=== PATIENT | female | born 1945 | race Caucasian/White ===

== ENCOUNTER → 2018-08-29 | Outpatient (CLI) | payer MEDICARE | END | disposition home or self-care (01) | LOC: RADUSWWP 13:22 | PROVIDERS: ATTEND Podiatrist | DX: M79.604 Pain in right leg (principal); M79.605 Pain in left leg | CPT/HCPCS: 93923 ==

== ENCOUNTER 2018-10-05 10:22 | Emergency (ER) | payer MEDICARE ==
[2018-10-05 10:47] VITALS: TEMP 97.9
--- NOTE | 2018-10-05 11:21 | ED ---
General Adult HPI - General Chief complaint: Recheck/Abnormal Lab/Rx Stated complaint: high blood pressure Time Seen by Provider: 10/05/18 10:25 Source: patient, RN notes reviewed Mode of arrival: ambulatory Limitations: no limitations - History of Present Illness Initial comments: This is a 73-year-old female who presents emergency Department states her blood pressure was high this morning. Patient states she was seen at the wound clinic for her legs and they noted her blood pressure be high so they sent her to the emergency department. Patient states she dropped her blood pressure pill on the floor today and she threw it up because it was dirty and she did not take another one that she was in a [place]. Patient states her blood pressure was el evated in the wound center but she was having no symptoms. Patient denies any headache patient denies numbness weakness. Patient denies any blurred vision. Patient denies any chest pain or palpitations. Patient denies any difficulty breathing shortness of breath per patient denies any nausea vomiting diarrhea. Patient states yesterday in the previous days her blood pressure was normal for her but today it was mildly elevated but she believes is current she didn't take her blood pressure. - Related Data Home Medications Medication Instructions Recorded Confirmed ALPRAZolam [Xanax] 0.25 mg PO BID PRN 08/24/18 10/05/18 Albuterol Nebulized [Ventolin 2.5 mg INHALATION Q4H 08/24/18 10/05/18 Nebulized] Albuterol Sulfate [Proventil Hfa] 1 - 2 puff INHALATION Q6HR PRN 08/24/18 10/05/18 Alendronate Sodium [Fosamax] 70 mg PO WEEKLY 08/24/18 10/05/18 Butalb/APAP/Caff 50-325-40Mg 1 tab PO Q4H PRN 08/24/18 10/05/18 [Fioricet 50-325-40] Calcitriol [Rocaltrol] 0.25 mcg PO WEEKLY 08/24/18 10/05/18 Cetirizine HCl [Zyrtec] 10 mg PO DAILY 08/24/18 10/05/18 Enalapril [Vasotec] 10 mg PO DAILY 08/24/18 10/05/18 Ergocalciferol (Vitamin D2) 50,000 unit PO WEEKLY 08/24/18 10/05/18 [Drisdol] Fluticasone Propionate [Flovent 2 puff INHALATION BID 08/24/18 10/05/18 Hfa 110mcg] Furosemide [Lasix] 20 mg PO BID 08/24/18 10/05/18 Gabapentin [Neurontin] 300 mg PO TID 08/24/18 10/05/18 Glucosam/Rey-Msm1/C/Cristian/Bosw 2 each PO DAILY 08/24/18 10/05/18 [Glucosamine-Chondroitin Tablet] Lansoprazole [Prevacid] 30 mg PO DAILY 08/24/18 10/05/18 Levothyroxine Sodium [Synthroid] 2 tab PO DAILY 08/24/18 10/05/18 Methocarbamol [Robaxin-750] 750 mg PO Q8HR 08/24/18 10/05/18 Montelukast [Singulair] 10 mg PO HS 08/24/18 10/05/18 Multivitamins, Thera [Multivitamin 1 tab PO DAILY 08/24/18 10/05/18 (formulary)] Potassium Chloride [K-Tab ER] 20 meq PO DAILY 08/24/18 10/05/18 Rosuvastatin [Crestor] 10 mg PO DAILY 08/24/18 10/05/18 Sertraline HCl [Zoloft] 100 mg PO BID 08/24/18 10/05/18 Verapamil HCl [Verapamil ER] 180 mg PO BID 08/24/18 10/05/18 Warfarin [Coumadin] 5 mg PO DAILY 08/24/18 10/05/18 Allergies Allergy/AdvReac Type Severity Reaction Status Date / Time acetylcysteine Allergy Rash/Hives Verified 10/05/18 10:47 [From Mucomyst] aspirin [From Soma Compound] Allergy Rash/Hives Verified 10/05/18 10:47 astemizole [From Hismanal] Allergy Rash/Hives Verified 10/05/18 10:47 bee pollen Allergy Anaphylaxis Verified 10/05/18 10:47 calcium carbonate Allergy Anaphylaxis Verified 10/05/18 10:47 [From Os-Spencer] carisoprodol Allergy Rash/Hives Verified 10/05/18 10:47 [From Soma Compound] cephalexin [From Keflex] Allergy Rash/Hives Verified 10/05/18 10:47 cigarette smoke Allergy Rash/Hives Verified 10/05/18 10:47 [place] And Derivatives Allergy Rash/Hives Verified 10/05/18 10:47 [[place]] cromolyn Allergy Rash/Hives Verified 10/05/18 10:47 erythromycin base Allergy Rash/Hives Verified 10/05/18 10:47 estrogens, conjugated Allergy Anaphylaxis Verified 10/05/18 10:47 [From Prempro] hydrochlorothiazide Allergy Anaphylaxis Verified 10/05/18 10:47 [From Dyazide] isoetharine [From Bronkosol] Allergy Rash/Hives Verified 10/05/18 10:47 medroxyprogesterone Allergy Anaphylaxis Verified 10/05/18 10:47 [From Prempro] meperidine [From Demerol] Allergy Rash/Hives Verified 10/05/18 10:47 metoclopramide [From Reglan] Allergy Anaphylaxis Verified 10/05/18 10:47 metoprolol [From Toprol XL] Allergy Anaphylaxis Verified 10/05/18 10:47 mold Allergy Rash/Hives Verified 10/05/18 10:47 naproxen [From Anaprox] Allergy Anaphylaxis Verified 10/05/18 10:47 perindopril [From Aceon] Allergy Anaphylaxis Verified 10/05/18 10:47 promethazine [From Phenergan] Allergy Rash/Hives Verified 10/05/18 10:47 ragweed pollen Allergy Rash/Hives Verified 10/05/18 10:47 spironolactone Allergy Anaphylaxis Verified 10/05/18 10:47 [From Aldactone] triamterene [From Dyazide] Allergy Anaphylaxis Verified 10/05/18 10:47 radiology dye Allergy Anaphylaxis Uncoded 10/05/18 10:47 Review of Systems ROS Statement: Those systems with pertinent positive or pertinent negative responses have been documented in the HPI. ROS Other: All systems not noted in ROS Statement are negative. Past Medical History Past Medical History: Atrial Fibrillation, Asthma, Deep Vein Thrombosis (DVT), GERD/Reflux, Hypertension, Osteoarthritis (OA), Pulmonary Embolus (PE), Renal Disease, Thyroid Disorder Additional Past Medical History / Comment(s): MIGRAINE HEADACHE, RIGHT LEG-DVT History of Any Multi-Drug Resistant Organisms: MRSA Date of last positivie culture/infection: 2008 MDRO Source:: LEFT KNEE Past Surgical History: Appendectomy, Cholecystectomy, Tonsillectomy Additional Past Surgical History / Comment(s): D&C, Past Anesthesia/Blood Transfusion Reactions: No Reported Reaction Past Psychological History: No Psychological Hx Reported Smoking Status: Never smoker Past Alcohol Use History: None Reported Past Drug Use History: None Reported - Past Family History Mother Family Medical History: No Reported History Father Family Medical History: Hypertension General Exam - General Exam Comments Initial Comments: GENERAL: Patient is well-developed and well-nourished. Patient is nontoxic and well- hydrated and is in no acute distress. ENT: Neck is soft and supple. No significant lymphadenopathy is noted. Oropharynx is clear. Moist mucous membranes. Neck has full range of motion without eliciting any pain. EYES: The sclera were anicteric and conjunctiva were pink and moist. Extraocular movements were intact and pupils were equal round and reactive to light. Eyelids were unremarkable. PULMONARY: Unlabored respirations. Good breath sounds bilaterally. No audible rales rhonchi or wheezing was noted. CARDIOVASCULAR: There is a regular rate and rhythm without any murmurs gallops or rubs. ABDOMEN: Soft and nontender with normal bowel sounds. SKIN: Skin is clear with no lesions or rashes and otherwise unremarkable. NEUROLOGIC: Patient is alert and oriented x3. Cranial nerves II through XII are grossly intact. Motor and sensory are also intact. Normal speech, volume and content. Symmetrical smile. MUSCULOSKELETAL: Normal extremities with adequate strength and full range of motion. Bilateral edema LYMPHATICS: No significant lymphadenopathy is noted PSYCHIATRIC: Normal psychiatric evaluation. Limitations: no limitations Course Vital Signs 10/05/18 10:43 Temperature 97.9 F Pulse Rate 93 Respiratory 16 Rate Blood Pressure 169/73 O2 Sat by Pulse 98 Oximetry Disposition Clinical Impression: Essential hypertension Disposition: HOME SELF-CARE Instructions (If sedation given, give patient instructions): Hypertension (ED) Is patient prescribed a controlled substance at d/c from ED?: No Referrals: Tomás Hanks DO [Primary Care Provider] - 1-2 days Time of Disposition: 11:20
[2018-10-05] MEDS ORDERED: LISINOPRIL 10 MG TAB PO STA (11:31)
[2018-10-05] MEDS ORDERED: VERAPAMIL SR 180 MG TABLET.ER PO STA (11:34)
[2018-10-05 11:44] VITALS: BP 175/78; PULSE 77; RESP 18
== END 2018-10-05 11:56 | disposition home or self-care (01) ==
LOC: EC 10:22
DX: I10 Essential (primary) hypertension (principal); I48.91 Unspecified atrial fibrillation; J45.909 Unspecified asthma, uncomplicated; K21.9 Gastro-esophageal reflux disease without esophagitis; E07.9 Disorder of thyroid, unspecified; Z86.718 Personal history of other venous thrombosis and embolism; Z86.711 Personal history of pulmonary embolism; Z86.14 Personal history of Methicillin resistant Staphylococcus aureus infection; Z79.51 Long term (current) use of inhaled steroids; Z79.890 Hormone replacement therapy; Z79.01 Long term (current) use of anticoagulants; Z79.899 Other long term (current) drug therapy; Z88.8 Allergy status to other drugs, medicaments and biological substances; Z88.6 Allergy status to analgesic agent; Z91.048 Other nonmedicinal substance allergy status; Z88.1 Allergy status to other antibiotic agents; Z91.018 Allergy to other foods; Z88.5 Allergy status to narcotic agent; Z91.041 Radiographic dye allergy status
CPT/HCPCS: 99283

== ENCOUNTER 2018-10-09 17:33 | Inpatient (IN) | payer MEDICARE ==
[2018-10-09] MEDS ORDERED: SODIUM CHLORIDE 0.9% 1,000 ML IV ONE (18:18)
--- NOTE | 2018-10-09 18:21 | ED ---
General Adult HPI - General Chief complaint: Wound/Laceration Stated complaint: LEFT LEG WOUND PROBLEM Time Seen by Provider: 10/09/18 18:03 Source: patient Mode of arrival: wheelchair Limitations: no limitations - History of Present Illness Initial comments: 73-year-old female with PMH of chronic wounds, atrial fibrillation, PE/DVT on coumadin (last INR unknown) presenting today for chief complaint of increased swelling and redness legs bilaterally. Patient states that she has had chronic wounds of the bilateral lower extremities for the past 2 years. She states they have been treating them more aggressively for the past 3 months, she states her physician managing the wounds is Dr. Vu. She states that she was seen last at the wound clinic on Monday. She states that at this time legs are mildly erythematous and has been chronically swollen. She states that since appointment the swelling has been increasing as well as redness and today she felt as though her skin was tight and it was burning. Patient applied lotion attempt to help however this did not alleviate symptoms. Patient has a fever, chills, general malaise. Remaining review of systems negative, patient denies any recent shortness of breath, chest pain, back pain, abdominal pain, nausea or vomiting, numbness or tingling, dysuria or hematuria, constipation or diarrhea, headaches or visual changes, or any other complaints. Upon arrival patient does not appear toxic, appearing well-afebrile with VS within acceptable limits. - Related Data Home Medications Medication Instructions Recorded Confirmed ALPRAZolam [Xanax] 0.25 mg PO BID PRN 08/24/18 10/09/18 Albuterol Nebulized [Ventolin 2.5 mg INHALATION RT-QID PRN 08/24/18 10/09/18 Nebulized] Albuterol Sulfate [Proventil Hfa] 1 - 2 puff INHALATION RT-Q6H PRN 08/24/18 0 10/09/18 Alendronate Sodium [Fosamax] 70 mg PO Q7D 08/24/18 10/09/18 Butalb/APAP/Caff 50-325-40Mg 1 tab PO Q4H PRN 08/24/18 10/09/18 [Fioricet 50-325-40] Calcitriol [Rocaltrol] 0.25 mcg PO MOWEFR 08/24/18 10/09/18 Enalapril [Vasotec] 10 mg PO DAILY 08/24/18 10/09/18 Ergocalciferol (Vitamin D2) 50,000 unit PO Q7D 08/24/18 10/09/18 [Drisdol] Furosemide [Lasix] 20 mg PO BID 08/24/18 10/09/18 Gabapentin [Neurontin] 300 mg PO TID 08/24/18 10/09/18 Glucosam/Rey-Msm1/C/Cristian/Bosw 2 tab PO DAILY 08/24/18 10/09/18 [Glucosamine-Chondroitin Tablet] Levothyroxine Sodium [Synthroid] 250 mcg PO DAILY 08/24/18 10/09/18 Methocarbamol [Robaxin-750] 750 mg PO Q8HR 08/24/18 10/09/18 Montelukast [Singulair] 10 mg PO HS 08/24/18 10/09/18 Multivitamins, Thera [Multivitamin 1 tab PO DAILY 08/24/18 10/09/18 (formulary)] Potassium Chloride [K-Tab ER] 20 meq PO DAILY 08/24/18 10/09/18 Rosuvastatin [Crestor] 10 mg PO DAILY 08/24/18 10/09/18 Sertraline HCl [Zoloft] 200 mg PO DAILY 08/24/18 10/09/18 Warfarin [Coumadin] 10 mg PO HS 08/24/18 10/09/18 Clotrimazole/Betamethasone Dip 1 applic TOPICAL BID 10/05/18 10/09/18 [Lotrisone Cream] EPINEPHrine (Auto Inject) [Epipen] 0.3 mg IM ONCE PRN 10/05/18 10/09/18 Fexofenadine HCl [Jamia Allergy] 180 mg PO DAILY PRN 10/05/18 10/09/18 Fluticasone Propionate [Flovent 2 puff INHALATION RT-BID 10/05/18 10/09/18 Hfa 110 mcg] Lansoprazole [Prevacid] 30 mg PO DAILY 10/05/18 10/09/18 Verapamil Sr [Isoptin Sr] 180 mg PO BID 10/05/18 10/09/18 Allergies Allergy/AdvReac Type Severity Reaction Status Date / Time acetylcysteine Allergy Rash/Hives Verified 10/09/18 18:19 [From Mucomyst] aspirin [From Soma Compound] Allergy Rash/Hives Verified 10/09/18 18:19 astemizole [From Hismanal] Allergy Rash/Hives Verified 10/09/18 18:19 bee pollen Allergy Anaphylaxis Verified 10/09/18 18:19 calcium carbonate Allergy Anaphylaxis Verified 10/09/18 18:19 [From Os-Spencer] carisoprodol Allergy Rash/Hives Verified 10/09/18 18:19 [From Soma Compound] cephalexin [From Keflex] Allergy Rash/Hives Verified 10/09/18 18:19 cigarette smoke Allergy Rash/Hives Verified 10/09/18 18:19 [place] And Derivatives Allergy Rash/Hives Verified 10/09/18 18:19 [[place]] cromolyn Allergy Rash/Hives Verified 10/09/18 18:19 erythromycin base Allergy Rash/Hives Verified 10/09/18 18:19 estrogens, conjugated Allergy Anaphylaxis Verified 10/09/18 18:19 [From Prempro] hydrochlorothiazide Allergy Anaphylaxis Verified 10/09/18 18:19 [From Dyazide] isoetharine [From Bronkosol] Allergy Rash/Hives Verified 10/09/18 18:19 medroxyprogesterone Allergy Anaphylaxis Verified 10/09/18 18:19 [From Prempro] meperidine [From Demerol] Allergy Rash/Hives Verified 10/09/18 18:19 metoclopramide [From Reglan] Allergy Anaphylaxis Verified 10/09/18 18:19 metoprolol [From Toprol XL] Allergy Anaphylaxis Verified 10/09/18 18:19 mold Allergy Rash/Hives Verified 10/09/18 18:19 naproxen [From Anaprox] Allergy Anaphylaxis Verified 10/09/18 18:19 perindopril [From Aceon] Allergy Anaphylaxis Verified 10/09/18 18:19 promethazine [From Phenergan] Allergy Rash/Hives Verified 10/09/18 18:19 ragweed pollen Allergy Rash/Hives Verified 10/09/18 18:19 spironolactone Allergy Anaphylaxis Verified 10/09/18 18:19 [From Aldactone] triamterene [From Dyazide] Allergy Anaphylaxis Verified 10/09/18 18:19 radiology dye Allergy Anaphylaxis Uncoded 10/09/18 17:46 Review of Systems ROS Statement: Those systems with pertinent positive or pertinent negative responses have been documented in the HPI. ROS Other: All systems not noted in ROS Statement are negative. Past Medical History Past Medical History: Atrial Fibrillation, Asthma, Deep Vein Thrombosis (DVT), GERD/Reflux, Hypertension, Osteoarthritis (OA), Pulmonary Embolus (PE), Renal Disease, Thyroid Disorder Additional Past Medical History / Comment(s): MIGRAINE HEADACHE, RIGHT LEG-DVT History of Any Multi-Drug Resistant Organisms: MRSA Date of last positivie culture/infection: 2008 MDRO Source:: LEFT KNEE Past Surgical History: Appendectomy, Cholecystectomy, Tonsillectomy Additional Past Surgical History / Comment(s): D&C, Past Anesthesia/Blood Transfusion Reactions: No Reported Reaction Past Psychological History: No Psychological Hx Reported Smoking Status: Never smoker Past Alcohol Use History: None Reported Past Drug Use History: None Reported - Past Family History Mother Family Medical History: No Reported History Father Family Medical History: Hypertension General Exam - General Exam Comments Initial Comments: General: The patient is awake and alert, in no distress. Eye: Pupils are equal, round and reactive to light, extra-ocular movements are intact. No nystagmus. There is normal conjunctiva bilaterally. No signs of icterus. Ears, nose, mouth and throat: There are moist mucous membranes and no oral lesions. Neck: The neck is supple, there is no tenderness or JVD. Cardiovascular: There is a regular rate and rhythm. No murmur, rub or gallop is appreciated. Respiratory: Lungs are clear to auscultation, respirations are non-labored, breath sounds are equal. No wheezes, stridor, rales, or rhonchi. Gastrointestinal: Soft, non-distended, non-tender abdomen without masses or organomegaly noted. There is no rebound or guarding present. Musculoskeletal: Normal ROM, no tenderness. Strength 5/5. Sensation intact. DP pulses equal bilaterally 2+. Neurological: A&O x 3. CN II-XII intact, There are no obvious motor or sensory deficits. Coordination appears grossly intact. Speech is normal. Skin: Skin is warm and dry and no rashes or lesions are noted. Significant erythema and warmth with poorly demarcated borders >50% of the left LE and ~25- 50% of the right LE. Pitting edema of the LE b/l Psychiatric: Cooperative, appropriate mood & affect, normal judgment. Limitations: no limitations Course Vital Signs 10/09/18 10/09/18 17:42 20:58 Temperature 98.2 F 98.8 F Pulse Rate 90 87 Respiratory 18 14 Rate Blood Pressure 157/79 134/77 O2 Sat by Pulse 98 95 Oximetry Medical Decision Making - Medical Decision Making 73-year-old female presenting for increasing warmth, burning of the bilateral lower extremities with left greater than right. Patient states that she has been treated at the wound center, she states she did have mild erythema however today it seemed to increase significantly and is now painful, burning. There is extensive cellulitis of the lower chemistry bilaterally with left greater than right. Area warm to palpation. 8 patient afebrile does not appear toxic. Broad spectrum antibiotics initiated. Patient will be admitted for intravenous antibiotic therapy given the extent of cellulitis. Laboratory studies stable, there is elevation of CRP. Patient is agreeable to admission. I did discuss the case attending provider Dr. Moy who is agreeable with admission who will contact admitting provider. - Lab Data Result diagrams: 10/09/18 08:40 10/09/18 08:40 Lab Results 10/09/18 10/09/18 10/09/18 Range/Units 08:40 08:40 08:40 WBC 6.2 (3.8-10.6) k/uL RBC 4.72 (3.80-5.40) m/uL Hgb 13.1 (11.4-16.0) gm/dL Hct 41.1 (34.0-46.0) % MCV 87.1 (80.0-100.0) fL MCH 27.8 (25.0-35.0) pg MCHC 32.0 (31.0-37.0) g/dL RDW 13.7 (11.5-15.5) % Plt Count 221 (150-450) k/uL Neutrophils % 69 % Lymphocytes % 18 % Monocytes % 7 % Eosinophils % 3 % Basophils % 0 % Neutrophils # 4.3 (1.3-7.7) k/uL Lymphocytes # 1.1 (1.0-4.8) k/uL Monocytes # 0.5 (0-1.0) k/uL Eosinophils # 0.2 (0-0.7) k/uL Basophils # 0.0 (0-0.2) k/uL ESR Cancelled PT (9.0-12.0) sec INR (<1.2) APTT (22.0-30.0) sec Sodium 139 (137-145) mmol/L Potassium 4.6 (3.5-5.1) mmol/L Chloride 105 (98-107) mmol/L Carbon Dioxide 26 (22-30) mmol/L Anion Gap 8 mmol/L BUN 29 H (7-17) mg/dL Creatinine 0.91 (0.52-1.04) mg/dL Est GFR (CKD-EPI)AfAm 73 (>60 ml/min/1.73 sqM) Est GFR (CKD-EPI)NonAf 63 (>60 ml/min/1.73 sqM) Glucose 92 (74-99) mg/dL Plasma Lactic Acid Armond 0.9 (0.7-2.0) mmol/L Calcium 9.9 (8.4-10.2) mg/dL Total Bilirubin 0.5 (0.2-1.3) mg/dL AST 22 (14-36) U/L ALT 29 (9-52) U/L Alkaline Phosphatase 57 (38-126) U/L C-Reactive Protein 16.9 H (<10.0) mg/L Total Protein 7.2 (6.3-8.2) g/dL Albumin 4.2 (3.5-5.0) g/dL 10/09/18 Range/Units 08:40 WBC (3.8-10.6) k/uL RBC (3.80-5.40) m/uL Hgb (11.4-16.0) gm/dL Hct (34.0-46.0) % MCV (80.0-100.0) fL MCH (25.0-35.0) pg MCHC (31.0-37.0) g/dL RDW (11.5-15.5) % Plt Count (150-450) k/uL Neutrophils % % Lymphocytes % % Monocytes % % Eosinophils % % Basophils % % Neutrophils # (1.3-7.7) k/uL Lymphocytes # (1.0-4.8) k/uL Monocytes # (0-1.0) k/uL Eosinophils # (0-0.7) k/uL Basophils # (0-0.2) k/uL ESR PT 10.2 (9.0-12.0) sec INR 0.9 (<1.2) APTT 25.2 (22.0-30.0) sec Sodium (137-145) mmol/L Potassium (3.5-5.1) mmol/L Chloride (98-107) mmol/L Carbon Dioxide (22-30) mmol/L Anion Gap mmol/L BUN (7-17) mg/dL Creatinine (0.52-1.04) mg/dL Est GFR (CKD-EPI)AfAm (>60 ml/min/1.73 sqM) Est GFR (CKD-EPI)NonAf (>60 ml/min/1.73 sqM) Glucose (74-99) mg/dL Plasma Lactic Acid Armond (0.7-2.0) mmol/L Calcium (8.4-10.2) mg/dL Total Bilirubin (0.2-1.3) mg/dL AST (14-36) U/L ALT (9-52) U/L Alkaline Phosphatase (38-126) U/L C-Reactive Protein (<10.0) mg/L Total Protein (6.3-8.2) g/dL Albumin (3.5-5.0) g/dL Disposition Clinical Impression: Cellulitis of both lower extremities Disposition: ADMITTED IP TO THIS [facility] Condition: Stable Is patient prescribed a controlled substance at d/c from ED?: No Time of Disposition: 20:25 Decision to Admit Reason: Admit from EC Decision Date: 10/09/18 Decision Time: 19:20
[2018-10-09] MEDS ORDERED: LEVOFLOXACIN 750MG-D5W PMX 750 MG in DEXTROSE/WATER 1 150ML.BAG IVPB STA (18:50)
[2018-10-09 18:57] LABS: Basophils % (A) 0 %; Eosinophils # (A) 0.2 k/uL (0-0.7); Eosinophils % (A) 3 %; HCT 41.1 % (34.0-46.0); HGB 13.1 gm/dL (11.4-16.0); Lymphocytes # (A) 1.1 k/uL (1.0-4.8); Lymphocytes % (A) 18 %; MCH 27.8 pg (25.0-35.0); MCV 87.1 fL (80.0-100.0); Mean Platelet Volume 8.6; Monocytes # (A) 0.5 k/uL (0-1.0); Monocytes % (A) 7 %; Neutrophils # (A) 4.3 k/uL (1.3-7.7); Neutrophils % (A) 69 %; Platelet Count 221 k/uL (150-450); RBC 4.72 m/uL (3.80-5.40); RDW 13.7 % (11.5-15.5); WBC 6.2 k/uL (3.8-10.6)
[2018-10-09 19:08] LABS: INR 0.9 (<1.2); Partial Thromboplastin Time 25.2 sec (22.0-30.0); Prothrombin Time 10.2 sec (9.0-12.0)
[2018-10-09] MEDS ORDERED: NALOXONE 0.4 MG/ML 1 ML VIAL IV PRN (19:13)
[2018-10-09 19:20] LABS: Albumin 4.2 g/dL (3.5-5.0); C Reactive Protein 16.9 mg/L (<10.0); Calcium 9.9 mg/dL (8.4-10.2); Potassium 4.6 mmol/L (3.5-5.1); Total Bilirubin 0.5 mg/dL (0.2-1.3); Total Protein 7.2 g/dL (6.3-8.2)
[2018-10-09] MEDS: SODIUM CHLORIDE 0.9% 1,000 ML IV SCH (19:32)
[2018-10-10] MEDS ORDERED: ALPRAZolam 0.25 MG TAB PO PRN (06:14)
[2018-10-10] MEDS ORDERED: EPINEPHrine 1 MG/ML 1 ML AMP IM PRN (06:14)
[2018-10-10] MEDS ORDERED: ALBUTEROL NEBULIZED 2.5 MG/3 ML INHALATION PRN (06:14)
[2018-10-10] MEDS ORDERED: NON-FORMULARY DRUG (Fexofenadine Hcl [Allegra Allergy] 180 MG) PO PRN (06:14)
[2018-10-10] MEDS ORDERED: ERGOCALCIFEROL 50,000 UNIT CAP PO SCH (06:15)
[2018-10-10 08:48] LABS: Prothrombin Time 11.1 sec (9.0-12.0)
[2018-10-10] MEDS ORDERED: [UNRECOGNIZED DRUG - OTHER] PO SCH (09:00)
[2018-10-10] MEDS: PANTOPRAZOLE 40 MG TABLET PO SCH (09:14)
[2018-10-10] MEDS: ATORVASTATIN 20 MG TAB PO SCH (09:14)
[2018-10-10] MEDS: LISINOPRIL 20 MG TAB PO SCH (09:14)
[2018-10-10] MEDS: FUROSEMIDE 20 MG TAB PO SCH ×2 (09:14→16:26)
[2018-10-10] MEDS: GABAPENTIN 300 MG CAP PO SCH ×3 (09:14→21:49)
[2018-10-10] MEDS: SODIUM CHLORIDE 0.9% 1,000 ML IV SCH ×2 (09:14→20:38)
[2018-10-10] MEDS: SERTRALINE 100 MG TAB PO SCH (09:15)
[2018-10-10] MEDS: POTASSIUM CHLORIDE ER 20 MEQ TAB.ER PO SCH (09:15)
[2018-10-10] MEDS: LEVOTHYROXINE 125 MCG TAB PO SCH (09:24)
[2018-10-10] MEDS: CLOTRIMAZOLE/BETAMETH 1-0.05% CREAM 45 GM TUBE TOPICAL SCH ×2 (09:25→21:00)
[2018-10-10] MEDS: VERAPAMIL SR 180 MG TABLET.ER PO SCH ×2 (09:25→20:38)
--- NOTE | 2018-10-10 09:47 | HP ---
HISTORY AND PHYSICAL CHIEF COMPLAINT: A 73-year-old white female with past medical history of chronic wound, atrial fibrillation, pulmonary embolism, DVT on Coumadin. The last INR presenting with increased swelling, redness to the lower legs, chronic wounds bilateral lower extremities for 2 years. She has been seeing Dr. Vu. They have been treating more aggressively last 3 weeks. Her legs are severely swollen and red and throughout the entire legs has severe lymphedema type changes. HOME MEDICATIONS: Home medications include Xanax, albuterol, Fosamax, Fioricet, Rocaltrol, Vasotec, vitamin D, Lasix, Neurontin, glucosamine, Synthroid, Robaxin, Singulair, multivitamin, Crestor, Zoloft, Coumadin. ALLERGIES: She is allergic to multiple things. Please see list. PAST MEDICAL HISTORY: Pulmonary embolism, hypertension, osteoarthritis, renal disease, hypothyroidism, A. fib, asthma, DVT, GERD. Negative except for mentioned in HPI. FAMILY HISTORY: Mother negative. Father hypertension. PHYSICAL EXAMINATION: Obese, white female, in no acute distress. Pupils equal, round, react to light and accommodation. NECK: Supple. No mass. PSYCH: Fair mood and affect. NEUROLOGIC: Cranial nerves intact. HEART: S1, S2. GI: Soft, nontender. MUSCULOSKELETAL: Normal range of motion. NEUROLOGIC: Alert and oriented x3. SKIN: No rashes or lesions except for lower legs with extremely red and deep marked redness, warmth and swelling to bilateral legs from the toes up to the knees bilaterally. Temp 98.2, pulse 80 to 90, respiratory rate 14 to 18, blood pressure 130s to 150s over 70s, O2 of 95% to 98% on room air. ASSESSMENT: 1. Extensive cellulitis of the lower extremities bilaterally. 2. Bilateral lymphedema type changes. IV antibiotics will be needed. She has multiple allergies. Infectious Disease will be consulted. Extreme fast swelling and redness that has progressed over the past day or 2 significantly fast. We have to admit her right away. Lactic acid is negative. White count is normal so far. C-reactive protein is high at 16.9. We will get a consult with Infectious Disease and possible vascular surgeon. MMODL / IJN: [id number] /
--- NOTE | 2018-10-10 10:12 | US ---
EXAMINATION TYPE: US venous doppler duplex LE DATE OF EXAM: 10/10/2018 9:46 AM COMPARISON: NONE CLINICAL HISTORY: swelling. SIDE PERFORMED: Bilateral TECHNIQUE: The lower extremity deep venous system is examined utilizing real time linear array sonog ana with graded compression, doppler sonography and color-flow sonography. VESSELS IMAGED: External Iliac Vein (EIV) Common Femoral Vein Deep Femoral Vein Greater Saphenous Vein * Femoral Vein Popliteal Vein Small Saphenous Vein * Proximal Calf Veins, not seen due to swelling and obesity (* superficial vessels) Morbidly obese patient, technically difficult study. Right Leg: Appears negative for DVT Left Leg: Appears negative for DVT IMPRESSION: 1. No diagnostic evidence of DVT.
[2018-10-10] MEDS: MULTIVITAMINS, THERA 1 EACH TAB PO SCH (11:04)
[2018-10-10] MEDS: CALCITRIOL 0.25 MCG CAP PO SCH (11:04)
[2018-10-10] MEDS: FLUTICASONE 110 MCG INHALER INHALATION SCH ×2 (11:31→21:01)
--- NOTE | 2018-10-10 12:13 | P.CON ---
Consult Note - . Consult date: 10/10/18 Assessment/Plan:: Wound care and vascular consultation: Reason for consult: This 73-year-old woman is being seen by Dr. sumner in the wound center. They have healed up her open ulcerations. She was readmitted with leg swelling. She has had no further drainage. Physical examination: Obese alert oriented 73-year-old woman in no distress. Looking a bit old for her chronologic years. She has 2-3+ edema of both lower legs. She has circumferential erythema just below mid calf on both legs. There is no open ulceration or weeping. This patient's ulcerations have in fact healed. She currently needs compression. She is working on fitting for CircAid stockings with Dr. Vu in the wound center. I have instructed nursing as to the placement of Lobo wraps. We will see her further as needed.
[2018-10-10] MEDS: CLINDAMYCIN 600 MG in DEXTROSE 5% IN WATER 50 ML IVPB SCH ×4 (16:25→23:55)
[2018-10-10] MEDS: WARFARIN 10 MG TAB PO SCH (16:26)
[2018-10-10] MEDS: MONTELUKAST 10 MG TAB PO SCH (20:37)
[2018-10-10] MEDS: BUTALB/APAP/CAFF 50-325-40MG TAB PO PRN (20:37)
--- NOTE | 2018-10-11 00:11 | CONS ---
CONSULTATION DATE OF SERVICE: 10/10/2018. REASON FOR CONSULTATION: Bilateral lower extremity cellulitis. HISTORY OF PRESENT ILLNESS: The patient is a 73-year-old female with past medical history significant for PE, DVT, atrial fibrillation with the patient is on Coumadin. Patient presenting to the ER at [facility] yesterday with chief complaints of increasing swelling and redness to both legs. The patient's symptoms have been going for about a week before she was admitted to the hospital. The patient has been complaining of dull aching pain to the both legs at times burning with intensity of 5 to 6/10, worse with weightbearing. Currently with blisters on the open wound or any drainage. Denies high- grade fever. However did have some chills. With these symptoms, the patient presented to the hospital. Patient was evaluated by the ER physician. The patient did have lower extremity Doppler which was negative for DVT. No fevers were recorded and the patient white count was normal. The patient did have multiple antibiotic allergies. The patient was admitted to the hospital. Infectious Disease was consulted for further recommendations regarding antibiotic therapy. REVIEW OF SYSTEMS: Positive points have been mentioned in HPI. Rest of the 14 review of systems has been negative. PAST MEDICAL HISTORY: DVT/PE, chronic venous stasis ulcer to the leg, atrial fibrillation, asthma, gastroesophageal reflux disease, hypothyroidism, osteoarthritis, hypertension, previous history of MRSA infection. PAST SURGICAL HISTORY: Appendectomy, cholecystectomy, tonsillectomy. SOCIAL HISTORY: No history of smoking, drinking or drug use. FAMILY HISTORY: Father history of hypertension. ALLERGIES: TO MULTIPLE MEDICATION MORE THAN 20 OF THEM HAS BEEN LISTED ON THE CHART INCLUDING ALLERGIES TO CEPHALEXIN AND PENICILLIN. MEDICATIONS: Medications include the patient is currently on , Ventolin. Xanax Lipitor, Lotrisone, Epinephrine, Lasix, Neurontin, Synthroid, Zestril, Singulair, Theragran, Narcan, Protonix, K-Dur, Zoloft, . PHYSICAL EXAMINATION: On examination, blood pressure 147/69 with a pulse of 74, temperature is 97.5. She is 96% on room air. General description is an elderly female lying in bed in no distress. No tachypnea or accessory muscles of respiration use. HEENT: Shows no pallor or scleral icterus. Oral mucosal membranes are dry. No pharyngeal erythema or thrush. NECK: Trachea is central. No thyromegaly. LUNGS: Unlabored breathing. Clear to auscultation anteriorly. Heart S1, S2. Regular rate and rhythm. ABDOMEN: Soft, no tenderness. No guarding or rigidity. Extremities diffuse swelling and redness with some superficial pressure on the right leg. No purulent drainage. Neurological: Patient is awake, alert, oriented x3. Mood and affect normal. LABS: Hemoglobin is 13.1 with a white count of 6.2, BUN of 29, creatinine 0.91. Liver enzymes are normal. White count has been normal. Blood culture obtained currently pending. DIAGNOSTIC IMPRESSION AND PLAN: 1. Patient with bilateral lower extremity cellulitis. The patient did have diffuse swelling and redness likely streptococcal disease. 2. The patient to have multiple antibiotic allergies that will limit the number of antibiotics that could be used. PLAN: 1. Clindamycin and IV piggyback q.8 hours. 2. dressing to the open area on the right leg followed by Lobo wrap from just above to below the knee. 3. We will follow up on clinical condition and culture to further adjust medication if needed. Thank you for this consultation. Will follow this patient along with you. MMODL / IJN: [id number] /
[2018-10-11] MEDS: LEVOTHYROXINE 125 MCG TAB PO SCH (05:47)
[2018-10-11] MEDS: FLUTICASONE 110 MCG INHALER INHALATION SCH ×2 (08:01→21:02)
[2018-10-11 08:50] LABS: INR 1.1 (<1.2); Prothrombin Time 11.4 sec (9.0-12.0)
[2018-10-11] MEDS: POTASSIUM CHLORIDE ER 20 MEQ TAB.ER PO SCH (09:41)
[2018-10-11] MEDS: LISINOPRIL 20 MG TAB PO SCH (09:41)
[2018-10-11] MEDS: ATORVASTATIN 20 MG TAB PO SCH (09:41)
[2018-10-11] MEDS: GABAPENTIN 300 MG CAP PO SCH ×3 (09:42→21:31)
[2018-10-11] MEDS: SERTRALINE 100 MG TAB PO SCH (09:43)
[2018-10-11] MEDS: PANTOPRAZOLE 40 MG TABLET PO SCH (09:43)
[2018-10-11] MEDS: FUROSEMIDE 20 MG TAB PO SCH ×2 (09:43→15:57)
[2018-10-11] MEDS: VERAPAMIL SR 180 MG TABLET.ER PO SCH ×2 (09:44→21:31)
[2018-10-11] MEDS: CLOTRIMAZOLE/BETAMETH 1-0.05% CREAM 45 GM TUBE TOPICAL SCH ×2 (09:46→21:19)
[2018-10-11] MEDS: CLINDAMYCIN 600 MG in DEXTROSE 5% IN WATER 50 ML IVPB SCH ×6 (11:09→23:31)
--- NOTE | 2018-10-11 15:27 | PN ---
PROGRESS NOTE DATE OF SERVICE: 10/11/2018 REASON FOR FOLLOWUP: Bilateral lower extremity cellulitis. INTERVAL HISTORY: The patient is currently afebrile. The patient is breathing comfortably. The pain she was complaining of yesterday seems to have slightly improved. Denies having any abdominal pain and no diarrhea with current antibiotic therapy. PHYSICAL EXAMINATION: Blood pressure 156/82 with a pulse of 66, temperature 97.7, she is 97% on room air. General description is an elderly female, up in the chair in no distress. RESPIRATORY SYSTEM: Unlabored breathing, clear to auscultation anteriorly. HEART: S1, S2. Regular rate and rhythm. ABDOMEN: Soft, no tenderness. Bilateral leg swelling persisted, only slight decrease. LABS: INR is 1.1. Blood culture has been negative. DIAGNOSTIC IMPRESSION AND PLAN: Patient with bilateral lower extremity cellulitis. The patient did have diffuse swelling, consistent with multiple antibiotic allergy. Currently on the clindamycin to continue along with Lobo wrap to keep some of the swelling down and evaluate the legs tomorrow. Continue supportive care. MMODL / IJN: [id number] /
[2018-10-11] MEDS: SODIUM CHLORIDE 0.9% 1,000 ML IV SCH ×2 (17:09→23:31)
[2018-10-11] MEDS: MULTIVITAMINS, THERA 1 EACH TAB PO SCH (17:15)
[2018-10-11] MEDS: WARFARIN 10 MG TAB PO SCH (18:01)
[2018-10-11] MEDS: MONTELUKAST 10 MG TAB PO SCH (21:31)
[2018-10-12] MEDS: LEVOTHYROXINE 125 MCG TAB PO SCH (05:49)
[2018-10-12] MEDS: PANTOPRAZOLE 40 MG TABLET PO SCH (07:57)
[2018-10-12] MEDS: ATORVASTATIN 20 MG TAB PO SCH (07:57)
[2018-10-12] MEDS: LISINOPRIL 20 MG TAB PO SCH (07:57)
[2018-10-12] MEDS: CLINDAMYCIN 600 MG in DEXTROSE 5% IN WATER 50 ML IVPB SCH ×4 (07:57→17:34)
[2018-10-12] MEDS: FUROSEMIDE 20 MG TAB PO SCH ×2 (07:58→17:35)
[2018-10-12] MEDS: GABAPENTIN 300 MG CAP PO SCH ×3 (07:58→22:41)
[2018-10-12] MEDS: SERTRALINE 100 MG TAB PO SCH (07:58)
[2018-10-12] MEDS: POTASSIUM CHLORIDE ER 20 MEQ TAB.ER PO SCH (07:59)
[2018-10-12] MEDS: VERAPAMIL SR 180 MG TABLET.ER PO SCH ×2 (07:59→22:41)
[2018-10-12 08:38] LABS: INR 1.2 (<1.2); Prothrombin Time 12.2 sec (9.0-12.0)
[2018-10-12] MEDS: FLUTICASONE 110 MCG INHALER INHALATION SCH ×2 (09:17→20:00)
[2018-10-12] MEDS: BUTALB/APAP/CAFF 50-325-40MG TAB PO PRN ×2 (11:54→17:34)
[2018-10-12] MEDS: CALCITRIOL 0.25 MCG CAP PO SCH (11:54)
[2018-10-12] MEDS: MULTIVITAMINS, THERA 1 EACH TAB PO SCH (11:54)
[2018-10-12] MEDS: CLOTRIMAZOLE/BETAMETH 1-0.05% CREAM 45 GM TUBE TOPICAL SCH ×2 (11:58→22:41)
[2018-10-12] MEDS: SODIUM CHLORIDE 0.9% 1,000 ML IV SCH (17:33)
[2018-10-12] MEDS ORDERED: WARFARIN 3 MG TAB PO ONE (18:00)
[2018-10-12] MEDS: MONTELUKAST 10 MG TAB PO SCH (22:42)
--- NOTE | 2018-10-12 23:22 | PN ---
PROGRESS NOTE DATE OF SERVICE: 10/12/2018. REASON FOR FOLLOWUP: Bilateral lower extremity cellulitis. INTERVAL HISTORY: The patient is currently afebrile. The patient is breathing comfortably. Denies any chest pain or cough. Leg swelling and redness has improved. No nausea or vomiting and no diarrhea. PHYSICAL EXAMINATION: Blood pressure 150/73 with a pulse of 68, temperature 98, she is 97% on room air. GENERAL DESCRIPTION: An elderly female, lying in bed in no distress. RESPIRATORY SYSTEM: Unlabored breathing. Clear to auscultation anteriorly. HEART: S1, S2. Regular rate and rhythm. ABDOMEN: Soft. EXTREMITIES: Bilateral leg swelling and redness is decreased. LABS: Blood culture negative. IMPRESSION/PLAN: Patient with bilateral lower extremity cellulitis. The patient did have diffuse swelling with likely streptococcal disease, currently covered with clindamycin because of multiple antibiotic allergies include both penicillin and Keflex. The patient continues to improve. Finish short course of oral clindamycin. Continue with Lobo wrap to keep the swelling down. Continue supportive care. MMODL / IJN: [id number] /
[2018-10-13] MEDS: CLINDAMYCIN 600 MG in DEXTROSE 5% IN WATER 50 ML IVPB SCH ×6 (00:06→17:41)
[2018-10-13] MEDS: SODIUM CHLORIDE 0.9% 1,000 ML IV SCH ×2 (01:52→17:43)
[2018-10-13] MEDS: LEVOTHYROXINE 125 MCG TAB PO SCH (05:56)
[2018-10-13] MEDS: FLUTICASONE 110 MCG INHALER INHALATION SCH ×2 (07:16→22:01)
[2018-10-13] MEDS: PANTOPRAZOLE 40 MG TABLET PO SCH (07:51)
[2018-10-13] MEDS: ATORVASTATIN 20 MG TAB PO SCH (07:52)
[2018-10-13] MEDS: VERAPAMIL SR 180 MG TABLET.ER PO SCH ×2 (07:53→21:41)
[2018-10-13] MEDS: GABAPENTIN 300 MG CAP PO SCH ×3 (07:53→21:41)
[2018-10-13] MEDS: FUROSEMIDE 20 MG TAB PO SCH ×2 (07:53→17:42)
[2018-10-13] MEDS: LISINOPRIL 20 MG TAB PO SCH (07:53)
[2018-10-13] MEDS: SERTRALINE 100 MG TAB PO SCH (07:54)
[2018-10-13] MEDS: POTASSIUM CHLORIDE ER 20 MEQ TAB.ER PO SCH (07:54)
[2018-10-13] MEDS: CLOTRIMAZOLE/BETAMETH 1-0.05% CREAM 45 GM TUBE TOPICAL SCH ×2 (07:55→21:41)
[2018-10-13 09:05] LABS: INR 1.6 (<1.2)
[2018-10-13] MEDS: MULTIVITAMINS, THERA 1 EACH TAB PO SCH (13:50)
--- NOTE | 2018-10-13 17:14 | PN ---
PROGRESS NOTE DATE OF SERVICE: 10/13/2018. REASON FOR FOLLOWUP: Bilateral lower extremity cellulitis. INTERVAL HISTORY: The patient is currently afebrile. The patient is breathing comfortably. Denies having any chest pain, or any cough, no abdominal pain or any worsening pain in the leg area. Swelling and redness has decreased. PHYSICAL EXAMINATION: Blood pressure 148/66 with a pulse of 68, temperature 97.7. She is 92% on room air. General description is an elderly female lying in bed in no distress. Respiratory system: Unlabored breathing. Clear to auscultation anteriorly. Heart S1, S2 regular rate and rhythm. Abdomen soft, no tenderness. Leg swelling and redness has much improved. LAB: INR is 1.3. DIAGNOSTIC IMPRESSION AND PLAN: Patient with bilateral lower extremity cellulitis. The patient did have a multiple antibiotic allergies with diffuse swelling and redness, likely streptococcal disease currently doing well on clindamycin with plan to finish therapy with oral Clinda 300 p.o. q8 hours for another 5 days along with Lobo wraps to keep the swelling down. Advised to increase her yogurt intake. Family present at bedside. Questions were answered. MMODL / IJN: [id number] /
[2018-10-13] MEDS ORDERED: WARFARIN 3 MG TAB PO ONE (18:00)
--- NOTE | 2018-10-13 20:17 | PN ---
PROGRESS NOTE SUBJECTIVE: 73-year-old white female admitted with cellulitis, bilateral lower extremities responded to IV clindamycin. 24 hours clindamycin will be needed IV followed by oral clindamycin to go home. Otherwise, vital signs stable. Afebrile. Cardiovascular: S1, S2. Lungs clear. GI soft. Extremities show lymphedema type with anterior tibia redness bilaterally with lymphedema type changes improving. Possible discharge home on oral clindamycin tomorrow. MMODL / IJN: [id number] /
[2018-10-13] MEDS: MONTELUKAST 10 MG TAB PO SCH (21:41)
[2018-10-14] MEDS: CLINDAMYCIN 600 MG in DEXTROSE 5% IN WATER 50 ML IVPB SCH ×6 (00:28→15:53)
[2018-10-14] MEDS: SODIUM CHLORIDE 0.9% 1,000 ML IV SCH ×2 (05:24→08:33)
[2018-10-14] MEDS: LEVOTHYROXINE 125 MCG TAB PO SCH (06:15)
[2018-10-14] MEDS: FLUTICASONE 110 MCG INHALER INHALATION SCH ×2 (08:02→20:11)
[2018-10-14] MEDS: ATORVASTATIN 20 MG TAB PO SCH (08:36)
[2018-10-14] MEDS: POTASSIUM CHLORIDE ER 20 MEQ TAB.ER PO SCH (08:36)
[2018-10-14] MEDS: PANTOPRAZOLE 40 MG TABLET PO SCH (08:36)
[2018-10-14] MEDS: FUROSEMIDE 20 MG TAB PO SCH ×2 (08:36→15:53)
[2018-10-14] MEDS: SERTRALINE 100 MG TAB PO SCH (08:36)
[2018-10-14] MEDS: LISINOPRIL 20 MG TAB PO SCH (08:36)
[2018-10-14] MEDS: VERAPAMIL SR 180 MG TABLET.ER PO SCH ×2 (08:36→20:53)
[2018-10-14] MEDS: GABAPENTIN 300 MG CAP PO SCH ×3 (08:36→22:34)
[2018-10-14] MEDS: MULTIVITAMINS, THERA 1 EACH TAB PO SCH (11:53)
[2018-10-14 13:40] LABS: INR 2.8 (<1.2)
[2018-10-14] MEDS: CLOTRIMAZOLE/BETAMETH 1-0.05% CREAM 45 GM TUBE TOPICAL SCH ×2 (15:41→22:34)
[2018-10-14] MEDS ORDERED: WARFARIN 7.5 MG TAB PO ONE (18:00)
[2018-10-14] MEDS: MONTELUKAST 10 MG TAB PO SCH (20:53)
--- NOTE | 2018-10-14 22:25 | P.PN ---
Subjective Progress Note Date: 10/14/18 Principal diagnosis: Bilateral cellulitis of the lower extremity, severe morbid obesity, dyslipidemia, hypertension hypertensive cardiovascular disease, chronic persistent asthma intermittent Ammann mood disorder depression, 10/14/2018, patient seen eval examined during the rounds clinically patient has been doing well in terms of breathing both lower extremity have been wrapped with Lobo wrap swelling erythematous edema is stable, patient is being followed by vascular surgery as well as infectious disease services remains on IV clindamycin antibiotics are being adjusted due to history of ALLERGIES to multiple agents, PT/INR checked today is in well therapeutic range, dozing is being given as per PT/INR pending for tomorrow, patient is seen and evaluated examined while covering for Dr. Javad Carter Objective - Vital Signs Vital signs: Vital Signs Temp 97.3 F L 10/14/18 19:05 Pulse 72 10/14/18 19:05 Resp 16 10/14/18 19:05 BP 163/77 10/14/18 19:05 Pulse Ox 99 10/14/18 19:05 Intake & Output 10/14/18 10/14/18 10/15/18 06:59 18:59 06:59 Intake Total 800 1590 Balance 800 1590 Intake: Intake, IV Titration 800 Amount Clindamycin 600 mg In 50 Dextrose 5% in Water 50 ml @ 50 mls/hr IVPB Q8HR [facility] Rx#:[id number] Sodium Chloride 0.9% 1, 750 000 ml @ 75 mls/hr IV . [id number] [facility] Rx#:[id number] Oral 1590 Other: Voiding Method Toilet # Voids 1 2 1 - Constitutional General appearance: Present: morbidly obese, no acute distress - EENT Eyes: Present: anicteric sclerae, EOMI, poor dentition Ears: bilateral: normal - Neck Neck: Present: normal ROM Carotids: bilateral: upstroke normal Thyroid: bilateral: normal size - Respiratory Respiratory: bilateral: CTA - Cardiovascular Rhythm: regular Heart sounds: normal: S1, S2 - Gastrointestinal General gastrointestinal: Present: normal bowel sounds - Neurologic Neurologic Comment(s): Facial asymmetry has been noted as per patient's chronic Neurologic: Present: CNII-XII intact - Musculoskeletal Musculoskeletal: Present: gait normal, generalized weakness, strength equal bilaterally - Psychiatric Psychiatric: Present: A&O x's 3, appropriate affect, intact judgment & insight - Labs CBC & Chem 7: 10/09/18 08:40 10/09/18 08:40 Labs: Abnormal Lab Results - Last 24 Hours (Table) 10/14/18 Range/Units 13:20 PT 27.0 H (9.0-12.0) sec INR 2.8 H (<1.2) Microbiology - Last 24 Hours (Table) 10/09/18 08:40 Blood Culture - Preliminary Blood No Growth after 120 hours Assessment and Plan Assessment: Bilateral severe lower extremity cellulitis Severe morbid obesity Hypertension hypertensive cardiovascular disease Dyslipidemia Chronic atrial fibrillation on anticoagulation with Coumadin Chronic persistent intermittent asthma History of DVT/pulmonary embolism Degenerative joint disease osteoarthritis Hypothyroidism Plan: Continue anticoagulation aim INR between 2 and 3 Continue broad-spectrum antibiotics Wound care Continue home medications Increase activity as tolerated Other recommendations pending plan of care as per clinical response of the patient
--- NOTE | 2018-10-14 23:21 | PN ---
PROGRESS NOTE DATE OF SERVICE: 10/14/2018. REASON FOR FOLLOWUP: Bilateral lower extremity cellulitis. INTERVAL HISTORY: The patient is currently afebrile. The patient is breathing comfortably. Denies having any chest pain, any cough or abdominal pain, or any worsening pain to the leg area. PHYSICAL EXAMINATION: On admission, blood pressure 163/77 with a pulse of 72, temperature 97.3. She is 99% on room air. GENERAL DESCRIPTION: An elderly female up in the bed in no distress. RESPIRATORY SYSTEM: Unlabored breathing. Clear to auscultation anteriorly. HEART: S1, S2. Regular rate and rhythm. ABDOMEN: Soft. EXTREMITIES: Bilateral leg swelling decreased. DIAGNOSTIC IMPRESSION AND PLAN: Patient with bilateral extremity cellulitis, overall improvement with clindamycin because of her multiple antibiotic allergies. Continue for another 3 to 5 days duration to finish course of therapy. Continue with Lobo wrap to keep the swelling down. Continue supportive care. MMODL / IJN: [id number] /
[2018-10-15] MEDS: CLINDAMYCIN 600 MG in DEXTROSE 5% IN WATER 50 ML IVPB SCH ×8 (00:08→23:25)
[2018-10-15] MEDS: LEVOTHYROXINE 125 MCG TAB PO SCH (05:57)
[2018-10-15 08:07] LABS: INR 3.6 (<1.2); Prothrombin Time 34.2 sec (9.0-12.0)
[2018-10-15] MEDS: VERAPAMIL SR 180 MG TABLET.ER PO SCH ×2 (08:35→23:22)
[2018-10-15] MEDS: SERTRALINE 100 MG TAB PO SCH (08:35)
[2018-10-15] MEDS: PANTOPRAZOLE 40 MG TABLET PO SCH (08:35)
[2018-10-15] MEDS: LISINOPRIL 20 MG TAB PO SCH (08:35)
[2018-10-15] MEDS: ATORVASTATIN 20 MG TAB PO SCH (08:35)
[2018-10-15] MEDS: POTASSIUM CHLORIDE ER 20 MEQ TAB.ER PO SCH (08:35)
[2018-10-15] MEDS: GABAPENTIN 300 MG CAP PO SCH ×3 (08:35→23:22)
[2018-10-15] MEDS: FUROSEMIDE 20 MG TAB PO SCH ×2 (08:35→15:27)
[2018-10-15] MEDS: FLUTICASONE 110 MCG INHALER INHALATION SCH ×2 (08:58→21:36)
[2018-10-15] MEDS: CLOTRIMAZOLE/BETAMETH 1-0.05% CREAM 45 GM TUBE TOPICAL SCH ×2 (11:22→23:22)
[2018-10-15] MEDS: CALCITRIOL 0.25 MCG CAP PO SCH (14:01)
[2018-10-15] MEDS: MULTIVITAMINS, THERA 1 EACH TAB PO SCH (14:01)
[2018-10-15] MEDS: SODIUM CHLORIDE 0.9% 1,000 ML IV SCH (14:02)
--- NOTE | 2018-10-15 14:04 | PN ---
PROGRESS NOTE SUBJECTIVE: A 73-year-old white female, cellulitis of the lower extremities. Remains on IV clindamycin, possibly switch to oral clindamycin today and discharge in the morning. She has lymphadenopathy of significant nature, lymphedema at which time she will need Lobo wraps at home, which was explained to her. Her breathing is improved. No chest pain, shortness of breath. CARDIOVASCULAR: S1, S2. LUNGS: Clear. GI: Soft. INTEGUMENT: Shows Lobo wraps on the lower extremities with some mild erythema lower extremities. ASSESSMENT: Cellulitis bilateral lower extremities. Lymphedema. History of chronic obstructive pulmonary disease and asthma. Follow up in the next 24-48 hours for possible discharge. MMODL / IJN: [id number] /
--- NOTE | 2018-10-15 17:07 | PN ---
PROGRESS NOTE DATE OF SERVICE: 10/15/2018 REASON FOR FOLLOW UP: Bilateral lower extremity cellulitis. INTERVAL HISTORY: The patient is currently afebrile. The patient has been breathing comfortably. The patient denies having any chest pain or shortness of breath. No abdominal pain. Overall, the cellulitis of the legs has improved. PHYSICAL EXAMINATION: Blood pressure 115/67 with a pulse of 94, temperature 97.6. She is 98% on room air. General description is an elderly female up in the chair in no distress. Respiratory system: Unlabored breathing. Clear to auscultation anteriorly. Heart S1, S2. Regular rate and rhythm. Abdomen soft, no tenderness. Legs are currently wrapped. Overall, swelling and redness has improved at the time of dressing changes. DIAGNOSTIC IMPRESSION AND PLAN: Patient with bilateral lower extremity cellulitis with diffuse swelling, likely streptococcal disease. The patient is currently on clindamycin because of her multiple antibiotic allergies. Plan will be to finish therapy with oral clindamycin 300 mg 3 times a day for another 4 days to finish her 10 day course of therapy. Continue supportive care. MMODL / IJN: [id number] /
[2018-10-15] MEDS ORDERED: WARFARIN 0.5 MG TAB PO ONE (18:00)
[2018-10-15] MEDS: MONTELUKAST 10 MG TAB PO SCH (23:22)
[2018-10-16] MEDS: SODIUM CHLORIDE 0.9% 1,000 ML IV SCH ×2 (01:43→12:43)
[2018-10-16] MEDS: LEVOTHYROXINE 125 MCG TAB PO SCH (05:43)
[2018-10-16 08:12] LABS: INR 3.1 (<1.2); Prothrombin Time 29.9 sec (9.0-12.0)
[2018-10-16] MEDS: ATORVASTATIN 20 MG TAB PO SCH (09:31)
[2018-10-16] MEDS: SERTRALINE 100 MG TAB PO SCH (09:31)
[2018-10-16] MEDS: GABAPENTIN 300 MG CAP PO SCH ×3 (09:31→21:05)
[2018-10-16] MEDS: VERAPAMIL SR 180 MG TABLET.ER PO SCH ×2 (09:31→21:05)
[2018-10-16] MEDS: POTASSIUM CHLORIDE ER 20 MEQ TAB.ER PO SCH (09:31)
[2018-10-16] MEDS: CLINDAMYCIN 150 MG CAP PO SCH ×3 (09:31→21:05)
[2018-10-16] MEDS: FUROSEMIDE 20 MG TAB PO SCH ×2 (09:32→17:50)
[2018-10-16] MEDS: LISINOPRIL 20 MG TAB PO SCH (09:32)
[2018-10-16] MEDS: CLOTRIMAZOLE/BETAMETH 1-0.05% CREAM 45 GM TUBE TOPICAL SCH ×2 (09:32→21:05)
[2018-10-16] MEDS: PANTOPRAZOLE 40 MG TABLET PO SCH (09:32)
[2018-10-16] MEDS: FLUTICASONE 110 MCG INHALER INHALATION SCH ×2 (10:49→20:07)
[2018-10-16] MEDS: MULTIVITAMINS, THERA 1 EACH TAB PO SCH (12:43)
[2018-10-16 13:10] VITALS: BMI 38.6
[2018-10-16] MEDS ORDERED: WARFARIN 5 MG TAB PO ONE (18:00)
[2018-10-16] MEDS: MONTELUKAST 10 MG TAB PO SCH (21:05)
[2018-10-16] MEDS: ARTIFICIAL TEARS-HYPROMELLOSE DROPS 15 ML BTL BOTH EYES PRN (21:05)
[2018-10-17] MEDS: LEVOTHYROXINE 125 MCG TAB PO SCH (06:47)
--- NOTE | 2018-10-17 07:12 | PN ---
PROGRESS NOTE SUBJECTIVE: This is a white female with lymphadenitis on IV clindamycin. Possible discharge home tomorrow. She is unable to go to a rehab facility due to apparently insurance not approving her. Vital signs reviewed. CARDIOVASCULAR: S1, S2. LUNGS: Clear. PSYCH: Anxious, nervous. INTEGUMENT: Shows lymphedema-type changes in lower extremities with redness in anterior tibia. ASSESSMENT: Lymphadenitis, cellulitis, bilateral lower extremities. Continue on clindamycin 300 t.i.d. and follow up in next 24 to 48 hours. Possible discharge. She will go home as she cannot make it to the rehab center depending on insurance at this time. MMODL / IJN: [id number] /
[2018-10-17 07:51] VITALS: RESP 16; TEMP 97.9
[2018-10-17] MEDS: FLUTICASONE 110 MCG INHALER INHALATION SCH (08:08)
[2018-10-17 08:15] LABS: Prothrombin Time 19.6 sec (9.0-12.0)
[2018-10-17] MEDS: ARTIFICIAL TEARS-HYPROMELLOSE DROPS 15 ML BTL BOTH EYES PRN (09:43)
[2018-10-17] MEDS: LISINOPRIL 20 MG TAB PO SCH (09:44)
[2018-10-17] MEDS: GABAPENTIN 300 MG CAP PO SCH ×2 (09:44→15:42)
[2018-10-17] MEDS: POTASSIUM CHLORIDE ER 20 MEQ TAB.ER PO SCH (09:44)
[2018-10-17] MEDS: FUROSEMIDE 20 MG TAB PO SCH ×2 (09:44→15:42)
[2018-10-17] MEDS: SERTRALINE 100 MG TAB PO SCH (09:44)
[2018-10-17] MEDS: ATORVASTATIN 20 MG TAB PO SCH (09:44)
[2018-10-17] MEDS: VERAPAMIL SR 180 MG TABLET.ER PO SCH (09:44)
[2018-10-17] MEDS: CLOTRIMAZOLE/BETAMETH 1-0.05% CREAM 45 GM TUBE TOPICAL SCH (09:45)
[2018-10-17] MEDS: PANTOPRAZOLE 40 MG TABLET PO SCH (09:45)
[2018-10-17] MEDS: CLINDAMYCIN 150 MG CAP PO SCH ×2 (09:45→15:42)
[2018-10-17] MEDS: CALCITRIOL 0.25 MCG CAP PO SCH (13:00)
[2018-10-17] MEDS: MULTIVITAMINS, THERA 1 EACH TAB PO SCH (13:00)
--- NOTE | 2018-10-17 14:45 | PN ---
PROGRESS NOTE DATE OF SERVICE: 10/17/2018 REASON FOR FOLLOWUP: Bilateral lower extremity cellulitis. INTERVAL HISTORY: The patient is currently afebrile. The patient is breathing comfortably. Denies having any chest pain. No abdominal pain. Did have swelling of the legs but the redness has resolved. PHYSICAL EXAMINATION: Blood pressure 120/76 with pulse of 65, temperature 97.9. She is 98% on room air. General description is an elderly female, up in the chair in no distress. RESPIRATORY SYSTEM: Unlabored breathing, clear to auscultation anteriorly. HEART: S1, S2. Regular rate and rhythm. ABDOMEN: Soft, no tenderness. LABS: No new labs been obtained except the INR which is therapeutic. DIAGNOSTIC IMPRESSION AND PLAN: Patient with bilateral lower extremity cellulitis. Underlying cellulitis has been adequately treated. She received about 7 days of antibiotics that should be more than enough. Recommended noon discharge. Continue Lobo to the left to keep the swelling down. Continue supportive care. MMODL / IJN: [id number] /
[2018-10-17 15:35] VITALS: BP 101/48; PULSE 72
[2018-10-17] MEDS ORDERED: WARFARIN 10 MG TAB PO ONE (18:00)
--- NOTE | 2018-10-19 12:23 | DS ---
DISCHARGE SUMMARY DISCHARGE MEDICATIONS: 1. Zoloft 200 mg daily. 2. Synthroid 250 daily. 3. Lasix 20 mg daily. 4. Coumadin 10 mg daily. 5. Crestor 10 mg daily. 6. Xanax 0.25 b.i.d. 7. Fosamax 70 mg weekly. 8. Neurontin 300 t.i.d. 9. Potassium chloride 20 mEq daily. 10.Vasotec 10 mg daily. 11.Ventolin q.i.d. 12.Singulair 10 mg daily. 13.Prevacid 30 mg daily. 14. 180 b.i.d. 15.Fexofenadine 180 daily. 16.Lotrisone cream b.i.d. CONDITION: Stable. PROGNOSIS: Guarded. HOSPITAL COURSE OF EVENTS: This is a white female who was admitted with cellulitis of the lower extremities and lymphedema type changes. Given IV antibiotics for multiple days at which patient stabilized, she was switched to oral antibiotics and discharged home after being cleared by Infectious Disease. Vascular saw her for lymphedema and cleared her from their standpoint. The patient was stable on discharge. Follow up as an outpatient. MMODL / IJN: [id number] /
== END 2018-10-17 18:10 | disposition home or self-care (01) | DRG 603 ==
LOC: EC 17:33 → 4SSUR 19:33
PROVIDERS: ADMIT Family Medicine; ATTEND Family Medicine
DX: L03.115 Cellulitis of right lower limb (principal); L03.116 Cellulitis of left lower limb; E03.9 Hypothyroidism, unspecified; E66.01 Morbid (severe) obesity due to excess calories; E78.5 Hyperlipidemia, unspecified; Z68.37 Body mass index [BMI] 37.0-37.9, adult; F32.9 Major depressive disorder, single episode, unspecified; I11.9 Hypertensive heart disease without heart failure; I48.2 Chronic atrial fibrillation; I88.9 Nonspecific lymphadenitis, unspecified; I89.0 Lymphedema, not elsewhere classified; J44.9 Chronic obstructive pulmonary disease, unspecified; J45.20 Mild intermittent asthma, uncomplicated; K21.9 Gastro-esophageal reflux disease without esophagitis; M19.90 Unspecified osteoarthritis, unspecified site; Z79.01 Long term (current) use of anticoagulants; Z79.51 Long term (current) use of inhaled steroids; Z79.83 Long term (current) use of bisphosphonates; Z79.890 Hormone replacement therapy; Z82.49 Family history of ischemic heart disease and other diseases of the circulatory system; Z86.14 Personal history of Methicillin resistant Staphylococcus aureus infection; Z86.711 Personal history of pulmonary embolism; Z86.718 Personal history of other venous thrombosis and embolism; Z88.1 Allergy status to other antibiotic agents; Z79.899 Other long term (current) drug therapy; Z88.6 Allergy status to analgesic agent; Z91.030 Bee allergy status; Z91.041 Radiographic dye allergy status; Z88.8 Allergy status to other drugs, medicaments and biological substances; Z91.018 Allergy to other foods
CPT/HCPCS: 36415; 80053; 83605; 85025; 85610; 85652; 85730; 86140; 87040; 93970; 94640; 96361; 96365; 99284

== ENCOUNTER 2021-03-01 06:58 | Inpatient (IN) | payer MEDICARE ==
[2021-03-01] MEDS ORDERED: PIPERACILLIN-TAZOBACTAM 3.375 GM in SODIUM CHLORIDE 0.9% 100 ML IVPB STA (07:25)
[2021-03-01] MEDS ORDERED: ACETAMINOPHEN SUPPOSITORY 650 MG SUPP RECTAL STA (07:26)
[2021-03-01] MEDS ORDERED: IBUPROFEN IV 800 MG in SODIUM CHLORIDE 0.9% 250 ML IV ONE (07:26)
--- NOTE | 2021-03-01 07:31 | ED ---
General Adult HPI - General Chief complaint: Altered Mental Status Stated complaint: Altered Mental Status Time Seen by Provider: 03/01/21 07:00 Source: family, EMS, RN notes reviewed, old records reviewed Mode of arrival: EMS Limitations: altered mental status - History of Present Illness Initial comments: This is a 75-year-old female who presents emergency Department with altered mental status. states he last saw her last night when she went to bed before him at 10:00 and when he woke up this morning she wasn't talking and she was just staring behind. states she has not had cold and she did not get difficulty relaxing. states she is on blood thinners for blood clots in the past. is a very poor historian patient herself cannot give any history. According to EMS she's had previous stroke and she has some left- sided residual deficit. EMS stated she did have a fever. There's been no history of any recent cough or complaints by the patient per the . No further history is available this time - Related Data Home Medications Medication Instructions Recorded Confirmed ALPRAZolam [Xanax] 0.25 mg PO BID PRN 08/24/18 03/01/21 Albuterol Sulfate [Proventil Hfa] 2 puff INHALATION RT-Q4H PRN 08/24/18 03/01/21 Ergocalciferol (Vitamin D2) 50,000 unit PO FR@79908/24/18 03/01/21 [Drisdol] Furosemide [Lasix] 20 mg PO BID@799,199908/24/18 03/01/21 Gabapentin [Neurontin] 300 mg PO TID@0700,1500,2300 08/24/18 03/01/21 Levothyroxine Sodium [Synthroid] 250 mcg PO HS@199908/24/18 03/01/21 Methocarbamol [Robaxin-750] 750 mg PO TID@0700,1500,2300 08/24/18 03/01/21 Montelukast [Singulair] 10 mg PO HS@199908/24/18 03/01/21 Multivitamins, Thera [Multivitamin 1 tab PO DAILY@79908/24/18 03/01/21 (formulary)] Potassium Chloride [K-Tab ER] 20 meq PO MOTUWETHFR@79908/24/18 03/01/21 Sertraline HCl [Zoloft] 200 mg PO HS@199908/24/18 03/01/21 Fexofenadine HCl [Jamia Allergy] 180 mg PO DAILY@79910/05/18 03/01/21 Verapamil Sr [Isoptin Sr] 180 mg PO BID@08,199910/05/18 03/01/21 Aspirin EC [Ecotrin Low Dose] 81 mg PO DAILY@79903/01/21 03/01/21 Atorvastatin [Lipitor] 20 mg PO HS@199903/01/21 03/01/21 Enalapril [Vasotec] 20 mg PO DAILY@79903/01/21 03/01/21 Fluticasone Propionate [Flovent 1 puff INHALATION RT-BID@799,199903/01/21 03/01/21 Hfa 110 mcg] Omeprazole [PriLOSEC] 20 mg PO DAILY@79903/01/21 03/01/21 Allergies Allergy/AdvReac Type Severity Reaction Status Date / Time acetylcysteine Allergy Rash/Hives Verified 03/01/21 07:53 [From Mucomyst] aspirin [From Soma Compound] Allergy Rash/Hives Verified 03/01/21 07:53 astemizole [From Hismanal] Allergy Rash/Hives Verified 03/01/21 07:53 bee pollen Allergy Anaphylaxis Verified 03/01/21 07:53 calcium carbonate Allergy Anaphylaxis Verified 03/01/21 07:53 [From Os-Spencer] carisoprodol Allergy Rash/Hives Verified 03/01/21 07:53 [From Soma Compound] cephalexin [From Keflex] Allergy Rash/Hives Verified 03/01/21 07:53 cigarette smoke Allergy Rash/Hives Verified 03/01/21 07:53 cromolyn Allergy Rash/Hives Verified 03/01/21 07:53 erythromycin base Allergy Rash/Hives Verified 03/01/21 07:53 estrogens, conjugated Allergy Anaphylaxis Verified 03/01/21 07:53 [From Prempro] hydrochlorothiazide Allergy Anaphylaxis Verified 03/01/21 07:53 [From Dyazide] isoetharine [From Bronkosol] Allergy Rash/Hives Verified 03/01/21 07:53 medroxyprogesterone Allergy Anaphylaxis Verified 03/01/21 07:53 [From Prempro] meperidine [From Demerol] Allergy Rash/Hives Verified 03/01/21 07:53 metoclopramide [From Reglan] Allergy Anaphylaxis Verified 03/01/21 07:53 metoprolol [From Toprol XL] Allergy Anaphylaxis Verified 03/01/21 07:53 mold Allergy Rash/Hives Verified 03/01/21 07:53 naproxen [From Anaprox] Allergy Anaphylaxis Verified 03/01/21 07:53 perindopril [From Aceon] Allergy Anaphylaxis Verified 03/01/21 07:53 promethazine [From Phenergan] Allergy Rash/Hives Verified 03/01/21 07:53 ragweed pollen Allergy Rash/Hives Verified 03/01/21 07:53 spironolactone Allergy Anaphylaxis Verified 03/01/21 07:53 [From Aldactone] triamterene [From Dyazide] Allergy Anaphylaxis Verified 03/01/21 07:53 radiology dye Allergy Anaphylaxis Uncoded 03/01/21 07:53 tb serum Allergy Unknown Uncoded 03/01/21 07:53 Review of Systems ROS Statement: Those systems with pertinent positive or pertinent negative responses have been documented in the HPI. ROS Other: All systems not noted in ROS Statement are negative. Past Medical History Past Medical History: Atrial Fibrillation, Asthma, Heart Failure, Deep Vein Thrombosis (DVT), GERD/Reflux, Hyperlipidemia, Hypertension, Osteoarthritis (OA), Pulmonary Embolus (PE), Renal Disease, Thyroid Disorder Additional Past Medical History / Comment(s): MIGRAINE HEADACHE, RIGHT LEG-DVT History of Any Multi-Drug Resistant Organisms: MRSA Date of last positivie culture/infection: 2008 MDRO Source:: LEFT KNEE Past Surgical History: Appendectomy, Cholecystectomy, Tonsillectomy Additional Past Surgical History / Comment(s): D&C, Past Anesthesia/Blood Transfusion Reactions: No Reported Reaction Past Psychological History: No Psychological Hx Reported, Anxiety, Depression Smoking Status: Never smoker Past Alcohol Use History: None Reported Past Drug Use History: None Reported - Past Family History Mother Family Medical History: No Reported History Father Family Medical History: Hypertension General Exam - General Exam Comments Initial Comments: GENERAL: Patient is well-developed and well-nourished. Patient is nontoxic and well- hydrated and is in mild distress. Pulse ox was initially in the 80s. Patient does not wear oxygen at home. ENT: Neck is soft and supple. No significant lymphadenopathy is noted. Oropharynx is clear. Moist mucous membranes. Neck has full range of motion without eliciting any pain. EYES: The sclera were anicteric and conjunctiva were pink and moist. Extraocular movements were intact and pupils were equal round and reactive to light. Eyelids were unremarkable. PULMONARY: Unlabored respirations. Good breath sounds bilaterally. No audible rales rhonchi or wheezing was noted. CARDIOVASCULAR: There is a regular rate and rhythm without any murmurs gallops or rubs. ABDOMEN: Soft and nontender with normal bowel sounds. SKIN: Skin is clear with no lesions or rashes and otherwise unremarkable. NEUROLOGIC: Patient is alert and oriented 0. Patient is not following any commands. Difficult to do the rest of her neurological assessment however she is able to move all 4 extremities to some degree but cannot assess strength or sensation MUSCULOSKELETAL: Normal extremities with adequate strength and full range of motion. No lower extremity swelling or edema. No calf tenderness. LYMPHATICS: No significant lymphadenopathy is noted PSYCHIATRIC: Unable secondary to altered mental status Limitations: altered mental status Course Vital Signs 03/01/21 03/01/21 03/01/21 07:01 08:16 09:00 Temperature 100.4 F H 98.8 F Pulse Rate 100 98 92 Respiratory 28 H 18 18 Rate Blood Pressure 125/83 117/69 109/67 O2 Sat by Pulse 94 L 98 97 Oximetry Medical Decision Making - Medical Decision Making EKG shows normal sinus rhythm at 100 bpm ME interval 214 QRS is 86 QT interval 348 QTC is 448. Patient's EKG shows no ST segment elevation. CT of the brain shows no acute abnormality. Chest x-ray shows no acute abnormality. Patient has a fever and the white count I have no source of infection at this time I will start the patient on Zosyn and gave one dose in the emergency department. Patient is dehydrated I give the patient more fluid. I spoke with the depression agreed to admit the patient admitted the patient wrote admitting orders. - Lab Data Result diagrams: 03/01/21 07:25 03/01/21 07:25 Lab Results 03/01/21 03/01/21 03/01/21 Range/Units 07:25 07:25 07:25 WBC 16.8 H (3.8-10.6) k/uL RBC 5.48 H (3.80-5.40) m/uL Hgb 16.5 H (11.4-16.0) gm/dL Hct 49.4 H (34.0-46.0) % MCV 90.1 (80.0-100.0) fL MCH 30.0 (25.0-35.0) pg MCHC 33.3 (31.0-37.0) g/dL RDW 14.2 (11.5-15.5) % Plt Count 161 (150-450) k/uL MPV 10.8 Neutrophils % (Manual) 46 % Band Neuts % (Manual) 1 % Lymphocytes % (Manual) 44 % Monocytes % (Manual) 10 % Neutrophils # (Manual) 7.80 H (1.3-7.7) k/uL Lymphocytes # (Manual) 7.39 H (1.0-4.8) k/uL Monocytes # (Manual) 1.68 H (0-1.0) k/uL Nucleated RBCs 0 (0-0) /100 WBC Manual Slide Review Performed RBC Morphology Normal Sodium 153 H (137-145) mmol/L Potassium 4.1 (3.5-5.1) mmol/L Chloride 120 H (98-107) mmol/L Carbon Dioxide 20 L (22-30) mmol/L Anion Gap 13 mmol/L BUN 103 H* (7-17) mg/dL Creatinine 2.00 H (0.52-1.04) mg/dL Est GFR (CKD-EPI)AfAm 28 (>60 ml/min/1.73 sqM) Est GFR (CKD-EPI)NonAf 24 (>60 ml/min/1.73 sqM) Glucose 132 H (74-99) mg/dL Plasma Lactic Acid Armond (0.7-2.0) mmol/L Calcium 9.3 (8.4-10.2) mg/dL Total Bilirubin 0.8 (0.2-1.3) mg/dL AST 29 (14-36) U/L ALT 23 (4-34) U/L Alkaline Phosphatase 38 (38-126) U/L Troponin I (0.000-0.034) ng/mL Total Protein 7.3 (6.3-8.2) g/dL Albumin 3.8 (3.5-5.0) g/dL Urine Color Yellow Urine Appearance Clear (Clear) Urine pH 5.5 (5.0-8.0) Ur Specific [place] 1.018 (1.001-1.035) Urine Protein Trace H (Negative) Urine Glucose (UA) Negative (Negative) Urine Ketones Negative (Negative) Urine Blood Negative (Negative) Urine Nitrite Negative (Negative) Urine Bilirubin Negative (Negative) Urine Urobilinogen <2.0 (<2.0) mg/dL Ur Leukocyte Esterase Negative (Negative) Coronavirus (PCR) (Not Detectd) 03/01/21 03/01/21 03/01/21 Range/Units 07:25 07:25 07:31 WBC (3.8-10.6) k/uL RBC (3.80-5.40) m/uL Hgb (11.4-16.0) gm/dL Hct (34.0-46.0) % MCV (80.0-100.0) fL MCH (25.0-35.0) pg MCHC (31.0-37.0) g/dL RDW (11.5-15.5) % Plt Count (150-450) k/uL MPV Neutrophils % (Manual) % Band Neuts % (Manual) % Lymphocytes % (Manual) % Monocytes % (Manual) % Neutrophils # (Manual) (1.3-7.7) k/uL Lymphocytes # (Manual) (1.0-4.8) k/uL Monocytes # (Manual) (0-1.0) k/uL Nucleated RBCs (0-0) /100 WBC Manual Slide Review RBC Morphology Sodium (137-145) mmol/L Potassium (3.5-5.1) mmol/L Chloride (98-107) mmol/L Carbon Dioxide (22-30) mmol/L Anion Gap mmol/L BUN (7-17) mg/dL Creatinine (0.52-1.04) mg/dL Est GFR (CKD-EPI)AfAm (>60 ml/min/1.73 sqM) Est GFR (CKD-EPI)NonAf (>60 ml/min/1.73 sqM) Glucose (74-99) mg/dL Plasma Lactic Acid Armond 1.6 (0.7-2.0) mmol/L Calcium (8.4-10.2) mg/dL Total Bilirubin (0.2-1.3) mg/dL AST (14-36) U/L ALT (4-34) U/L Alkaline Phosphatase (38-126) U/L Troponin I 0.646 H* (0.000-0.034) ng/mL Total Protein (6.3-8.2) g/dL Albumin (3.5-5.0) g/dL Urine Color Urine Appearance (Clear) Urine pH (5.0-8.0) Ur Specific [place] (1.001-1.035) Urine Protein (Negative) Urine Glucose (UA) (Negative) Urine Ketones (Negative) Urine Blood (Negative) Urine Nitrite (Negative) Urine Bilirubin (Negative) Urine Urobilinogen (<2.0) mg/dL Ur Leukocyte Esterase (Negative) Coronavirus (PCR) Not Detected (Not Detectd) Disposition Clinical Impression: Altered mental status, Dehydration, Fever, unknown origin, Elevated troponin, Hypernatremia, Renal insufficiency Disposition: ADMITTED IP TO THIS HOSP Referrals: Tomás Hanks DO [Primary Care Provider] - 1-2 days Time of Disposition: 09:21
[2021-03-01 07:35] LABS: HCT 49.4 % (34.0-46.0); HGB 16.5 gm/dL (11.4-16.0); MCHC 33.3 g/dL (31.0-37.0); MCV 90.1 fL (80.0-100.0); Mean Platelet Volume 10.8; Platelet Count 161 k/uL (150-450); RBC 5.48 m/uL (3.80-5.40); RDW 14.2 % (11.5-15.5); WBC 16.8 k/uL (3.8-10.6)
[2021-03-01 07:44] LABS: Albumin 3.8 g/dL (3.5-5.0); Calcium 9.3 mg/dL (8.4-10.2); Potassium 4.1 mmol/L (3.5-5.1); Total Bilirubin 0.8 mg/dL (0.2-1.3); Total Protein 7.3 g/dL (6.3-8.2)
[2021-03-01 07:47] LABS: INR 1.4 (<1.2)
[2021-03-01 07:48] LABS: Partial Thromboplastin Time 26.4 sec (22.0-30.0); Prothrombin Time 14.5 sec (9.0-12.0)
[2021-03-01] MEDS: SODIUM CHLORIDE 0.9% 500 ML 500 ML IV SCH ×3 (08:08→08:58)
--- NOTE | 2021-03-01 08:12 | CT ---
EXAMINATION TYPE: CT brain wo con DATE OF EXAM: 03/01/2021 COMPARISON: None HISTORY: 75-year-old female confusion, Altered mental status TECHNIQUE: Examination was done in axial plane without intravenous contrast. Coronal and sagittal r econstructions performed. CT DLP: 1099.4 mGycm Automated exposure control for dose reduction was used. FINDINGS: There is no evidence of acute intracranial hemorrhage, acute ischemic changes, mass, mass-effect, or extra-axial fluid collection. There is no effacement of cerebral sulci or basal subarachnoid cister ns. Ventricular prominence with Regan's ratio calculated at 0.37. Moderate confluent white matter hypodens ities bilateral periventricular regions. Small hypodensity left basal ganglia. There is no midline shift. Hansen-white matter distinction is preserved. Paranasal sinuses and mastoid air cells well pneumatized. Orbits and globes are intact. IMPRESSION: 1. Mild ventriculomegaly with Regan's ratio of 0.37. There may be a component of central cerebral atro phy. Correlate to exclude NPH. 2. Moderate confluent burden of chronic small vessel ischemic disease. Old lacunar infarct left basal ganglia. No acute intracranial abnormality otherwise seen.
[2021-03-01 08:26] LABS: Band Neutrophils % 1 %; Lymphocytes # (M) 7.39 k/uL (1.0-4.8); Monocytes # (M) 1.68 k/uL (0-1.0); Neutrophils % (M) 46 %; Nucleated Red Blood Cells 0 /100 WBC (0-0); Total Cells Counted 200
[2021-03-01 08:49] LABS: Appearance,Urine Clear (Clear); Bilirubin,Urine Negative (Negative); Blood,Urine Negative (Negative); Color,Urine Yellow; Glucose,Urine (UA) Negative (Negative); Ketones,Urine Negative (Negative); Leukocyte Esterase,Urine Negative (Negative); Nitrite,Urine Negative (Negative); PH, Urine 5.5 (5.0-8.0); Protein,Urine Trace (Negative); Specific Gravity,Urine 1.018 (1.001-1.035); Urobilinogen,Urine <2.0 mg/dL (<2.0)
--- NOTE | 2021-03-01 08:50 | XR ---
EXAMINATION TYPE: XR chest 2V DATE OF EXAM: 03/01/2021 COMPARISON: None HISTORY: 75-year-old female fever, altered mental status TECHNIQUE: AP and lateral views FINDINGS: Heart upper limits of normal in size. Some strandy areas of atelectasis mid and lower lungs. No francisco j consolidation or pleural effusion. ACDF hardware. Old healed left-sided rib fracture deformities. IMPRESSION: Some strandy areas of atelectasis. Old healed left-sided rib fracture deformities. No definite acute process.
[2021-03-01] MEDS ORDERED: SODIUM CHLORIDE 0.9% 1,000 ML IV SCH (09:45)
[2021-03-01] MEDS ORDERED: ALBUTEROL NEBULIZED 2.5 MG/3 ML INHALATION PRN (12:38)
[2021-03-01] MEDS: DEXTROSE 5%-0.45% NACL 1,000 ML IV SCH ×2 (13:00→20:17)
[2021-03-01] MEDS: methocarbamoL 750 MG TAB PO SCH ×2 (14:15→23:11)
[2021-03-01] MEDS: PIPERACILLIN-TAZOBACTAM 3.375 GM in SODIUM CHLORIDE 0.9% 100 ML IVPB SCH ×2 (14:20→23:12)
[2021-03-01] MEDS: ACETAMINOPHEN TAB 500 MG TAB PO PRN (15:34)
[2021-03-01] MEDS: ATORVASTATIN 20 MG TAB PO SCH (20:05)
[2021-03-01] MEDS: LEVOTHYROXINE 125 MCG TAB PO SCH (20:05)
[2021-03-01] MEDS: SERTRALINE 100 MG TAB PO SCH (20:06)
[2021-03-01] MEDS: MONTELUKAST 10 MG TAB PO SCH (20:06)
[2021-03-01] MEDS: VERAPAMIL SR 180 MG TABLET.ER PO SCH (20:24)
--- NOTE | 2021-03-01 23:02 | P.HPIM ---
History of Present Illness H&P Date: 03/01/21 Chief Complaint: Not talking History of presenting complaint: This is a 75-year-old patient who follows with Dr. Tomás Rios. Patient is a resident of assisted living [facility]. Patient was found by the staff this morning to be unresponsive. Patient was last seen normal before she went to bed. Around 9 PM previous night. No complaints. Patient does have a hist ory of CVA with left-sided deficits and facial droop. As per the EMS patient was responding to painful stimuli but otherwise not alert. Patient had a fixed gaze forward and will not track with her eyes. She was making some non-painful speech. Her pulse was noted to be a bit rapid and strong palpation. Patient's put on nasal cannula. EKG showed sinus tachycardia. IV access was done. Patient herself is not able to give me any history. Could only speak her name. Review of systems cannot be obtained as patient not able to talk Past medical history to include: Atrial fibrillation, asthma, CHF, DVT, GERD, hyperlipidemia, hypertension, osteoarthritis, PE, hypothyroid, Social history: Lives at [facility]. Assisted living. No history of smoking or alcohol Family history: Patient cannot tell Physical examination: VITAL SIGNS: 97, 83, 22, 158/64, 98% on 3 L GENERAL: BMI 31.4, laying in bed, tired. EYES: Pupils equal. Conjunctiva normal. HEENT: External appearance of nose and ears normal, oral cavity grossly normal. NECK: JVD unable to assess; masses not palpable. HEART: First and second heart sounds are normal; no edema. LUNGS: Respiratory rate normal; clear to auscultation. ABDOMEN: Soft, nontender, liver spleen not palpable, no masses palpable. PSYCH: Patient can only tell her namel. NEUROLOGICAL: Facial asymmetry with mild slightly poor to the right. Increase left palpebral fissure. Left arm contracture.. LYMPHATICS: No lymph nodes palpable in the axilla and neck INVESTIGATIONS, reviewed in the clinical context: White count 16.8 hemoglobin 16.5 platelets 161 sodium 153 potassium 4.1 BUN 103 creatinine 2.0 bicarbonate 20 Troponin I 0.646, 0.593 UA showing trace protein Coronavirus [PCR]: Not detected EKG tracing personally reviewed by me-normal sinus rhythm. Rate of 100 Chest x-ray film personally reviewed by me-some chronic patches Computed tomography scan of the brain: Central cerebral atrophy. Chronic small vessel ischemic disease. Need to exclude NPH Assessment and plan -Patient presented acute mental status changes. In the setting of hypernatremia and acute kidney injury. This could be an acute stroke and/or acute metabolic encephalopathy. Neuro checks. PTOT consultation. Speech evaluation. Aspirin. Lipitor. -Paroxysmal atrial fibrillation. Currently sinus rhythm Telemetry -Hypernatremia from free water deficit. Give IV fluids D5.45 at 1 30 mL an hour. Repeat labs -Acute kidney injury, likely prerenal from poor oral intake. IV fluids. Repeat labs -Acute metabolic acidosis from any failure 8 bicarbonate the morning. -Hypothyroid Continue Synthroid -Essential hypertension Continue with Verapamil SR 180 mg twice a day -Hyperlipidemia Continue with Lipitor -DO NOT RESUSCITATE Neuro checks. PTOT. Speech consultation. Carotid Doppler. 2-D echo. Consult neurology. EEG. Given the complexity and severity of patient's condition expect the patient to be in the hospital at least for 2 overnights Past Medical History Past Medical History: Atrial Fibrillation, Asthma, Heart Failure, Deep Vein Thrombosis (DVT), GERD/Reflux, Hyperlipidemia, Hypertension, Osteoarthritis (OA), Pulmonary Embolus (PE), Renal Disease, Thyroid Disorder Additional Past Medical History / Comment(s): MIGRAINE HEADACHE, RIGHT LEG-DVT History of Any Multi-Drug Resistant Organisms: MRSA Date of last positivie culture/infection: 2008 MDRO Source:: LEFT KNEE Past Surgical History: Appendectomy, Cholecystectomy, Tonsillectomy Additional Past Surgical History / Comment(s): D&C, Past Anesthesia/Blood Transfusion Reactions: No Reported Reaction Past Psychological History: No Psychological Hx Reported, Anxiety, Depression Smoking Status: Never smoker Past Alcohol Use History: None Reported Past Drug Use History: None Reported - Past Family History Mother Family Medical History: No Reported History Father Family Medical History: Hypertension Medications and Allergies Home Medications Medication Instructions Recorded Confirmed Type ALPRAZolam [Xanax] 0.25 mg PO BID PRN 08/24/18 03/01/21 History Albuterol Sulfate [Proventil Hfa] 2 puff INHALATION RT-Q4H PRN 08/24/18 03/01/21 History Ergocalciferol (Vitamin D2) 50,000 unit PO FR@0800 08/24/18 03/01/21 History [Drisdol] Furosemide [Lasix] 20 mg PO BID@08,199908/24/18 03/01/21 History Gabapentin [Neurontin] 300 mg PO TID@0700,1500,2300 08/24/18 03/01/21 History Levothyroxine Sodium [Synthroid] 250 mcg PO HS@199908/24/18 03/01/21 History Methocarbamol [Robaxin-750] 750 mg PO TID@0700,1500,2300 08/24/18 03/01/21 History Montelukast [Singulair] 10 mg PO HS@199908/24/18 03/01/21 History Multivitamins, Thera [Multivitamin 1 tab PO DAILY@79908/24/18 03/01/21 History (formulary)] Potassium Chloride [K-Tab ER] 20 meq PO MOTUWETHFR@79908/24/18 03/01/21 History Sertraline HCl [Zoloft] 200 mg PO HS@199908/24/18 03/01/21 History Fexofenadine HCl [Jamia Allergy] 180 mg PO DAILY@79910/05/18 03/01/21 History Verapamil Sr [Isoptin Sr] 180 mg PO BID@799,199910/05/18 03/01/21 History Aspirin EC [Ecotrin Low Dose] 81 mg PO DAILY@79903/01/21 03/01/21 History Atorvastatin [Lipitor] 20 mg PO HS@199903/01/21 03/01/21 History Enalapril [Vasotec] 20 mg PO DAILY@79903/01/21 03/01/21 History Fluticasone Propionate [Flovent 1 puff INHALATION RT-BID@799,199903/01/21 03/01/21 History Hfa 110 mcg] Omeprazole [PriLOSEC] 20 mg PO DAILY@79903/01/21 03/01/21 History Allergies Allergy/AdvReac Type Severity Reaction Status Date / Time acetylcysteine Allergy Rash/Hives Verified 03/01/21 07:53 [From Mucomyst] aspirin [From Soma Compound] Allergy Rash/Hives Verified 03/01/21 07:53 astemizole [From Hismanal] Allergy Rash/Hives Verified 03/01/21 07:53 bee pollen Allergy Anaphylaxis Verified 03/01/21 07:53 calcium carbonate Allergy Anaphylaxis Verified 03/01/21 07:53 [From Os-Spencer] carisoprodol Allergy Rash/Hives Verified 03/01/21 07:53 [From Soma Compound] cephalexin [From Keflex] Allergy Rash/Hives Verified 03/01/21 07:53 cigarette smoke Allergy Rash/Hives Verified 03/01/21 07:53 cromolyn Allergy Rash/Hives Verified 03/01/21 07:53 erythromycin base Allergy Rash/Hives Verified 03/01/21 07:53 estrogens, conjugated Allergy Anaphylaxis Verified 03/01/21 07:53 [From Prempro] hydrochlorothiazide Allergy Anaphylaxis Verified 03/01/21 07:53 [From Dyazide] isoetharine [From Bronkosol] Allergy Rash/Hives Verified 03/01/21 07:53 medroxyprogesterone Allergy Anaphylaxis Verified 03/01/21 07:53 [From Prempro] meperidine [From Demerol] Allergy Rash/Hives Verified 03/01/21 07:53 metoclopramide [From Reglan] Allergy Anaphylaxis Verified 03/01/21 07:53 metoprolol [From Toprol XL] Allergy Anaphylaxis Verified 03/01/21 07:53 mold Allergy Rash/Hives Verified 03/01/21 07:53 naproxen [From Anaprox] Allergy Anaphylaxis Verified 03/01/21 07:53 perindopril [From Aceon] Allergy Anaphylaxis Verified 03/01/21 07:53 promethazine [From Phenergan] Allergy Rash/Hives Verified 03/01/21 07:53 ragweed pollen Allergy Rash/Hives Verified 03/01/21 07:53 spironolactone Allergy Anaphylaxis Verified 03/01/21 07:53 [From Aldactone] triamterene [From Dyazide] Allergy Anaphylaxis Verified 03/01/21 07:53 radiology dye Allergy Anaphylaxis Uncoded 03/01/21 07:53 tb serum Allergy Unknown Uncoded 03/01/21 07:53 Physical Exam Vitals: Vital Signs Temp Pulse Pulse Resp BP BP Pulse Ox 03/01/21 20:00 98.3 F 80 20 124/59 98 03/01/21 15:14 99 F 67 16 118/71 94 L 03/01/21 13:06 83 22 08/02/21 12:00 97 F L 83 22 158/64 98 03/01/21 09:00 98.8 F 92 18 109/67 97 03/01/21 08:16 98 18 117/69 98 03/01/21 07:01 100.4 F H 100 28 H 125/83 94 L Intake and Output 03/01/21 03/01/21 03/01/21 06:59 14:59 22:59 Intake Total 20 Output Total 2 500 Balance -2 -480 Intake: Oral 20 Output: Urine 500 Stool 2 Other: Voiding Method Indwelling Catheter Indwelling Catheter Weight 85.593 kg Results CBC & Chem 7: 03/01/21 07:25 03/01/21 07:25 Labs: Abnormal Lab Results - Last 24 Hours (Table) 03/01/21 03/01/21 03/01/21 Range/Units 07:25 07:25 07:25 WBC 16.8 H (3.8-10.6) k/uL RBC 5.48 H (3.80-5.40) m/uL Hgb 16.5 H (11.4-16.0) gm/dL Hct 49.4 H (34.0-46.0) % Neutrophils # (Manual) 7.80 H (1.3-7.7) k/uL Lymphocytes # (Manual) 7.39 H (1.0-4.8) k/uL Monocytes # (Manual) 1.68 H (0-1.0) k/uL PT 14.5 H (9.0-12.0) sec INR 1.4 H (<1.2) Sodium (137-145) mmol/L Chloride (98-107) mmol/L Carbon Dioxide (22-30) mmol/L BUN (7-17) mg/dL Creatinine (0.52-1.04) mg/dL Glucose (74-99) mg/dL Troponin I (0.000-0.034) ng/mL Urine Protein Trace H (Negative) 03/01/21 03/01/21 03/01/21 Range/Units 07:25 07:25 10:27 WBC (3.8-10.6) k/uL RBC (3.80-5.40) m/uL Hgb (11.4-16.0) gm/dL Hct (34.0-46.0) % Neutrophils # (Manual) (1.3-7.7) k/uL Lymphocytes # (Manual) (1.0-4.8) k/uL Monocytes # (Manual) (0-1.0) k/uL PT (9.0-12.0) sec INR (<1.2) Sodium 153 H (137-145) mmol/L Chloride 120 H (98-107) mmol/L Carbon Dioxide 20 L (22-30) mmol/L BUN 103 H* (7-17) mg/dL Creatinine 2.00 H (0.52-1.04) mg/dL Glucose 132 H (74-99) mg/dL Troponin I 0.646 H* 0.593 H* (0.000-0.034) ng/mL Urine Protein (Negative)
--- NOTE | 2021-03-02 01:06 | US ---
EXAMINATION TYPE: US carotid duplex BILAT DATE OF EXAM: 03/02/2021 COMPARISON: NONE CLINICAL HISTORY: Left facial weakness. Altered mental status. Patient poor historian. Left facial we akness per order. EXAM MEASUREMENTS: RIGHT: Peak Systolic Velocity (PSV) cm/sec ----- Right CCA: 37.2 ----- Right ICA: 41.3 ----- Right ECA: 55.0 ICA/CCA ratio: 1.1 RIGHT: End Diastole cm/sec ----- Right CCA: 7.5 ----- Right ICA: 10.0 ----- Right ECA: 7.3 LEFT: Peak Systolic Velocity (PSV) cm/sec ----- Left CCA: 52.0 ----- Left ICA: 53.6 ----- Left ECA: 63.8 ICA/CCA ratio: 1.0 LEFT: End Diastole cm/sec ----- Left CCA: 11.9 ----- Left ICA: 10.9 ----- Left ECA: 10.4 VERTEBRALS (direction of flow): Right Vertebral: Antegrade Left Vertebral: Antegrade Rhythm: Normal Intimal thickening seen bilaterally. Minimal plaque seen within bilateral carotid bulbs. No elevated velocities at this time. IMPRESSION: There is antegrade flow in the vertebral arteries. The images and measurements suggest less than 20% stenosis in both internal carotid arteries. NASCET criteria was used in interpretation of this exam? Criteria for Assigning % of Stenosis / Diameter reduction (Estimation based on the indirect measurements of the internal carotid artery velocities (ICA PSV). 1. Normal (no stenosis)=ICA PSV < 125 cm/s: ratio < 2.0: ICA EDV<40 cm/s. 2. Less than 50% stenosis=ICA PSV < 125 cm/s: ratio < 2.0: ICA EDV<40 cm/s. 3. 50 to 69% stenosis=ICA PSV of 125 to 230 cm/s: ration 2.0 ? 4.0: ICA EDV 40-100 cm/s. 4. Greater than 70% stenosis to near occlusion= ICA PSV > 230 cm/s: ratio > 4.0: ICA EDV > 100 cm/s. 5. Near occlusion= ICA PSV velocities may be low or undetectable: variable ratio and ICA EDV. 6. Total occlusion=unable to detect flow.
[2021-03-02] MEDS: DEXTROSE 5%-0.45% NACL 1,000 ML IV SCH ×3 (03:09→20:34)
[2021-03-02] MEDS: methocarbamoL 750 MG TAB PO SCH ×2 (06:03→16:55)
[2021-03-02] MEDS: PIPERACILLIN-TAZOBACTAM 3.375 GM in SODIUM CHLORIDE 0.9% 100 ML IVPB SCH ×2 (08:13→16:55)
[2021-03-02] MEDS: MULTIVITAMINS, THERA 1 EACH TAB PO SCH (08:14)
[2021-03-02] MEDS: ASPIRIN 81 MG PO SCH (08:14)
[2021-03-02] MEDS: VERAPAMIL SR 180 MG TABLET.ER PO SCH ×2 (08:14→20:30)
[2021-03-02] MEDS: PANTOPRAZOLE 40 MG TABLET PO SCH (08:14)
[2021-03-02 08:22] LABS: Calcium 8.2 mg/dL (8.4-10.2); Potassium 3.2 mmol/L (3.5-5.1)
--- NOTE | 2021-03-02 09:43 | P.CRDCN ---
History of Present Illness History of present illness: HISTORY OF PRESENTING ILLNESS This is a pleasant 75-year-old female past medical history significant for CVA, hypertension, PE/DVT, dyslipidemia, chronic kidney disease and hypothy roidism. She does not follow in our office. She is confused at baseline and unable to given any prior history. Information is obtained from nursing staff and medical record. We have been asked to see in consultation for elevated troponin. She was brought to the hospital by her due to altered mental status. She was apparently seen normal Monday night and woke up confused and gazing off Monday morning. EKG on arrival revealed sinus mechanism with poor R- wave progression and conduction delay. Chest xray revealed strandy atelectasis and old healed left sided rib fracture. CT brain mild ventriculomegaly, central cerebral atrophy, moderate burden of chronic small vessel ischemia, old lacunar infarct and no acute intracranial abnormality noted. Carotid duplex reveals antegrade flow in the vertebral arteris with less than 20% stenosis bilaterally. Laboratory data reviewed, WBC 16.8, hgb 16.5, platelets 161, INR 1.4, sodium 147, potassium 3.2, creatinine on admission 2.0 repeat today 1.58 and troponin 0.646, 0.593 and 0.214. Currently daily cardiac medications include, verapamil 180 mg BID, lasix 20 mg BID, enalapril 20 mg daiy, atorvastatin 20 mg daily and aspirin 81 mg daily. Telemetry tracings reveal SR. REVIEW OF SYSTEMS At the time of my exam: She denies all complaints, however is confused at baseline PHYSICAL EXAMINATION Blood pressure 121/76 heart rate 72 afebrile and maintaining oxygen saturation on nasal cannula. CONSTITUTIONAL: No apparent distress. HEENT: Head is normocephalic. Pupils are equal, round. Sclerae anicteric. Mucous membranes of the mouth are moist. No JVD. No carotid bruit. CHEST EXAMINATION: Lungs are clear to auscultation. No chest wall tenderness is noted on palpation or with deep breathing. HEART EXAMINATION: Regular rate and rhythm. S1, S2 heard. Soft systolic ejection murmur at the base, no gallops or rub. ABDOMEN: Soft, nontender. Positive bowel sounds. EXTREMITIES: 2+ peripheral pulses, bilateral lower extremity non-pitting edema with appearance venous stasis and no calf tenderness. NEUROLOGIC EXAMINATION: Patient is awake and alert, confused at baseline, only replies "yes or no" ASSESSMENT Altered mental status Leukocytosis Hypernatremia Kidney injury Troponin elevation of unclear significance History of CVA Hypertension Dyslipidemia PLAN Obtain baseline 2D echocardiogram and doppler study to assess cardiac structure and function. Ongoing medical management. Continue aspirin and atorvastatin as previously ordered. Troponin elevation of unclear significance. She is denying anginal symptoms and has no EKG changes. Likely due to renal function. Regardless, medical management is recommended. Questionable history of afib documented in nursing history, however not on anti- coagulation and no prior documented Afib. Thank you kindly for this consultation. Nurse Practitioner note has been reviewed, I agree with a documented findings and plan of care. Patient was seen and examined. Past Medical History Past Medical History: Atrial Fibrillation, Asthma, Heart Failure, Deep Vein Thrombosis (DVT), GERD/Reflux, Hyperlipidemia, Hypertension, Osteoarthritis (OA), Pulmonary Embolus (PE), Renal Disease, Thyroid Disorder Additional Past Medical History / Comment(s): MIGRAINE HEADACHE, RIGHT LEG-DVT History of Any Multi-Drug Resistant Organisms: MRSA Date of last positivie culture/infection: 2008 MDRO Source:: LEFT KNEE Past Surgical History: Appendectomy, Cholecystectomy, Tonsillectomy Additional Past Surgical History / Comment(s): D&C, Past Anesthesia/Blood Transfusion Reactions: No Reported Reaction Past Psychological History: No Psychological Hx Reported, Anxiety, Depression Smoking Status: Never smoker Past Alcohol Use History: None Reported Past Drug Use History: None Reported - Past Family History Mother Family Medical History: No Reported History Father Family Medical History: Hypertension Medications and Allergies Home Medications Medication Instructions Recorded Confirmed Type ALPRAZolam [Xanax] 0.25 mg PO BID PRN 08/24/18 03/01/21 History Albuterol Sulfate [Proventil Hfa] 2 puff INHALATION RT-Q4H PRN 08/24/18 03/01/21 History Ergocalciferol (Vitamin D2) 50,000 unit PO FR@79908/24/18 03/01/21 History [Drisdol] Furosemide [Lasix] 20 mg PO BID@799,199908/24/18 03/01/21 History Gabapentin [Neurontin] 300 mg PO TID@0700,1500,2300 08/24/18 03/01/21 History Levothyroxine Sodium [Synthroid] 250 mcg PO HS@199908/24/18 03/01/21 History Methocarbamol [Robaxin-750] 750 mg PO TID@0700,1500,2300 08/24/18 03/01/21 H istory Montelukast [Singulair] 10 mg PO HS@199908/24/18 03/01/21 History Multivitamins, Thera [Multivitamin 1 tab PO DAILY@79908/24/18 03/01/21 History (formulary)] Potassium Chloride [K-Tab ER] 20 meq PO MOTUWETHFR@79908/24/18 03/01/21 History Sertraline HCl [Zoloft] 200 mg PO HS@199908/24/18 03/01/21 History Fexofenadine HCl [Jamia Allergy] 180 mg PO DAILY@79910/05/18 03/01/21 History Verapamil Sr [Isoptin Sr] 180 mg PO BID@799,199910/05/18 03/01/21 History Aspirin EC [Ecotrin Low Dose] 81 mg PO DAILY@79903/01/21 03/01/21 History Atorvastatin [Lipitor] 20 mg PO HS@199903/01/21 03/01/21 History Enalapril [Vasotec] 20 mg PO DAILY@79903/01/21 03/01/21 History Fluticasone Propionate [Flovent 1 puff INHALATION RT-BID@799,199903/01/21 03/01/21 History Hfa 110 mcg] Omeprazole [PriLOSEC] 20 mg PO DAILY@79903/01/21 03/01/21 History Allergies Allergy/AdvReac Type Severity Reaction Status Date / Time acetylcysteine Allergy Rash/Hives Verified 03/01/21 07:53 [From Mucomyst] aspirin [From Soma Compound] Allergy Rash/Hives Verified 03/01/21 07:53 astemizole [From Hismanal] Allergy Rash/Hives Verified 03/01/21 07:53 bee pollen Allergy Anaphylaxis Verified 03/01/21 07:53 calcium carbonate Allergy Anaphylaxis Verified 03/01/21 07:53 [From Os-Spencer] carisoprodol Allergy Rash/Hives Verified 03/01/21 07:53 [From Soma Compound] cephalexin [From Keflex] Allergy Rash/Hives Verified 03/01/21 07:53 cigarette smoke Allergy Rash/Hives Verified 03/01/21 07:53 cromolyn Allergy Rash/Hives Verified 03/01/21 07:53 erythromycin base Allergy Rash/Hives Verified 03/01/21 07:53 estrogens, conjugated Allergy Anaphylaxis Verified 03/01/21 07:53 [From Prempro] hydrochlorothiazide Allergy Anaphylaxis Verified 03/01/21 07:53 [From Dyazide] isoetharine [From Bronkosol] Allergy Rash/Hives Verified 03/01/21 07:53 medroxyprogesterone Allergy Anaphylaxis Verified 03/01/21 07:53 [From Prempro] meperidine [From Demerol] Allergy Rash/Hives Verified 03/01/21 07:53 metoclopramide [From Reglan] Allergy Anaphylaxis Verified 03/01/21 07:53 metoprolol [From Toprol XL] Allergy Anaphylaxis Verified 03/01/21 07:53 mold Allergy Rash/Hives Verified 03/01/21 07:53 naproxen [From Anaprox] Allergy Anaphylaxis Verified 03/01/21 07:53 perindopril [From Aceon] Allergy Anaphylaxis Verified 03/01/21 07:53 promethazine [From Phenergan] Allergy Rash/Hives Verified 03/01/21 07:53 ragweed pollen Allergy Rash/Hives Verified 03/01/21 07:53 spironolactone Allergy Anaphylaxis Verified 03/01/21 07:53 [From Aldactone] triamterene [From Dyazide] Allergy Anaphylaxis Verified 03/01/21 07:53 radiology dye Allergy Anaphylaxis Uncoded 03/01/21 07:53 tb serum Allergy Unknown Uncoded 03/01/21 07:53 Physical Exam Vitals: Vital Signs Temp Pulse Resp BP Pulse Ox 03/02/21 08:00 97.9 F 72 18 121/76 99 03/02/21 03:47 97.4 F L 74 18 145/67 99 03/02/21 00:00 97.6 F 76 18 125/63 99 03/01/21 20:00 98.3 F 80 20 124/59 98 03/01/21 15:14 99 F 67 16 118/71 94 L 03/01/21 13:06 83 22 03/01/21 12:00 97 F L 83 22 158/64 98 Intake and Output 03/01/21 03/02/21 03/02/21 22:59 06:59 14:59 Intake Total 20 Output Total 500 1050 Balance -480 -1050 Intake: Oral 20 Output: Urine 500 1050 Other: Voiding Method Indwelling Catheter Indwelling Catheter # Bowel Movements 1 Weight 94.5 kg Results 03/01/21 07:25 03/02/21 07:16 Cardiac Enzymes 03/01/21 03/02/21 Range/Units 10:27 00:51 Troponin I 0.593 H* 0.214 H* (0.000-0.034) ng/mL Coagulation 03/01/21 Range/Units 07:25 PT 14.5 H (9.0-12.0) sec APTT 26.4 (22.0-30.0) sec Comprehensive Metabolic Panel 03/02/21 Range/Units 07:16 Sodium 147 H (137-145) mmol/L Potassium 3.2 L (3.5-5.1) mmol/L Chloride 117 H (98-107) mmol/L Carbon Dioxide 22 (22-30) mmol/L BUN 80 H (7-17) mg/dL Creatinine 1.58 H (0.52-1.04) mg/dL Glucose 155 H (74-99) mg/dL Calcium 8.2 L (8.4-10.2) mg/dL Current Medications Generic Name Dose Route Start Last Admin Trade Name Freq PRN Reason Stop Dose Admin Acetaminophen 500 mg 03/01/21 15:29 03/01/21 15:34 Acetaminophen Tab 500 Mg Tab PO 500 mg Q6HR PRN Administration Fever and/ or Pain Albuterol Sulfate 2.5 mg 03/01/21 12:38 Albuterol Nebulized 2.5 Mg/3 Ml INHALATION RT-Q4H PRN Wheezing Alprazolam 0.25 mg 03/01/21 12:38 Alprazolam 0.25 Mg Tab PO BID PRN Anxiety Aspirin 81 mg 03/02/21 08:00 03/02/21 08:14 Aspirin 81 Mg PO 81 mg DAILY@0800 [facility] Administration Atorvastatin Calcium 20 mg 03/01/21 20:00 03/01/21 20:05 Atorvastatin 20 Mg Tab PO 20 mg HS@2000 [facility] Administration Piperacillin Sod/Tazobactam 100 mls @ 25 mls/hr 03/01/21 16:00 03/02/21 08:13 Sod 3.375 gm/ Sodium Chloride IVPB 25 mls/hr Q8HR [facility] Administration Dextrose/Sodium Chloride 1,000 mls @ 130 mls/hr 03/01/21 12:45 03/02/21 03:09 Dextrose 5%-1/2ns Iv Soln IV 130 mls/hr .Q7H42M [facility] Administration Levothyroxine Sodium 250 mcg 03/01/21 20:00 03/01/21 20:05 Levothyroxine 125 Mcg Tab PO 250 mcg HS@1999 [facility] Administration Methocarbamol 750 mg 03/01/21 15:00 03/02/21 06:03 Methocarbamol 750 Mg Tab PO 750 mg TID@0700,1500,2300 [facility] Administration Montelukast Sodium 10 mg 03/01/21 20:00 03/01/21 20:06 Montelukast 10 Mg Tab PO 10 mg HS@1999 [facility] Administration Multivitamins 1 each 03/02/21 08:00 03/02/21 08:14 Multivitamins, Thera 1 Each Tab PO 1 each DAILY@08 [facility] Administration Pantoprazole Sodium 40 mg 03/02/21 08:00 03/02/21 08:14 Pantoprazole 40 Mg Tablet PO 40 mg DAILY@0800 [facility] Administration Sertraline HCl 200 mg 03/01/21 20:00 03/01/21 20:06 Sertraline 100 Mg Tab PO 200 mg HS@1999 [facility] Administration Verapamil HCl 180 mg 03/01/21 20:00 03/02/21 08:14 Verapamil Sr 180 Mg Tablet.Er PO 180 mg BID@799,1999 [facility] Administration Intake and Output 03/01/21 03/02/21 03/02/21 22:59 06:59 14:59 Intake Total 20 Output Total 500 1050 Balance -480 -1050 Intake: Oral 20 Output: Urine 500 1050 Other: Voiding Method Indwelling Catheter Indwelling Catheter # Bowel Movements 1 Weight 94.5 kg 03/01/21 07:25 03/02/21 07:16
--- NOTE | 2021-03-02 10:36 | P.CNNES ---
History of Present Illness Consult date: 03/02/21 Requesting physician: Shekhar Palomares Reason for Consult: altered mental status History of Present Illness: This a 75-year-old woman with medical history of stroke with residual left-sided deficit, atrial fibrillation, DVT (righ leg), heart failure, hypertension, hyperlipidemia, pulmonary embolism, hypothryoidism presented emergency department via EMS on 03/01/2021 for altered mental status. History is obtained from medical record since patient is unable to provide that. The patient resides in assisted living [facility] and that the patient was found unresponsive on 03/01. The patient's last normal was on 02/28/2021 at nighttime and that it is reported to the patient went to bed possibly at 9pm. Also per the ED note it is reported by the EMS the patient does have a fever bites does not have off. Per the patient nurse the patient has not had any seizure-like activity in the hospital that was reported to her or that the she has seen since she took over the shift. Since the patient has been in the hospital she's been afebrile other than the first temperature. Per the patient nurse one of the family notified her that she has baseline right eyes flutter that is chronic. She is not on any anticoagulation for her history of atrial fibrillation, PE and DVT and unsure why not. Patient home medication per EMR is Xanax, vitamin D2, verapamil, Zoloft, multivitamin, Robaxin, potassium, Synthroid, gabapentin 300 mg tablet twice a day, Lasix 20 mg twice a day, enalapril, Lipitor 20 mg daily at bedtime, aspirin 81 mg, Some other workup in the hospital consisted of: Initial vital signs: Blood pressure of 125/83, heart rate of 100, respiratory of 28, temperature of 100.4 Fahrenheit axillary and pulse ox of 94% and liters on nasal cannula. Since the patient has been the hospital she's been afebrile other than the initial temperature. CBC with differential initial one is 16.8 which is elevated and it's predominantly neutrophilic. Chemistry panel is the sodium is 153 which is elevated, creatinine is 2.0 which is also elevated. Initial BUN is 103 which is elevated chloride 120 is elevated the repair creatinine is 1.58 which is trending down and the repeat his sodium is 147 was also trending down that. AST of 29 and ALT 23 which is within normal limits. Calcium is 9.3 which is also within normal limits. Troponin is 0.64 6 repeat his 0.593 and the last troponin is 0.214 which is trending down. CT of the head is reported as mild ventriculomegaly with Starr ratio of 0.37. This may be a component of central cerebral atrophy correlate to exclude normal pressure hydrocephalus. Moderate confluent burden of chronic small vessel ischemic disease. Old lacunar infarct in the left basal ganglia. No acute intracranial abnormality otherwise seen. Carotid duplex is reported as there is antegrade flow in the vertebral arteries at. The images and measurements suggest less than that 20% stenosis in both internal carotid arteries. EKG is reported as normal sinus rhythm. Possible left atrial enlargement. Septal infarct, age undetermined. Abnormal EKG. Review of Systems Review of system is limited and apparent positive and negative as per HPI. Past Medical History Past Medical History: Atrial Fibrillation, Asthma, Heart Failure, Deep Vein Thrombosis (DVT), GERD/Reflux, Hyperlipidemia, Hypertension, Osteoarthritis (OA), Pulmonary Embolus (PE), Renal Disease, Thyroid Disorder Additional Past Medical History / Comment(s): MIGRAINE HEADACHE, RIGHT LEG-DVT History of Any Multi-Drug Resistant Organisms: MRSA Date of last positivie culture/infection: 2008 MDRO Source:: LEFT KNEE Past Surgical History: Appendectomy, Cholecystectomy, Tonsillectomy Additional Past Surgical History / Comment(s): D&C, Past Anesthesia/Blood Transfusion Reactions: No Reported Reaction Past Psychological History: No Psychological Hx Reported, Anxiety, Depression Smoking Status: Never smoker Past Alcohol Use History: None Reported Past Drug Use History: None Reported - Past Family History Mother Family Medical History: No Reported History Father Family Medical History: Hypertension Medications and Allergies Home Medications Medication Instructions Recorded Confirmed Type ALPRAZolam [Xanax] 0.25 mg PO BID PRN 08/24/18 03/01/21 History Albuterol Sulfate [Proventil Hfa] 2 puff INHALATION RT-Q4H PRN 08/24/18 03/01/21 History Ergocalciferol (Vitamin D2) 50,000 unit PO FR@0800 08/24/18 03/01/21 History [Drisdol] Furosemide [Lasix] 20 mg PO BID@0800,2000 08/24/18 03/01/21 History Gabapentin [Neurontin] 300 mg PO TID@0700,1500,2300 08/24/18 03/01/21 History Levothyroxine Sodium [Synthroid] 250 mcg PO HS@199908/24/18 03/01/21 History Methocarbamol [Robaxin-750] 750 mg PO TID@0700,1500,2300 08/24/18 03/01/21 History Montelukast [Singulair] 10 mg PO HS@199908/24/18 03/01/21 History Multivitamins, Thera [Multivitamin 1 tab PO DAILY@79908/24/18 03/01/21 History (formulary)] Potassium Chloride [K-Tab ER] 20 meq PO MOTUWETHFR@79908/24/18 03/01/21 History Sertraline HCl [Zoloft] 200 mg PO HS@199908/24/18 03/01/21 History Fexofenadine HCl [Jamia Allergy] 180 mg PO DAILY@79910/05/18 03/01/21 History Verapamil Sr [Isoptin Sr] 180 mg PO BID@799,199910/05/18 03/01/21 History Aspirin EC [Ecotrin Low Dose] 81 mg PO DAILY@79903/01/21 03/01/21 History Atorvastatin [Lipitor] 20 mg PO HS@199903/01/21 03/01/21 History Enalapril [Vasotec] 20 mg PO DAILY@79903/01/21 03/01/21 History Fluticasone Propionate [Flovent 1 puff INHALATION RT-BID@799,199903/01/21 03/01/21 History Hfa 110 mcg] Omeprazole [PriLOSEC] 20 mg PO DAILY@79903/01/21 03/01/21 History Allergies Allergy/AdvReac Type Severity Reaction Status Date / Time acetylcysteine Allergy Rash/Hives Verified 03/01/21 07:53 [From Mucomyst] aspirin [From Soma Compound] Allergy Rash/Hives Verified 03/01/21 07:53 astemizole [From Hismanal] Allergy Rash/Hives Verified 03/01/21 07:53 bee pollen Allergy Anaphylaxis Verified 03/01/21 07:53 calcium carbonate Allergy Anaphylaxis Verified 03/01/21 07:53 [From Os-Spencer] carisoprodol Allergy Rash/Hives Verified 03/01/21 07:53 [From Soma Compound] cephalexin [From Keflex] Allergy Rash/Hives Verified 03/01/21 07:53 cigarette smoke Allergy Rash/Hives Verified 03/01/21 07:53 cromolyn Allergy Rash/Hives Verified 03/01/21 07:53 erythromycin base Allergy Rash/Hives Verified 03/01/21 07:53 estrogens, conjugated Allergy Anaphylaxis Verified 03/01/21 07:53 [From Prempro] hydrochlorothiazide Allergy Anaphylaxis Verified 03/01/21 07:53 [From Dyazide] isoetharine [From Bronkosol] Allergy Rash/Hives Verified 03/01/21 07:53 medroxyprogesterone Allergy Anaphylaxis Verified 03/01/21 07:53 [From Prempro] meperidine [From Demerol] Allergy Rash/Hives Verified 03/01/21 07:53 metoclopramide [From Reglan] Allergy Anaphylaxis Verified 03/01/21 07:53 metoprolol [From Toprol XL] Allergy Anaphylaxis Verified 03/01/21 07:53 mold Allergy Rash/Hives Verified 03/01/21 07:53 naproxen [From Anaprox] Allergy Anaphylaxis Verified 03/01/21 07:53 perindopril [From Aceon] Allergy Anaphylaxis Verified 03/01/21 07:53 promethazine [From Phenergan] Allergy Rash/Hives Verified 03/01/21 07:53 ragweed pollen Allergy Rash/Hives Verified 03/01/21 07:53 spironolactone Allergy Anaphylaxis Verified 03/01/21 07:53 [From Aldactone] triamterene [From Dyazide] Allergy Anaphylaxis Verified 03/01/21 07:53 radiology dye Allergy Anaphylaxis Uncoded 03/01/21 07:53 tb serum Allergy Unknown Uncoded 03/01/21 07:53 Physical Examination - Vital Signs Vital Signs: Vital Signs Temp Pulse Pulse Resp BP BP Pulse Ox 03/02/21 08:00 97.9 F 72 18 121/76 99 03/02/21 03:47 97.4 F L 74 18 145/67 99 03/02/21 00:00 97.6 F 76 18 125/63 99 03/01/21 20:00 98.3 F 80 20 124/59 98 03/01/21 15:14 99 F 67 16 118/71 94 L 03/01/21 13:06 83 22 03/01/21 12:00 97 F L 83 22 158/64 98 03/01/21 09:00 98.8 F 92 18 109/67 97 Intake and Output 03/01/21 03/02/21 03/02/21 22:59 06:59 14:59 Intake Total 20 Output Total 500 1050 Balance -480 -1050 Intake: Oral 20 Output: Urine 500 1050 Other: Voiding Method Indwelling Catheter Indwelling Catheter # Bowel Movements 1 Weight 94.5 kg GENERAL: The patient is lying in bed and is not in acute distress. CHEST: The heart rate is regular rate rhythm. No murmurs to auscultation. No carotid bruit bilaterally. LUNG: Clear to auscultation bilaterally no wheezing noted throughout. Not labored breathing. ABDOMEN/GI: Bowel sounds present in all 4 quadrants. No tenderness to palpation throughout. NEUROLOGICAL: Higher mental function: The patient is awake, alert, oriented to self only. She would not respond to time and place. She is able to correctly chose name of pen with options but is very slow to respond. Patient is following very few commands (showed thumbs up over the right hand, smiled). Could not assess language in detail because of mentation. Cranial nerves: The pupils are round, right is 5mm and left is 2-3 mm and reactive to light. Right eye ptosis and has twitching of the right eye (per nurse she was notified by family that this is chronic). Has left lower facial weakness. No dysarthria. Could not assess the rest of cranial nerves because of her cooperation. Motor: The strength is able to move bilateral upper extrmities above gravity but right seems 5- while left is 4. Lower could not assess because of her cooperation but able to dorsiflex and plantar flex ankles (right >left). Has slight increase tone over the left. Normal bulk. Cerebellum: Could not assess. Sensation: Could not assess Reflexes (right/left): 2+ while lowers at knees are 0 (hard to assess because of increase body size) and ankles are 0-1. Plantars are mute bilaterally. Results Urinalysis is negative for ureter tract infection. Chest x-ray is reported as some strandy area of atelectasis. Old healed left sided rib fracture deformity. No definite of acute process. Lane virus PCR was not detected - Laboratory Findings CBC and BMP: 03/01/21 07:25 03/02/21 07:16 Abnormal Lab Findings: Abnormal Labs 03/01/21 03/01/21 03/01/21 07:25 07:25 07:25 WBC 16.8 H RBC 5.48 H Hgb 16.5 H Hct 49.4 H Neutrophils # (Manual) 7.80 H Lymphocytes # (Manual) 7.39 H Monocytes # (Manual) 1.68 H PT 14.5 H INR 1.4 H Sodium Potassium Chloride Carbon Dioxide BUN Creatinine Glucose Calcium Troponin I Urine Protein Trace H 03/01/21 03/01/21 03/01/21 07:25 07:25 10:27 WBC RBC Hgb Hct Neutrophils # (Manual) Lymphocytes # (Manual) Monocytes # (Manual) PT INR Sodium 153 H Potassium Chloride 120 H Carbon Dioxide 20 L BUN 103 H* Creatinine 2.00 H Glucose 132 H Calcium Troponin I 0.646 H* 0.593 H* Urine Protein 03/02/21 03/02/21 00:51 07:16 WBC RBC Hgb Hct Neutrophils # (Manual) Lymphocytes # (Manual) Monocytes # (Manual) PT INR Sodium 147 H Potassium 3.2 L Chloride 117 H Carbon Dioxide BUN 80 H Creatinine 1.58 H Glucose 155 H Calcium 8.2 L Troponin I 0.214 H* Urine Protein Assessment and Plan Assessment: * Encephalopathy of unspecified etiology. I am concerned about viral men ingoencephalitis (altered mental status, leukocytosis and low grade fever). Rule out other underlying infection. * Also some of altered mental status could be component due to metabolic encephalopathy (acute kidney insuffiency, hypernatremia) * Right eye twitching (per family chronic that was notified to nurse) * Reported History of stroke with residual left-sided weakness (but on CT head has lacunar infarct over the left basal ganglia which should give right sided weakness) * Acute kidney insufficiency--trending down * Acute hypernatremia (presented with 153) likely due to dehydration--trending d own * Elevated troponin--trending down. * History of Atrial fibrillation * History of DVT (right leg) * History of Pulmonary embolism * Hyperlipidemia * Hypothyroidism Plan: * I ordered stat MRI and the and a stat anesthesiology consult for lumbar puncture. I consulted the infection disease team. * An EEG is ordered by the primary team and is pending. I will not start the patient on an antiepileptic drug unless there is epileptiform discharges or seizure on the EEG. * Ordered TSH, vitamin B12, folate, hemoglobin A1c. * The echo was ordered by the primary team and is pending. * The patient is on home dose of ASA 81mg and Lipitor 20mg qhs. * Q4 hour neuro checks and continuous cardiac monitoring. * PT, OT and [facility] are consulted. * Cardiology team is consulted. * Will defer the rest of medical management to the primary team. The plan is discussed with the patient's nurse. Will attempt to get hold of family and get more information. Thank you for the consultation. Jose Degroot M.D. Neuro-hospitalist Time with Patient: Greater than 30
[2021-03-02] MEDS ORDERED: Potassium Replacement Protocol 1 EACH MISC MISCELLANE PRN (11:02)
--- NOTE | 2021-03-02 11:51 | ECHOF ---
Referral Reason:Rule out thrombus MEASUREMENTS -------- HEIGHT: 165.1 cm WEIGHT: 94.3 kg BP: 145/67 RVIDd: 2.6 cm (< 3.3) IVSd: 1.4 cm (0.6 - 1.1) LVIDd: 2.7 cm (3.9 - 5.3) LVPWd: 1.2 cm (0.6 - 1.1) IVSs: 1.6 cm LVIDs: 2.0 cm LVPWs: 1.4 cm LA Diam: 2.7 cm (2.7 - 3.8) Ao Diam: 2.8 cm (2.0 - 3.7) AV Cusp: 1.8 cm (1.5 - 2.6) MV EXCURSION: 6.074 mm (> 18.000) MV EF SLOPE: 18 mm/s (70 - 150) EPSS: 0.9 cm MV E Dionicio: 0.34 m/s MV DecT: 451 ms MV A Dionicio: 0.80 m/s MV E/A Ratio: 0.42 RAP: 5.00 mmHg RVSP: 43.76 mmHg FINDINGS -------- Sinus rhythm. This was a technically difficult study with suboptimal views. The left ventricular size is normal. There is moderate concentric left ventricular hypertrophy. O verall left ventricular systolic function is normal with, an EF between 55 - 60 %. The right ventricle is normal in size. The left atrium is normal in size. The right atrial size is normal. 5 ml of Lumason was utilized for enhancement of images. Interatrial and interventricular septum intact. There is mild aortic valve sclerosis. The mitral valve is normal. Mild mitral regurgitation is present. The tricuspid valve appears structurally normal. Mild tricuspid regurgitation present. There is m ild pulmonary hypertension. The right ventricular systolic pressure, as measured by Doppler, is 43. 76mmHg. Trace/mild (physiologic) pulmonic regurgitation. The aortic root size is normal. Normal inferior vena cava with normal inspiratory collapse consistent with estimated right atrial pre ssure of 5 mmHg. There is no pericardial effusion. CONCLUSIONS -------- 1. This was a technically difficult study with suboptimal views. 2. There is moderate concentric left ventricular hypertrophy. 3. Overall left ventricular systolic function is normal with, an EF between 55 - 60 %. 4. The left atrium is normal in size. 5. 5 ml of Lumason was utilized for enhancement of images. 6. There is mild aortic valve sclerosis. 7. Mild mitral regurgitation is present. 8. Mild tricuspid regurgitation present. 9. There is mild pulmonary hypertension. 10. Trace/mild (physiologic) pulmonic regurgitation. 11. There is no pericardial effusion. BRAND MGR: Trinity Roman RDCS
[2021-03-02] MEDS: POTASSIUM CHLORIDE ER 20 MEQ TAB.ER PO SCH ×2 (12:16→16:54)
--- NOTE | 2021-03-02 13:39 | MR ---
EXAMINATION TYPE: MR brain wo con DATE OF EXAM: 03/02/2021 COMPARISON: CT brain from yesterday. HISTORY: Altered mental status TECHNIQUE: Multiplanar, multisequence imaging of the brain and brainstem is performed without IV cont rast. FINDINGS: Diffusion weighted images demonstrate no evidence of a recent infarct or other diffusion abnormality. There is persistent diffuse ventricular and sulcal prominence with ventricular size slightly out of p roportion to degree of sulcal effacement. Multifocal areas of T2 hyperintensity throughout the superf icial deep and periventricular white matter with more confluent appearance at deep and periventricula r levels is present. Midline structures demonstrate normal morphology. The craniocervical junction appears within normal limits. Normal vascular flow voids are present. Some dependent fluid right sphenoid sinus otherwise p aranasal sinuses are clear. IMPRESSION: 1. No MRI evidence for recent infarct. 2. Fairly moderate diffuse cerebral atrophy with possible underlying normal pressure hydrocephalus re demonstrated, correlate clinically. 3. Severe nonspecific white matter changes are presumed on basis of product of chronic small vessel i schemic change in patient of this age.
--- NOTE | 2021-03-02 15:04 | EEG ---
ELECTROENCEPHALOGRAM REPORT DATE OF SERVICE: 03/02/2021. CLINICAL HISTORY: This is a 75-year-old woman who presented to the emergency department for altered mental status. The video EEG is obtained to evaluate for seizure epileptiform activity. RELEVANT MEDICATION: The patient is not on any antiepileptic drugs. EEG: A routine 21 channel EEG is performed with video using the 10/20 electrode placement system. DESCRIPTION: Wakefulness is only obtained. During wakefulness, the background consists of low to moderate voltage of nonrhythmic 5-6 hertz theta activity. There was no physiological sleep architecture seen. There is no focal slowing. There is moderate to significant myogenic artifact over the bilateral temporal region. Interictal and ictal none. ACTIVATION PROCEDURE: Photic stimulation and hyperventilation are not performed. CLINICAL INTERPRETATION: This is an abnormal EEG. The background slowing is suggestive of moderate encephalopathy of unspecified etiology. There are no focal slowing, epileptiform discharge or seizure on the EEG. Clinical correlation is recommended. JOHNNIE / TOSHIA: [id number] / MTDD
[2021-03-02 15:37] LABS: Hemoglobin A1C 6.1 % (4.0-6.0)
[2021-03-02] MEDS: FLUCONAZOLE 100 MG TAB PO SCH (16:54)
--- NOTE | 2021-03-02 17:39 | P.PN ---
Progress Note - Text Progress Note Date: 03/02/21 Chief Complaint: Not talking History of presenting complaint: This is a 75-year-old patient who follows with Dr. Tomás Rios. Patient is a resident of assisted living [facility]. Patient was found by the staff this morning to be unresponsive. Patient was last seen normal before she went to bed. Around 9 PM previous night. No complaints. 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 As per the EMS patient was responding to painful stimuli but otherwise not alert. Patient had a fixed gaze forward and will not track with her eyes. She was making some non- painful speech. Her pulse was noted to be a bit rapid and strong palpation. Patient's put on nasal cannula. EKG showed sinus tachycardia. IV access was done. Patient herself is not able to give me any history. Could only speak her name. Patient admitted with what was felt to be acute metabolic encephalopathy. Secondary to hypernatremia and acute kidney injury. Started on IV fluids. March 02: Patient received IV fluids overnight. More awake today. Answers some simple questions. Tired. knows that she is in the hospital. Patient was seen by neurology who ordered a lumbar puncture. Review of systems: Was done for constitutional, cardiovascular, GI, pulmonary. relevant finding as above Active Medications Acetaminophen (Acetaminophen Tab 500 Mg Tab) 500 mg PO Q6HR PRN PRN Reason: Fever and/ or Pain Last Admin: 03/01/21 15:34 Dose: 500 mg Documented by: Albuterol Sulfate (Albuterol Nebulized 2.5 Mg/3 Ml) 2.5 mg INHALATION RT-Q4H PRN PRN Reason: Wheezing Alprazolam (Alprazolam 0.25 Mg Tab) 0.25 mg PO BID PRN PRN Reason: Anxiety Aspirin (Aspirin 81 Mg) 81 mg PO DAILY@0800 [facility] Last Admin: 03/02/21 08:14 Dose: 81 mg Documented by: Atorvastatin Calcium (Atorvastatin 20 Mg Tab) 20 mg PO HS@2000 [facility] Last Admin: 03/01/21 20:05 Dose: 20 mg Documented by: Fluconazole (Fluconazole 100 Mg Tab) 100 mg PO DAILY [facility] Last Admin: 03/02/21 16:54 Dose: 100 mg Documented by: Piperacillin Sod/Tazobactam (Sod 3.375 gm/ Sodium Chloride) 100 mls @ 25 mls/hr IVPB Q8HR [facility] Last Admin: 03/02/21 16:55 Dose: 25 mls/hr Documented by: Dextrose/Sodium Chloride (Dextrose 5%-1/2ns Iv Soln) 1,000 mls @ 130 mls/hr IV .Q7H42M [facility] Last Admin: 03/02/21 15:38 Dose: Not Given Documented by: Levothyroxine Sodium (Levothyroxine 125 Mcg Tab) 250 mcg PO HS@1999 [facility] Last Admin: 03/01/21 20:05 Dose: 250 mcg Documented by: Methocarbamol (Methocarbamol 750 Mg Tab) 750 mg PO TID@0700,1500,2300 [facility] Last Admin: 03/02/21 16:55 Dose: 750 mg Documented by: Miscellaneous Information (Potassium Replacement Protocol 1 Each Misc) 1 each MISCELLANE DAILY PRN; Protocol PRN Reason: Per Protocol Montelukast Sodium (Montelukast 10 Mg Tab) 10 mg PO HS@1999 [facility] Last Admin: 03/01/21 20:06 Dose: 10 mg Documented by: Multivitamins (Multivitamins, Thera 1 Each Tab) 1 each PO DAILY@08 [facility] Last Admin: 03/02/21 08:14 Dose: 1 each Documented by: Pantoprazole Sodium (Pantoprazole 40 Mg Tablet) 40 mg PO DAILY@08 [facility] Last Admin: 03/02/21 08:14 Dose: 40 mg Documented by: Sertraline HCl (Sertraline 100 Mg Tab) 200 mg PO HS@1999 [facility] Last Admin: 03/01/21 20:06 Dose: 200 mg Documented by: Verapamil HCl (Verapamil Sr 180 Mg Tablet.Er) 180 mg PO BID@799,1999 [facility] Last Admin: 03/02/21 08:14 Dose: Not Given Documented by: Past medical history to include: Atrial fibrillation, asthma, CHF, DVT, GERD, hyperlipidemia, hypertension, osteoarthritis, PE, hypothyroid, Social history: Lives at [facility]. Assisted living. No history of smoking or alcohol Family history: Patient cannot tell Physical examination: VITAL SIGNS: 98.4, 71, 16, 125/83, 98% room air GENERAL: Laying in bed, more awake looking about today EYES: Pupils equal. Conjunctiva normal. HEENT: External appearance of nose and ears normal, oral cavity dry NECK: JVD unable to assess; masses not palpable. HEART: First and second heart sounds are normal; no edema. LUNGS: Respiratory rate normal; clear to auscultation. ABDOMEN: Soft, nontender, liver spleen not palpable, no masses palpable. PSYCH: Patient again tell her name, knows that she is the hospital. NEUROLOGICAL: Facial asymmetry with mouth slightly pulled to the right. Increase left palpebral fissure. Left arm contracture.. INVESTIGATIONS, reviewed in the clinical context: March 02: Sodium 147 potassium 3.2 BUN 80 creatinine 1.58 TSH 3.9 MRI brain: No evidence of infarct. Fairly moderate diffuse cerebral atrophy with possible NPH. Severe nonspecific white matter changes. 2-D echocardiogram: Moderate concentric LVH. EF 55-60%. EEG: Suggestive of moderate encephalopathy. No epileptiform activity. Carotid Doppler: No significant stenosis. White count 16.8 hemoglobin 16.5 platelets 161 sodium 153 potassium 4.1 BUN 103 creatinine 2.0 bicarbonate 20 Troponin I 0.646, 0.593 UA showing trace protein Coronavirus [PCR]: Not detected EKG tracing personally reviewed by me-normal sinus rhythm. Rate of 100 Chest x-ray film personally reviewed by me-some chronic patches Computed tomography scan of the brain: Central cerebral atrophy. Chronic small vessel ischemic disease. Need to exclude NPH Assessment and plan -Patient presented acute mental status changes. In the setting of hypernatremia and acute kidney injury. acute metabolic encephalopathy.: Slow to respond Continue IV fluids -Paroxysmal atrial fibrillation. Currently sinus rhythm Telemetry -Hypernatremia from free water deficit., Slowly improvement Continue IV fluids D5.45 at 1 30 mL an hour. Repeat labs -Acute kidney injury, likely prerenal from poor oral intake.: Slow to respond IV fluids. Repeat labs -Acute metabolic acidosis from any failure, improved Continue IV fluids -Hypothyroid Continue Synthroid -Essential hypertension Continue with Verapamil SR 180 mg twice a day -Hyperlipidemia Continue with Lipitor -DO NOT RESUSCITATE Continue IV fluids. Lumbar puncture was ordered by neurology. Repeat labs in the morning. Seen by speech therapy: Recommend full liquids with progression to pured diet as tolerated. Assisted feeding.
[2021-03-02 17:51] LABS: Glucose,CSF 71 mg/dL (40-70); Total Protein,CSF 70 mg/dL (12-60)
--- NOTE | 2021-03-02 18:34 | P.ANPRN ---
Procedure Note - Anesthesia - Epidural/Spinal Spinal Time Out Performed: Yes Date of Procedure: 03/02/21 Procedure Start Time: 16:00 Procedure Stop Time: 16:25 Location of Patient: Phase I Indication: Requested by Surgeon (neurology consulted for lumbar puncture. Risks and benefits of procedure discussed with patient. Uneventful procedure. 4 vials with 2 cc sent to lab for further testing. If postural headache exists in 24-48, please reconsult for postdural puncture headache.) Sedation Type: Awake Preparation: Sterile Prep Number of Attempts: 2 Position: Sitting Catheter: None Needle Guage: 22 Injectate: Other Blood Aspirated: No Pain Paresthesia on Injection Noted: No Events: Uneventful and Well Tolerated
[2021-03-02 18:50] LABS: Appearance,CSF Clear; CSF Tube Number 4; Nucleated Cells, CSF 0 u/L (0-5); Red Blood Cell,CSF 75 u/L (0-10)
[2021-03-02 18:52] LABS: Red Blood Cell, CSF Fresh 100 %
[2021-03-02 19:07] LABS: Basophils # (A) 0.2 k/uL (0-0.2); Basophils % (A) 1 %; Eosinophils # (A) 0.1 k/uL (0-0.7); Eosinophils % (A) 1 %; HCT 44.2 % (34.0-46.0); HGB 14.7 gm/dL (11.4-16.0); Lymphocytes # (A) 4.7 k/uL (1.0-4.8); Lymphocytes % (A) 35 %; MCH 30.3 pg (25.0-35.0); MCHC 33.2 g/dL (31.0-37.0); MCV 91.2 fL (80.0-100.0); Mean Platelet Volume 12.4; Monocytes # (A) 0.8 k/uL (0-1.0); Monocytes % (A) 6 %; Neutrophils # (A) 7.2 k/uL (1.3-7.7); Neutrophils % (A) 54 %; RBC 4.85 m/uL (3.80-5.40); WBC 13.4 k/uL (3.8-10.6)
[2021-03-02 19:25] LABS: Platelet Count 84 k/uL (150-450)
[2021-03-02] MEDS: ATORVASTATIN 20 MG TAB PO SCH (20:34)
[2021-03-02] MEDS: LEVOTHYROXINE 125 MCG TAB PO SCH (20:34)
[2021-03-02] MEDS: SERTRALINE 100 MG TAB PO SCH (20:35)
[2021-03-02] MEDS: MONTELUKAST 10 MG TAB PO SCH (20:35)
[2021-03-02] MEDS ORDERED: IOPAMIDOL CONTRAST (ORAL USE) VIAL PO PRN (22:23)
[2021-03-02 22:35] LABS: Folate, Serum 8.3 ng/mL
[2021-03-03] MEDS: methocarbamoL 750 MG TAB PO SCH ×4 (00:20→23:23)
[2021-03-03] MEDS: PIPERACILLIN-TAZOBACTAM 3.375 GM in SODIUM CHLORIDE 0.9% 100 ML IVPB SCH ×4 (00:25→23:23)
[2021-03-03] MEDS: DEXTROSE 5%-0.45% NACL 1,000 ML IV SCH ×2 (00:26→23:21)
--- NOTE | 2021-03-03 06:52 | CONS ---
CONSULTATION DATE OF SERVICE: 03/02/2021 REASON FOR STAY: Fever, leukocytosis, mental status changes. HISTORY OF PRESENT ILLNESS: The patient is a 75-year-old female who was brought into the ER yesterday morning for evaluation of mental status changes. Apparently the patient was seen the night before at 10:00 pm to be normal. However, when the patient woke up yesterday morning she was not talking and was just staring behind. EMS was called and brought the patient to the ER. The patient was noticed to have a fever on presentation to the hospital with temperature 100.4 degrees Fahrenheit. The patient did not have significant hypoxemia. Did have elevated white count of 16.8 with the left shift and repeat is 13.4. The patient did have elevated BUN and creatinine. Liver enzymes are normal. Troponin was elevated. Urine has been negative. Lane PCR was negative. The patient did have chest x-ray showing atelectasis but no consolidation. Because of the mental status changes and fever, CSF examination was done which shows 75 RBC, zero WBC, glucose was 71, protein is 70. The patient is currently being treated with Zosyn. Infectious Disease was consulted with concern for possible meningitis or encephalitis. The patient on my evaluation was slightly weak. She knows that she was in the hospital. When asked specifically, the patient denies having headache. No chest pain. Occasional cough. Denies any abdominal pain. No vomiting or diarrhea has been reported. Overall history remains to be limited and most of the above mentioned has been extruded from review of the chart. REVIEW OF SYSTEMS: Positive points have been mentioned in HPI. Rest of systems are negative. PAST MEDICAL HISTORY: Atrial fibrillation, asthma, heart failure, DVT, gastroesophageal reflux disease, hypertension, hyperlipidemia, osteoarthritis, pulmonary embolus, renal insufficiency. PAST SURGICAL HISTORY: Appendectomy, cholecystectomy, tonsillectomy and D and C. SOCIAL HISTORY: No history of smoking, drinking or drug use. FAMILY HISTORY: No pertinent findings noticed. ALLERGIES: To multiple medications as reviewed in the chart. MEDICATION: Currently the patient is on Tylenol, Ventolin, Xanax, aspirin, Lipitor, Diflucan, Synthroid, Robaxin, Singulair, Theragran, Protonix, Zosyn, Zoloft, and . PHYSICAL EXAMINATION: VITAL SIGNS: Her blood pressure is 127/71 with a pulse of 80, temperature 97.5. She is 96% on room air. GENERAL DESCRIPTION: Patient is an elderly female lying in bed in no distress. No tachypnea or accessory muscles of respiration use. HEENT: Examination shows no pallor or scleral icterus. Oral mucous membrane is dry. NECK: Trachea central, no thyromegaly. LUNGS: Unlabored breathing, decreased breath sounds at the bases. No wheeze. HEART: S1-S2, regular rate and rhythm. ABDOMEN: Soft, no tenderness. No guarding or rigidity. EXTREMITIES: No edema of the feet. SKIN: No rash or mass palpable. NEUROLOGICAL: Patient is awake, alert, oriented times one. Mood and affect normal. LABS: Hemoglobin is 14.7, white count 13.4 with a BUN of 18, creatinine 1.58. Troponins are elevated. Urine was negative. Chest x-ray showed atelectasis. DIAGNOSTIC IMPRESSION AND PLAN: 1. Patient presented to the hospital with mental status changes in this patient who did have a fever on presentation to the hospital. The patient did have elevated white count, but no obvious focus of infection on initial testing with negative chest x-ray and negative UA. CSF did show elevated protein, but white count was normal, negative. Acute encephalitis is less likely but not entirely excluded with concern for possible abdominal source. This patient did have some clear response to the IV fluid as well as Zosyn. 2. Patient did have multiple antibiotic allergies that will limit the number of antibiotics safe to use. PLAN: 1. Patient to continue Zosyn 3.75 g q.8 hours. 2. Will wait for HSV DNA by PCR . 3. We will obtain a CT of abdomen and pelvis with oral contrast only to rule out any intraabdominal pathology. 4. We will follow on clinical condition to further adjust medication if needed. Thank you for this consultation. Will follow this patient along with you. MMODL / IJN: [id number] /
[2021-03-03 08:12] LABS: Calcium 8.4 mg/dL (8.4-10.2); Potassium 3.5 mmol/L (3.5-5.1); Total Bilirubin 0.9 mg/dL (0.2-1.3); Total Protein 5.9 g/dL (6.3-8.2)
[2021-03-03 08:21] LABS: Basophils # (A) 0.1 k/uL (0-0.2); Basophils % (A) 1 %; Eosinophils # (A) 0.1 k/uL (0-0.7); Eosinophils % (A) 1 %; HCT 41.6 % (34.0-46.0); HGB 14.2 gm/dL (11.4-16.0); Lymphocytes # (A) 3.5 k/uL (1.0-4.8); Lymphocytes % (A) 38 %; MCH 30.9 pg (25.0-35.0); MCHC 34.3 g/dL (31.0-37.0); MCV 90.2 fL (80.0-100.0); Mean Platelet Volume 12.1; Monocytes # (A) 0.4 k/uL (0-1.0); Monocytes % (A) 4 %; Neutrophils # (A) 4.7 k/uL (1.3-7.7); Neutrophils % (A) 52 %; RDW 14.5 % (11.5-15.5); WBC 9.1 k/uL (3.8-10.6)
[2021-03-03 08:22] LABS: Platelet Count 99 k/uL (150-450)
[2021-03-03] MEDS: VERAPAMIL SR 180 MG TABLET.ER PO SCH ×2 (08:49→23:22)
[2021-03-03] MEDS: MULTIVITAMINS, THERA 1 EACH TAB PO SCH (08:49)
[2021-03-03] MEDS: FLUCONAZOLE 100 MG TAB PO SCH (08:49)
[2021-03-03] MEDS: ASPIRIN 81 MG PO SCH (08:49)
[2021-03-03] MEDS: PANTOPRAZOLE 40 MG TABLET PO SCH (08:49)
--- NOTE | 2021-03-03 09:18 | P.PN ---
Subjective HISTORY OF PRESENTING ILLNESS This is a pleasant 75-year-old female past medical history significant for CVA, hypertension, PE/DVT, dyslipidemia, chronic kidney disease and hypothyroidism. She does not follow in our office. She is confused at baseline and unable to given any prior history. Information is obtained from nursing staff and medical record. We have been asked to see in consultation for elevated troponin. She was brought to the hospital by her due to altered mental status. She was apparently seen normal Monday night and woke up confused and gazing off Monday morning. EKG on arrival revealed sinus mechanism with poor R- wave progression and conduction delay. Chest xray revealed strandy atelectasis and old healed left sided rib fracture. CT brain mild ventriculomegaly, central cerebral atrophy, moderate burden of chronic small vessel ischemia, old lacunar infarct and no acute intracranial abnormality noted. Carotid duplex reveals antegrade flow in the vertebral arteris with less than 20% stenosis bilaterally. Laboratory data reviewed, WBC 16.8, hgb 16.5, platelets 161, INR 1.4, sodium 147, potassium 3.2, creatinine on admission 2.0 repeat today 1.58 and troponin 0.646, 0.593 and 0.214. Currently daily cardiac medications include, verapamil 180 mg BID, lasix 20 mg BID, enalapril 20 mg daiy, atorvastatin 20 mg daily and aspirin 81 mg daily. Telemetry tracings reveal SR. 03/03/2021 Pt seen and examined laying flat resting comfortably in bed in no acute distress. She is more communicative today, but still confused. She denies chest pain, shortness of breath, dizziness or palpitations. Echocardiogram revealed preserved LV systolic function with no wall motion abnormalities, EF 55-60%. Telemetry tracings reveal persistent sinus rhythm. Blood pressure 117/78 and heart rate 81. Laboratory data reviewed, WBC 9.1, hemoglobin 14.2, platelets 99, sodium 148, potassium 3.5 and creatinine 1.09. PHYSICAL EXAMINATION CONSTITUTIONAL: No apparent distress. HEENT: Head is normocephalic. Pupils are equal, round. Sclerae anicteric. Mucous membranes of the mouth are moist. No JVD. No carotid bruit. CHEST EXAMINATION: Lungs are clear to auscultation. No chest wall tenderness is noted on palpation or with deep breathing. HEART EXAMINATION: Regular rate and rhythm. S1, S2 heard. Soft systolic ejection murmur at the base, no gallops or rub. EXTREMITIES: 2+ peripheral pulses, bilateral lower extremity non-pitting edema with appearance venous stasis and no calf tenderness. ASSESSMENT Altered mental status Leukocytosis Febrile illness Hypernatremia Kidney injury Troponin elevation of unclear significance, likely related to renal function or infection Thrombocytopenia History of CVA Hypertension Dyslipidemia PLAN No evidence of wall motion abnormality on echocardiogram. The patient is free o f symptoms of angina and has had no EKG changes. Troponin elevation likely related to renal function. Ongoing medical management. We will follow along as needed, please feel free to call with further questions or concerns. Nurse Practitioner note has been reviewed, I agree with a documented findings and plan of care. Patient was seen and examined. Objective - Vital Signs Vital signs: Vital Signs Temp 98.8 F 03/03/21 08:00 Pulse 74 03/03/21 08:00 Resp 16 03/03/21 08:00 BP 121/81 03/03/21 08:00 Pulse Ox 90 L 03/03/21 08:07 Intake & Output 03/02/21 03/03/21 03/03/21 18:59 06:59 18:59 Intake Total 420 0 Output Total 350 925 Balance 70 -925 0 Weight 95.5 kg Intake: Oral 420 0 Output: Urine 350 925 Other: Voiding Method Indwelling Catheter Indwelling Catheter - Labs CBC & Chem 7: 03/03/21 07:15 03/03/21 07:15 Labs: Abnormal Lab Results - Last 24 Hours (Table) 03/02/21 03/02/21 03/02/21 Range/Units 07:16 16:05 18:10 WBC 13.4 H (3.8-10.6) k/uL Plt Count 84 L (150-450) k/uL Sodium (137-145) mmol/L Chloride (98-107) mmol/L Carbon Dioxide (22-30) mmol/L BUN (7-17) mg/dL Creatinine (0.52-1.04) mg/dL Glucose (74-99) mg/dL Hemoglobin A1c 6.1 H (4.0-6.0) % Alkaline Phosphatase (38-126) U/L Total Protein (6.3-8.2) g/dL Albumin (3.5-5.0) g/dL CSF RBC 75 H (0-10) u/L CSF Glucose 71 H (40-70) mg/dL CSF Total Protein 70 H (12-60) mg/dL 03/03/21 03/03/21 Range/Units 07:15 07:15 WBC (3.8-10.6) k/uL Plt Count 99 L (150-450) k/uL Sodium 148 H (137-145) mmol/L Chloride 119 H (98-107) mmol/L Carbon Dioxide 19 L (22-30) mmol/L BUN 57 H (7-17) mg/dL Creatinine 1.09 H (0.52-1.04) mg/dL Glucose 143 H (74-99) mg/dL Hemoglobin A1c (4.0-6.0) % Alkaline Phosphatase 30 L (38-126) U/L Total Protein 5.9 L (6.3-8.2) g/dL Albumin 3.0 L (3.5-5.0) g/dL CSF RBC (0-10) u/L CSF Glucose (40-70) mg/dL CSF Total Protein (12-60) mg/dL Microbiology - Last 24 Hours (Table) 03/02/21 16:05 CSF Gram Stain - Preliminary Cerebral Spinal Fluid CSF Culture - Preliminary 03/01/21 07:25 Blood Culture - Preliminary Blood No Growth after 24 hours 03/01/21 07:25 Blood Culture - Preliminary Blood No Growth after 24 hours
[2021-03-03] MEDS ORDERED: CYANOCOBALAMIN 1,000 MCG/ML 1 ML VIAL IM ONE (12:02)
--- NOTE | 2021-03-03 12:17 | P.PN ---
Subjective Progress Note Date: 03/03/21 The patient is seen at bedside and she feels she is doing better today compared to yesterday. I spoke with patient's niece (Josi) via phone history of the patient. She had a history of TIA about 5 weeks (she was found unresponsive and had left sided weakness). She was initially at [facility] then transfer to main [facility] ([place] Since continued to have left sided weakness. She was in [place] and was able to walk with assistance. She was talking but not making sense at time. And again she presented to our facility because she had generalized weakness and not responsive. She had chronic remote eye twitching and drooping of her right eye. The patient does not have history of seizure. Objective - Vital Signs Vital signs: Vital Signs Temp 98.8 F 03/03/21 08:00 Pulse 74 03/03/21 08:00 Resp 16 03/03/21 08:00 BP 121/81 03/03/21 08:00 Pulse Ox 90 L 03/03/21 08:07 Intake & Output 03/02/21 03/03/21 03/03/21 18:59 06:59 18:59 Intake Total 420 0 Output Total 350 925 Balance 70 -925 0 Weight 95.5 kg Intake: Oral 420 0 Output: Urine 350 925 Other: Voiding Method Indwelling Catheter Indwelling Catheter - Exam GENERAL: The patient is lying in bed and is not in acute distress. NEUROLOGICAL: Higher mental function: The patient is awake, alert, oriented to self and stated she was in the hospital but could not tell me which. She would not respond to time. She seems slowing to respond but better than yesterday. She able to name objects correctly (pen and watch). She is following commands. No aphasia or neglect. Cranial nerves: The pupils are round, equal and reactive to light. Right eye ptosis and has twitching of the right eye (per niece this is chronic). Could not assess visual field because of cooperation. Normal facial sensation to touch throughout. Has left lower facial weakness (old). No dysarthria. Motor: The strength is right upper extremity is 5/5 while left is 4 (per niece old). Bilateral lower able to lift above gravity (right > left and per niece old). Cerebellum: Normal finger to nose Sensation: Normal to touch throughout. Reflexes (right/left): 2+ while lowers at knees are 0 (hard to assess because of increase body size) and ankles are 0-1. Plantars are mute bilaterally. WORK-UP: MRI the brain 03/02/2021 is reported as no MRI evidence for recent infarct. Fairly moderate diffuse cerebral atrophy with possible underlying normal pressure hydrocephalus redemonstrated. Correlate clinically. Severe nonspecific white matter changes are presumed on the basis of pocket or chronic small vessel ischemic change and that patient of this age. 2-D echo was reported as moderate concentric left ventricular hypertrophy. Eje ction fraction 55-60%. Left atrium is normal in size. Carotid duplex is reported as there is antegrade flow in the vertebral arteries. The images and measurements suggest less than 25% stenosis in both internal carotid arteries. Routine EEG on 03/02/2021: Is an abnormal routine EEG. The background slowing is suggestive of moderate encephalopathy of unspecified etiology. There are no focal slowing, epileptiform discharges or seizure on EEG. CSF study on 03/02/21: Appears clear, colorless, red blood cell 75, 0 nucleated cells, glucose 71 (normal 40-70), protein 70 (normal is 12-60). The CSF is not suggestive of meningoencephalitis. CSF has slightly increased protein. Vitamin B12 is 241 which is considered low normal (normal is 200-944). Folate serum is 8.3 and the normal is more than 5.38 TSH is 3.950 which is considered within normal limits. Hemoglobin A1c is 6.1 which is slightly elevated. - Labs CBC & Chem 7: 03/03/21 07:15 03/03/21 07:15 Labs: Abnormal Lab Results - Last 24 Hours (Table) 03/02/21 03/02/21 03/02/21 Range/Units 07:16 16:05 18:10 WBC 13.4 H (3.8-10.6) k/uL Plt Count 84 L (150-450) k/uL Sodium (137-145) mmol/L Chloride (98-107) mmol/L Carbon Dioxide (22-30) mmol/L BUN (7-17) mg/dL Creatinine (0.52-1.04) mg/dL Glucose (74-99) mg/dL Hemoglobin A1c 6.1 H (4.0-6.0) % Alkaline Phosphatase (38-126) U/L Total Protein (6.3-8.2) g/dL Albumin (3.5-5.0) g/dL CSF RBC 75 H (0-10) u/L CSF Glucose 71 H (40-70) mg/dL CSF Total Protein 70 H (12-60) mg/dL 03/03/21 03/03/21 Range/Units 07:15 07:15 WBC (3.8-10.6) k/uL Plt Count 99 L (150-450) k/uL Sodium 148 H (137-145) mmol/L Chloride 119 H (98-107) mmol/L Carbon Dioxide 19 L (22-30) mmol/L BUN 57 H (7-17) mg/dL Creatinine 1.09 H (0.52-1.04) mg/dL Glucose 143 H (74-99) mg/dL Hemoglobin A1c (4.0-6.0) % Alkaline Phosphatase 30 L (38-126) U/L Total Protein 5.9 L (6.3-8.2) g/dL Albumin 3.0 L (3.5-5.0) g/dL CSF RBC (0-10) u/L CSF Glucose (40-70) mg/dL CSF Total Protein (12-60) mg/dL Microbiology - Last 24 Hours (Table) 03/01/21 07:25 Blood Culture - Preliminary Blood No Growth after 48 hours 03/01/21 07:25 Blood Culture - Preliminary Blood No Growth after 48 hours 03/02/21 16:05 CSF Gram Stain - Preliminary Cerebral Spinal Fluid CSF Culture - Preliminary Assessment and Plan Assessment: * Encephalopathy seems metabolic encephalopathy (acute kidney insuffiency, hypernatremia). Not meningoencephalitis per CSF studies. NO seizures on routine EEG.---mentation improving. * Low vitamin B12 (241). * Right eye twitching (per family chronic that was notified to nurse) * Reported History of stroke with residual left-sided weakness about 4-5 weeks weeks and was hospitalized as outpatient (but on CT head has lacunar infarct over the left basal ganglia which should give right sided weakness) * Acute kidney insufficiency--trending down * Acute hypernatremia (presented with 153) likely due to dehydration--trending down * Elevated troponin--trending down. * Reported History of Atrial fibrillation not on anticoagulation * Reported History of DVT (right leg) Atrial fibrillation not on anticoagulation * Reported History of Pulmonary embolism * Hyperlipidemia * Hypothyroidism Plan: * I start the patient on vitamin B12 1000 mcg IM once and starting tomorrow 1000 mcg daily. * I also started the patient on Folic acid 1mg daily. * The patient is on home dose of ASA 81mg and Lipitor 20mg qhs. Regarding the reported history of atrial fibrillation, pulmonary embolism and DVT L with the defer the use of anticoagulation to the cardiology team * Q4 hour neuro checks and continuous cardiac monitoring. * PT, OT and COT ASSEMBLER are consulted. * Cardiology team is consulted. * Infection disease team is on board. * Will defer the rest of medical management to the primary team. * Regarding the suspicion of normal pressure hydrocephalus on MRI Brain, I would recommend the patient to follow-up with a neurologist as an outpatient and shashank t to get a lumbar puncture prior to assessing her gait then after. If there is improvement then consider COMPUTER SYSTEM TECHNICIAN shunt and follow-up with a neurosurgeon as an outpatient. The plan is discussed with the patient's nurse. The plan is also discussed with the patient's niece (Josi) via phone. There is no further neurological work-up. Jose Degroot M.D. Neuro-hospitalist Time with Patient: Less than 30
[2021-03-03] MEDS: BARIUM SULFATE 450 ML ORAL.SUSP BOTTLE PO PRN ×2 (13:02→16:10)
--- NOTE | 2021-03-03 15:59 | P.PN ---
Progress Note - Text Progress Note Date: 03/03/21 Chief Complaint: Not talking History of presenting complaint: This is a 75-year-old patient who follows with Dr. Tomás Rios. Patient is a resident of assisted living [facility]. Patient was found by the staff this morning to be unresponsive. Patient was last seen normal before she went to bed. Around 9 PM previous night. No complaints. 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 As per the EMS patient was responding to painful stimuli but otherwise not alert. Patient had a fixed gaze forward and will not track with her eyes. She was making some non- painful speech. Her pulse was noted to be a bit rapid and strong palpation. Patient's put on nasal cannula. EKG showed sinus tachycardia. IV access was done. Patient herself is not able to give me any history. Could only speak her name. Patient admitted with what was felt to be acute metabolic encephalopathy. Secondary to hypernatremia and acute kidney injury. Started on IV fluids. March 02: Patient received IV fluids overnight. More awake today. Answers some simple questions. Tired. knows that she is in the hospital. Patient was seen by neurology who ordered a lumbar puncture. March 03: Looking much better. Awake. Tolerating diet. Empirically on IV Zosyn per ID. No fever. Answering questions appropriately. Review of systems: Was done for constitutional, cardiovascular, GI, pulmonary. relevant finding as above Active Medications Acetaminophen (Acetaminophen Tab 500 Mg Tab) 500 mg PO Q6HR PRN PRN Reason: Fever and/ or Pain Last Admin: 03/01/21 15:34 Dose: 500 mg Documented by: Albuterol Sulfate (Albuterol Nebulized 2.5 Mg/3 Ml) 2.5 mg INHALATION RT-Q4H PRN PRN Reason: Wheezing Alprazolam (Alprazolam 0.25 Mg Tab) 0.25 mg PO BID PRN PRN Reason: Anxiety Aspirin (Aspirin 81 Mg) 81 mg PO DAILY@0800 [facility] Last Admin: 03/03/21 08:49 Dose: 81 mg Documented by: Atorvastatin Calcium (Atorvastatin 20 Mg Tab) 20 mg PO HS@2000 [facility] Last Admin: 03/02/21 20:34 Dose: 20 mg Documented by: Barium Sulfate (Barium Sulfate 450 Ml Oral.Susp Bottle) 450 ml PO Q3HR PRN PRN Reason: CT Scan Stop: 03/04/21 10:15 Last Admin: 03/03/21 13:02 Dose: 450 ml Documented by: Cyanocobalamin (Cyanocobalamin 500 Mcg Tab) 1,000 mcg PO DAILY [facility] Fluconazole (Fluconazole 100 Mg Tab) 100 mg PO DAILY [facility] Last Admin: 03/03/21 08:49 Dose: 100 mg Documented by: Folic Acid (Folic Acid 1 Mg Tab) 1 mg PO DAILY [facility] Piperacillin Sod/Tazobactam (Sod 3.375 gm/ Sodium Chloride) 100 mls @ 25 mls/hr IVPB Q8HR [facility] Last Admin: 03/03/21 08:49 Dose: 25 mls/hr Documented by: Dextrose/Sodium Chloride (Dextrose 5%-1/2ns Iv Soln) 1,000 mls @ 130 mls/hr IV .Q7H42M [facility] Last Admin: 03/03/21 00:26 Dose: 130 mls/hr Documented by: Iopamidol (Iopamidol Contrast (Oral Use) Vial) 30 ml PO Q60M PRN PRN Reason: CT Scan Stop: 03/03/21 22:24 Levothyroxine Sodium (Levothyroxine 125 Mcg Tab) 250 mcg PO HS@1999 [facility] Last Admin: 03/02/21 20:34 Dose: 250 mcg Documented by: Methocarbamol (Methocarbamol 750 Mg Tab) 750 mg PO TID@0700,1500,2300 [facility] Last Admin: 03/03/21 06:12 Dose: 750 mg Documented by: Miscellaneous Information (Potassium Replacement Protocol 1 Each Misc) 1 each MISCELLANE DAILY PRN; Protocol PRN Reason: Per Protocol Montelukast Sodium (Montelukast 10 Mg Tab) 10 mg PO HS@1999 [facility] Last Admin: 03/02/21 20:35 Dose: 10 mg Documented by: Multivitamins (Multivitamins, Thera 1 Each Tab) 1 each PO DAILY@0800 [facility] Last Admin: 03/03/21 08:49 Dose: Not Given Documented by: Pantoprazole Sodium (Pantoprazole 40 Mg Tablet) 40 mg PO DAILY@0800 [facility] Last Admin: 03/03/21 08:49 Dose: 40 mg Documented by: Sertraline HCl (Sertraline 100 Mg Tab) 200 mg PO HS@1999 [facility] Last Admin: 03/02/21 20:35 Dose: 200 mg Documented by: Verapamil HCl (Verapamil Sr 180 Mg Tablet.Er) 180 mg PO BID@799,1999 [facility] Last Admin: 03/03/21 08:49 Dose: Not Given Documented by: Past medical history to include: Atrial fibrillation, asthma, CHF, DVT, GERD, hyperlipidemia, hypertension, osteoarthritis, PE, hypothyroid, Social history: Lives at [facility]. Assisted living. No history of smoking or alcohol Family history: Patient cannot tell Physical examination: VITAL SIGNS: 99.5, 82, 18, 126.84, 97% room air GENERAL: Kashif planning in bed, awake answering questions EYES: Pupils equal. Conjunctiva normal. HEENT: External appearance of nose and ears normal, oral cavity normal NECK: JVD unable to assess; masses not palpable. HEART: First and second heart sounds are normal; no edema. LUNGS: Respiratory rate normal; clear to auscultation. ABDOMEN: Soft, nontender, liver spleen not palpable, no masses palpable. PSYCH: Able to answer simple questions appropriately NEUROLOGICAL: Facial asymmetry with mouth slightly pulled to the right. Increase left palpebral fissure. Left arm contracture.. INVESTIGATIONS, reviewed in the clinical context: March 03: WBC 9.1 hemoglobin 14.2 platelets 99 sodium 148 potassium 3.5 chloride 119 bicarb 19 BUN 57 creatinine 1.09 CSF: Clear, RBC 75 total located cells 0 glucose 71 total protein 70 March 02: Sodium 147 potassium 3.2 BUN 80 creatinine 1.58 TSH 3.9 MRI brain: No evidence of infarct. Fairly moderate diffuse cerebral atrophy with possible NPH. Severe nonspecific white matter changes. 2-D echocardiogram: Moderate concentric LVH. EF 55-60%. EEG: Suggestive of moderate encephalopathy. No epileptiform activity. Carotid Doppler: No significant stenosis. White count 16.8 hemoglobin 16.5 platelets 161 sodium 153 potassium 4.1 BUN 103 creatinine 2.0 bicarbonate 20 Troponin I 0.646, 0.593 UA showing trace protein Coronavirus [PCR]: Not detected EKG tracing personally reviewed by me-normal sinus rhythm. Rate of 100 Chest x-ray film personally reviewed by me-some chronic patches Computed tomography scan of the brain: Central cerebral atrophy. Chronic small vessel ischemic disease. Need to exclude NPH Assessment and plan -Patient presented acute mental status changes. In the setting of hypernatremia and acute kidney injury. acute metabolic encephalopathy: Significantly improved Decrease IV fluids -Rule out viral meningitis. Pending HSV DNA by PCR. -Paroxysmal atrial fibrillation. Currently sinus rhythm Telemetry -Hypernatremia from free water deficit., Improving Continue IV fluids D5.45 at 50 mL an hour. Repeat labs -Acute kidney injury, likely prerenal from poor oral intake.: Improving Decrease IV fluids. Repeat labs -Acute metabolic acidosis from any failure, improved Continue IV fluids -Hypothyroid Continue Synthroid -Essential hypertension Continue with Verapamil SR 180 mg twice a day -Hyperlipidemia Continue with Lipitor -DO NOT RESUSCITATE Patient clinically doing much better. Awaiting HSV DNA by PCR. CT abdomen pelvis ordered by ID to rule out any other source of infection.
[2021-03-03] MEDS: FOLIC ACID 1 MG TAB PO SCH (16:03)
--- NOTE | 2021-03-03 16:29 | PN ---
PROGRESS NOTE DATE OF SERVICE: 03/03/2021 REASON FOR FOLLOWUP VISIT: Fever, question of aspiration pneumonia versus abdominal source. INTERVAL HISTORY: Patient is afebrile today. The patient is slightly more weak. The patient is breathing comfortably on room air. The patient more awake and alert per the nursing staff. Apparently no difficulty swallowing. No vomiting or diarrhea has been reported. PHYSICAL EXAMINATION: Blood pressure 126/84, pulse of 83, temperature 97. She is 97% on room air. The patient is an elderly female lying in no bed in no acute distress. Respiratory system unlabored breathing, decreased breath sounds in the base, with no wheeze. Heart S1, S2. Regular rate and rhythm. Abdomen soft. LABS: Hemoglobin is 14, bilirubin 9.1, BUN of 57 with creatinine 1.09. DIAGNOSTIC IMPRESSION AND PLAN: Patient admitted to the hospital with sepsis, fever, elevated white count and mental status changes, status post LP. Concern for possible aspiration pneumonitis versus abdominal source. Patient's fever responded to Zosyn, which is to continue. Waiting for CT of abdomen and pelvis. MMODL / IJN: [id number] /
--- NOTE | 2021-03-03 17:10 | CT ---
EXAMINATION TYPE: CT abdomen pelvis wo con DATE OF EXAM: 03/03/2021 COMPARISON: None HISTORY: Sepsis. CT DLP: 1056.4 mGycm Automated exposure control for dose reduction was used. Images obtained from the diaphragm to the floor the pelvis with no IV contrast. There is oral contras t.. There is subsegmental atelectasis at the lung bases. Heart size is normal. There is no pericardial ef fusion. Stomach is intact. There is normal-appearing stomach. Gallbladder appears normal. The bile du cts are not dilated. Liver shows no focal defect. Spleen is intact. There is no adrenal mass. Kidneys have normal size. There is no hydronephrosis. The ureters are not d ilated. There is no retroperitoneal adenopathy. Abdominal aorta is atheromatous. The urinary bladder is empty. There is Giraldo catheter in the urinary bladder. There is no inguinal hernia. There is no fr ee fluid in the pelvis. Uterus is anteverted. There is no evidence of pelvic mass. There are multiple sigmoid diverticula. There is no diverticulitis. There is oral contrast extending to the sigmoid col on. Appendix is not seen. There is no sign of thickened appendix. There is a mild lumbar dextroscoliosis. There is vacuum disc and degenerative spurring in the lumbar spine. The bony pelvis is intact. The hip joints are intact. There is mild acetabular spurring on the right side. There is multilevel thoracic spondylotic changes. There is no mesenteric edema. There is no ascites or free air. There is no evidence of a bowel obstru ction. IMPRESSION: Sigmoid diverticulosis without diverticulitis. Spondylotic changes in the lumbar spine. Scoliotic deformity. There is evidence for multilevel lumbar bony spinal stenosis related to scoliosis and facet arthropathy. I do not see a cause for sepsis.
[2021-03-03] MEDS: MONTELUKAST 10 MG TAB PO SCH (21:09)
[2021-03-03] MEDS: ATORVASTATIN 20 MG TAB PO SCH (21:09)
[2021-03-03] MEDS: LEVOTHYROXINE 125 MCG TAB PO SCH (21:09)
[2021-03-03] MEDS: ACETAMINOPHEN TAB 500 MG TAB PO PRN (21:10)
[2021-03-03] MEDS: SERTRALINE 100 MG TAB PO SCH (21:10)
[2021-03-03] MEDS: ALPRAZolam 0.25 MG TAB PO PRN (21:11)
[2021-03-04] MEDS: DEXTROSE 5%-0.45% NACL 1,000 ML IV SCH ×2 (01:58→16:33)
[2021-03-04] MEDS: methocarbamoL 750 MG TAB PO SCH ×3 (06:17→21:14)
[2021-03-04 06:27] LABS: Calcium 8.8 mg/dL (8.4-10.2); Potassium 3.3 mmol/L (3.5-5.1)
[2021-03-04] MEDS: MULTIVITAMINS, THERA 1 EACH TAB PO SCH (10:08)
[2021-03-04] MEDS: FOLIC ACID 1 MG TAB PO SCH (10:08)
[2021-03-04] MEDS: ASPIRIN 81 MG PO SCH (10:08)
[2021-03-04] MEDS: CYANOCOBALAMIN 500 MCG TAB PO SCH (10:08)
[2021-03-04] MEDS: PANTOPRAZOLE 40 MG TABLET PO SCH (10:08)
[2021-03-04] MEDS: FLUCONAZOLE 100 MG TAB PO SCH (10:08)
[2021-03-04] MEDS: VERAPAMIL SR 180 MG TABLET.ER PO SCH ×3 (10:09→23:56)
[2021-03-04] MEDS: PIPERACILLIN-TAZOBACTAM 3.375 GM in SODIUM CHLORIDE 0.9% 100 ML IVPB SCH ×3 (10:09→23:57)
[2021-03-04] MEDS ORDERED: POTASSIUM CHLORIDE ER 20 MEQ TAB.ER PO STA (13:56)
--- NOTE | 2021-03-04 13:58 | P.PN ---
Progress Note - Text Progress Note Date: 03/04/21 Chief Complaint: Not talking History of presenting complaint: This is a 75-year-old patient who follows with Dr. Tomás Rios. Patient is a resident of assisted living [facility]. Patient was found by the staff this morning to be unresponsive. Patient was last seen normal before she went to bed. Around 9 PM previous night. No complaints. 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 As per the EMS patient was responding to painful stimuli but otherwise not alert. Patient had a fixed gaze forward and will not track with her eyes. She was making some non- painful speech. Her pulse was noted to be a bit rapid and strong palpation. Patient's put on nasal cannula. EKG showed sinus tachycardia. IV access was done. Patient herself is not able to give me any history. Could only speak her name. Patient admitted with what was felt to be acute metabolic encephalopathy. Secondary to hypernatremia and acute kidney injury. Started on IV fluids. March 02: Patient received IV fluids overnight. More awake today. Answers some simple questions. Tired. knows that she is in the hospital. Patient was seen by neurology who ordered a lumbar puncture. March 03: Looking much better. Awake. Tolerating diet. Empirically on IV Zosyn per ID. No fever. Answering questions appropriately. March 04: Comfortable. On IV Zosyn. Back to baseline. Communicating. Review of systems: Was done for constitutional, cardiovascular, GI, pulmonary. relevant finding as above Active Medications Acetaminophen (Acetaminophen Tab 500 Mg Tab) 500 mg PO Q6HR PRN PRN Reason: Fever and/ or Pain Last Admin: 03/03/21 21:10 Dose: 500 mg Documented by: Albuterol Sulfate (Albuterol Nebulized 2.5 Mg/3 Ml) 2.5 mg INHALATION RT-Q4H PRN PRN Reason: Wheezing Alprazolam (Alprazolam 0.25 Mg Tab) 0.25 mg PO BID PRN PRN Reason: Anxiety Last Admin: 03/03/21 21:11 Dose: 0.25 mg Documented by: Aspirin (Aspirin 81 Mg) 81 mg PO DAILY@0800 [facility] Last Admin: 03/04/21 10:08 Dose: 81 mg Documented by: Atorvastatin Calcium (Atorvastatin 20 Mg Tab) 20 mg PO HS@2000 [facility] Last Admin: 03/03/21 21:09 Dose: 20 mg Documented by: Cyanocobalamin (Cyanocobalamin 500 Mcg Tab) 1,000 mcg PO DAILY [facility] Last Admin: 03/04/21 10:08 Dose: 1,000 mcg Documented by: Fluconazole (Fluconazole 100 Mg Tab) 100 mg PO DAILY [facility] Last Admin: 03/04/21 10:08 Dose: 100 mg Documented by: Folic Acid (Folic Acid 1 Mg Tab) 1 mg PO DAILY [facility] Last Admin: 03/04/21 10:08 Dose: 1 mg Documented by: Piperacillin Sod/Tazobactam (Sod 3.375 gm/ Sodium Chloride) 100 mls @ 25 mls/hr IVPB Q8HR [facility] Last Admin: 03/04/21 10:09 Dose: 25 mls/hr Documented by: Dextrose/Sodium Chloride (Dextrose 5%-1/2ns Iv Soln) 1,000 mls @ 50 mls/hr IV .Q20H [facility] Last Admin: 03/04/21 01:58 Dose: Not Given Documented by: Levothyroxine Sodium (Levothyroxine 125 Mcg Tab) 250 mcg PO HS@1999 [facility] Last Admin: 03/03/21 21:09 Dose: 250 mcg Documented by: Methocarbamol (Methocarbamol 750 Mg Tab) 750 mg PO TID@0700,1500,2300 [facility] Last Admin: 03/04/21 06:17 Dose: 750 mg Documented by: Miscellaneous Information (Potassium Replacement Protocol 1 Each Misc) 1 each MISCELLANE DAILY PRN; Protocol PRN Reason: Per Protocol Montelukast Sodium (Montelukast 10 Mg Tab) 10 mg PO HS@1999 [facility] Last Admin: 03/03/21 21:09 Dose: 10 mg Documented by: Multivitamins (Multivitamins, Thera 1 Each Tab) 1 each PO DAILY@0800 [facility] Last Admin: 03/04/21 10:08 Dose: 1 each Documented by: Pantoprazole Sodium (Pantoprazole 40 Mg Tablet) 40 mg PO DAILY@0800 [facility] Last Admin: 03/04/21 10:08 Dose: 40 mg Documented by: Sertraline HCl (Sertraline 100 Mg Tab) 200 mg PO HS@1999 [facility] Last Admin: 03/03/21 21:10 Dose: 200 mg Documented by: Verapamil HCl (Verapamil Sr 180 Mg Tablet.Er) 180 mg PO BID@ [facility] Last Admin: 03/04/21 10:13 Dose: Not Given Documented by: Past medical history to include: Atrial fibrillation, asthma, CHF, DVT, GERD, hyperlipidemia, hypertension, osteoarthritis, PE, hypothyroid, Social history: Lives at [facility]. Assisted living. No history of smoking or alcohol Family history: Patient cannot tell Physical examination: VITAL SIGNS: 98.2, 73, 16, 126/83, 96% room air GENERAL: reclining in bed, awake answering questions EYES: Pupils equal. Conjunctiva normal. HEENT: External appearance of nose and ears normal, oral cavity normal NECK: JVD unable to assess; masses not palpable. HEART: First and second heart sounds are normal; no edema. LUNGS: Respiratory rate normal; clear to auscultation. ABDOMEN: Soft, nontender, liver spleen not palpable, no masses palpable. PSYCH: Able to answer simple questions appropriately NEUROLOGICAL: Facial asymmetry with mouth slightly pulled to the right. Increase left palpebral fissure. Left arm contracture.. INVESTIGATIONS, reviewed in the clinical context: March 04: Sodium 148 potassium 3.3 BUN [address] abdomen pelvis without contrast: Sigmoid diverticulosis. Spondylitic changes. Scattered spinal stenosis. March 03: WBC 9.1 hemoglobin 14.2 platelets 99 sodium 148 potassium 3.5 chloride 119 bicarb 19 BUN 57 creatinine 1.09 CSF: Clear, RBC 75 total located cells 0 glucose 71 total protein 70 March 02: Sodium 147 potassium 3.2 BUN 80 creatinine 1.58 TSH 3.9 MRI brain: No evidence of infarct. Fairly moderate diffuse cerebral atrophy with possible NPH. Severe nonspecific white matter changes. 2-D echocardiogram: Moderate concentric LVH. EF 55-60%. EEG: Suggestive of moderate encephalopathy. No epileptiform activity. Carotid Doppler: No significant stenosis. White count 16.8 hemoglobin 16.5 platelets 161 sodium 153 potassium 4.1 BUN 103 creatinine 2.0 bicarbonate 20 Troponin I 0.646, 0.593 UA showing trace protein Coronavirus [PCR]: Not detected EKG tracing personally reviewed by me-normal sinus rhythm. Rate of 100 Chest x-ray film personally reviewed by me-some chronic patches Computed tomography scan of the brain: Central cerebral atrophy. Chronic small vessel ischemic disease. Need to exclude NPH Assessment and plan -Patient presented acute mental status changes. In the setting of hypernatremia and acute kidney injury. acute metabolic encephalopathy: Corrected Decrease IV fluids -Rule out viral meningitis. Pending HSV DNA by PCR. -Paroxysmal atrial fibrillation. Currently sinus rhythm Telemetry -Hypernatremia from free water deficit., Improving Continue IV fluids D5.45 at 50 mL an hour. Repeat labs -Acute kidney injury, likely prerenal from poor oral intake.: Improving IV fluids. Repeat labs -Acute metabolic acidosis from any failure, improved Continue IV fluids -Hypothyroid Continue Synthroid -Essential hypertension Continue with Verapamil SR 180 mg twice a day -Hyperlipidemia Continue with Lipitor -DO NOT RESUSCITATE Awaiting HSV DNA by PCR. Continue current medications. Hopefully can be discharged to [facility] tomorrow. Antibiotics per ID
--- NOTE | 2021-03-04 14:45 | CDI ---
Documentation Clarification Form Date: 03/04/2021 02:24:29 PM From: Eryn Sharpe RN CCDS Admit Date: 03/01/2021 10:13:00 AM Patient Name: Josie Leavitt Visit Number: [id number] Discharge Date: ATTENTION: The Clinical Documentation Specialists (CDI) and [facility] Coding Staff appreciate your assistance in clarifying documentation. Please respond to the clarification below the line at the bottom and electronically sign. The CDI & [facility] Coding staff will review the response and follow-up if needed. Please note: Queries are made part of the Legal Health Record. If you have any questions, please contact the author of this message via ITS. Dr. Shekhar Palomares The patient presented with the following clinical indicators. Additional clarification regarding the etiology/cause of the clinical indicators is requested. History/Risk Factors: 75-year-old woman presents to the ED from assisted living after being found unresponsive. Medical history: Atrial fibrillation, Asthma, CHF, DVT, HLD, HTN, OA, PE and hypothyroid. H&P 03/01. Clinical Indicators: Patient admitted to the hospital with sepsis, fever, elevated white count and mental status changes, status post LP. Concern for possible aspiration pneumonitis versus abdominal source. Patients fever responded to Zosyn, which is to continue. ID progress note 03/04. WBC: 03/01 16.8 Lactic acid: 03/01 1.6 Blood cultures: 03/01 No growth after 72 hours. Cerebral spinal fluid: 03/02 No polymorphonuclear leukocytes; no organisms seen. Vitals signs: B/P 125/83; HR 100; Temp 100.4 F Axillary; RR 28; Spo2 94% nasal cannula no L documented. Treatment: ID Consult: 03/02 Patient presented to the hospital with mental status changes in this patient who did have a fever on presentation to the hospital. The patient did have elevated white count, but no obvious focus of infection on initial testing with negative CXR and negative UA. CSF did show elevated protein, but white count was concern for possible abdominal source. The patient did have some clear response to the IV fluid as well as Zosyn. Antibiotics: 03/01 Piperacillin Sod/Tazobactam Sod 3.375gm IVPB x 1; 03/01 Piperacillin Sod/Tazobactam Sod 3.375gm IVPB Q8HR NORMA to current. IV Fluid bolus: 03/01 0.9NS 500mls @1,000 mls/hr IV Q35M NORMA 3 bags. In your professional opinion, please clarify if these findings signify one of the following conditions: [ ] Sepsis POA [ ] Sepsis ruled out [ ] Other, please specify [ ] Unable to determine SIRS Criteria: 2 or more of the following may indicate SIRS -Temperature < 96.8F (36C) or > 101.0F (38.3C) -Heart Rate > 90 bpm -Respiratory Rate > 20 breaths/min or PaCO2 < 32 mmHg -White Blood Cell Count > 12,000 or < 4,000 cells/mm3 or > 10% bands Sepsis ruled out (Template Last Reviewed: August 2020) MARÍAD
[2021-03-04] MEDS: LOPERAMIDE 2 MG CAP PO PRN ×2 (16:45→21:15)
[2021-03-04] MEDS ORDERED: LOPERAMIDE 2 MG CAP PO SCH (18:00)
[2021-03-04] MEDS: ACETAMINOPHEN TAB 500 MG TAB PO PRN (21:13)
[2021-03-04] MEDS: ALPRAZolam 0.25 MG TAB PO PRN (21:14)
[2021-03-04] MEDS: MONTELUKAST 10 MG TAB PO SCH (21:14)
[2021-03-04] MEDS: ATORVASTATIN 20 MG TAB PO SCH (21:14)
[2021-03-04] MEDS: SERTRALINE 100 MG TAB PO SCH (21:14)
[2021-03-04] MEDS: LEVOTHYROXINE 125 MCG TAB PO SCH (21:14)
--- NOTE | 2021-03-04 23:42 | PN ---
PROGRESS NOTE DATE OF SERVICE: 03/04/2021 REASON FOR FOLLOWUP: Fever, concerning for pneumonitis. INTERVAL HISTORY: The patient is afebrile. The patient is more awake and alert today. She is breathing comfortably. No vomiting, diarrhea, or other changes reported per the nursing staff. PHYSICAL EXAMINATION: Blood pressure 129/92 with a pulse of 73, temperature 97.9. She is 97% on room air. General description is an elderly female lying in bed in no distress. Respiratory system: Unlabored breathing, decreased breath sounds at the base. No wheeze. Heart: S1, S2. Regular rate and rhythm. Abdomen soft, no tenderness. LABS: BUN of 40, creatinine 1.10. White count normalized to 9.1. Blood culture negative. The patient did have CSF examination and culture has been negative. DIAGNOSTIC IMPRESSION AND PLAN: Patient admitted to the hospital with sepsis with a fever, elevated white count. Concern for possible abdominal source in this patient who has shown overall improvement with Unasyn, finishing therapy with oral Augmentin for about a week. Discussed with the admitting physician. MMODL / IJN: [id number] /
[2021-03-05] MEDS: methocarbamoL 750 MG TAB PO SCH (08:31)
[2021-03-05] MEDS: VERAPAMIL SR 180 MG TABLET.ER PO SCH (08:47)
[2021-03-05 08:50] LABS: Calcium 8.6 mg/dL (8.4-10.2); Potassium 3.7 mmol/L (3.5-5.1)
[2021-03-05] MEDS: PANTOPRAZOLE 40 MG TABLET PO SCH (09:50)
[2021-03-05] MEDS: ASPIRIN 81 MG PO SCH (09:50)
[2021-03-05] MEDS: FLUCONAZOLE 100 MG TAB PO SCH (09:50)
[2021-03-05] MEDS: CYANOCOBALAMIN 500 MCG TAB PO SCH (09:50)
[2021-03-05] MEDS: FOLIC ACID 1 MG TAB PO SCH (09:50)
[2021-03-05] MEDS: MULTIVITAMINS, THERA 1 EACH TAB PO SCH (09:50)
[2021-03-05] MEDS: PIPERACILLIN-TAZOBACTAM 3.375 GM in SODIUM CHLORIDE 0.9% 100 ML IVPB SCH (09:51)
[2021-03-05 13:04] LABS: T4, Free (Free Thyroxine) 1.59 ng/dL (0.78-2.19)
--- NOTE | 2021-03-05 13:16 | P.DS ---
Providers Date of admission: 03/01/21 10:13 Expected date of discharge: 03/05/21 Attending physician: Shekhar Palomares Consults: 03/01/21 10:13 Consult Physician Urgent Consulting Provider: [facility] Consult Reason/Comments: Elevated troponin Do you want consulting provider notified?: Yes 03/01/21 22:48 Consult Physician Routine Consulting Provider: Jose Degroot Consult Reason/Comments: Altered mental status Do you want consulting provider notified?: Yes 03/02/21 09:49 Consult to Anesthesia Stat Consulting Provider: [facility] Consult Reason/Comments: lumbar puncture 03/02/21 09:50 Consult Physician Urgent Consulting Provider: Toya Ram Consult Reason/Comments: fever, leukocytosis, altered mental Do you want consulting provider notified?: Yes Primary care physician: Tomás Hanks [facility] Course: History of presenting complaint: This is a 75-year-old patient who follows with Dr. Tomás Rios. Patient is a resident of assisted living [facility]. Patient was found by the staff this morning to be unresponsive. Patient was last seen normal before she went to bed. Around 9 PM previous night. No complaints. 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 As per the EMS patient was responding to painful stimuli but otherwise not alert. Patient had a fixed gaze forward and will not track with her eyes. She was making some non- painful speech. Her pulse was noted to be a bit rapid and strong palpation. Patient's put on nasal cannula. EKG showed sinus tachycardia. IV access was done. Patient herself is not able to give me any history. Could only speak her name. Patient admitted with what was felt to be acute metabolic encephalopathy. Secondary to hypernatremia and acute kidney injury. Started on IV fluids. Patient fully recovered with the renal function and sodium becoming normal. Neurology ordered a lumbar puncture CSF was nonspecific Computed tomography scan of the abdomen unremarkable. March 02: Patient received IV fluids overnight. More awake today. Answers some simple questions. Tired. knows that she is in the hospital. Patient was seen by neurology who ordered a lumbar puncture. March 03: Looking much better. Awake. Tolerating diet. Empirically on IV Zosyn per ID. No fever. Answering questions appropriately. February 5: Comfortable. On IV Zosyn. Back to baseline. Communicating. Newborn 6: Sitting up. Comfortable. per ID completed a course of Augmentin. Otherwise feeling well. Consultation: Dr. Ram from ID Dr. Degroot from neurology [facility] Past medical history to include: Atrial fibrillation, asthma, CHF, DVT, GERD, hyperlipidemia, hypertension, osteoarthritis, PE, hypothyroid, Social history: Lives at [facility]. Assisted living. No history of smoking or alcohol Family history: Patient cannot tell Physical examination: VITAL SIGNS: 98.4, 68, 15, 131/73, 98% room air GENERAL: reclining in bed, awake answering questions EYES: Pupils equal. Conjunctiva normal. HEENT: External appearance of nose and ears normal, oral cavity normal NECK: JVD unable to assess; masses not palpable. HEART: First and second heart sounds are normal; no edema. LUNGS: Respiratory rate normal; clear to auscultation. ABDOMEN: Soft, nontender, liver spleen not palpable, no masses palpable. PSYCH: Able to answer simple questions appropriately NEUROLOGICAL: Facial asymmetry with mouth slightly pulled to the right. Increase left palpebral fissure. Left arm contracture.. INVESTIGATIONS, reviewed in the clinical context: March 05: Sodium 144 potassium 3.7 creatinine 0.96 Herpes simplex wiliness type I, type II PCR: Not detected COVID 19: PCR/not detected March 04: Sodium 148 potassium 3.3 BUN [address] abdomen pelvis without contrast: Sigmoid diverticulosis. Spondylitic changes. Scattered spinal stenosis. March 03: WBC 9.1 hemoglobin 14.2 platelets 99 sodium 148 potassium 3.5 chloride 119 bicarb 19 BUN 57 creatinine 1.09 CSF: Clear, RBC 75 total located cells 0 glucose 71 total protein 70 March 02: Sodium 147 potassium 3.2 BUN 80 creatinine 1.58 TSH 3.9 MRI brain: No evidence of infarct. Fairly moderate diffuse cerebral atrophy with possible NPH. Severe nonspecific white matter changes. 2-D echocardiogram: Moderate concentric LVH. EF 55-60%. EEG: Suggestive of moderate encephalopathy. No epileptiform activity. Carotid Doppler: No significant stenosis. White count 16.8 hemoglobin 16.5 platelets 161 sodium 153 potassium 4.1 BUN 103 creatinine 2.0 bicarbonate 20 Troponin I 0.646, 0.593 UA showing trace protein Coronavirus [PCR]: Not detected EKG tracing personally reviewed by me-normal sinus rhythm. Rate of 100 Chest x-ray film personally reviewed by me-some chronic patches Computed tomography scan of the brain: Central cerebral atrophy. Chronic small vessel ischemic disease. Need to exclude NPH Assessment and plan -Patient presented acute mental status changes. hypernatremia and acute kidney injury. Causing acute metabolic encephalopathy: Corrected Received IV fluids -Paroxysmal atrial fibrillation. Currently sinus rhythm Telemetry -Hypernatremia from free water deficit., Improving Received IV fluids D5.45 at 50 mL an hour. 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 -DO NOT RESUSCITATE Disposition: [facility] Plan - Discharge Summary Discharge Rx Participant: Yes New Discharge Prescriptions: New Amoxicillin/Potassium Clav [Augmentin 875-125 Tablet] 1 tab PO Q12HR #10 tab Folic Acid 1 mg PO DAILY tab Loperamide [Imodium] 2 mg PO QID PRN cap PRN Reason: Loose Stool Cyanocobalamin [Vitamin B-12] 1,000 mcg PO DAILY tab Fluconazole [Diflucan] 100 mg PO DAILY #5 tab Continue Sertraline HCl [Zoloft] 200 mg PO HS@2000 Levothyroxine Sodium [Synthroid] 250 mcg PO HS@2000 Albuterol Sulfate [Proventil Hfa] 2 puff INHALATION RT-Q4H PRN PRN Reason: Wheezing Ergocalciferol (Vitamin D2) [Drisdol (50,000 Iu)] 50,000 unit PO FR@0800 Multivitamins, Thera [Multivitamin (formulary)] 1 tab PO DAILY@0800 Methocarbamol [Robaxin-750] 750 mg PO TID@0700,1500,2300 Montelukast [Singulair] 10 mg PO HS@2000 Verapamil Sr [Isoptin Sr] 180 mg PO BID@0800,1999 Atorvastatin [Lipitor] 20 mg PO HS@2000 ALPRAZolam [Xanax] 0.25 mg PO BID PRN #6 PRN Reason: Anxiety Aspirin EC [Ecotrin Low Dose] 81 mg PO DAILY@0800 Fluticasone Propionate [Flovent Hfa 110 mcg] 1 puff INHALATION RT- BID@799,1999 Omeprazole [PriLOSEC] 20 mg PO DAILY@0800 Changed Gabapentin [Neurontin] 300 mg PO HS #0 Discontinued Furosemide [Lasix] 20 mg PO BID@08,1999 Potassium Chloride [K-Tab ER] 20 meq PO MOTUWETHFR@0800 Fexofenadine HCl [Jamia Allergy] 180 mg PO DAILY@0800 Enalapril [Vasotec] 20 mg PO DAILY@0800 Discharge Medication List Albuterol Sulfate [Proventil Hfa] 2 puff INHALATION RT-Q4H PRN 08/24/18 [History] Ergocalciferol (Vitamin D2) [Drisdol (50,000 Iu)] 50,000 unit PO FR@0800 08/24/18 [History] Levothyroxine Sodium [Synthroid] 250 mcg PO HS@199908/24/18 [History] Methocarbamol [Robaxin-750] 750 mg PO TID@0700,1500,2300 08/24/18 [History] Montelukast [Singulair] 10 mg PO HS@199908/24/18 [History] Multivitamins, Thera [Multivitamin (formulary)] 1 tab PO DAILY@0808/24/18 [History] Sertraline HCl [Zoloft] 200 mg PO HS@199908/24/18 [History] Verapamil Sr [Isoptin Sr] 180 mg PO BID@0800,199910/05/18 [History] Aspirin EC [Ecotrin Low Dose] 81 mg PO DAILY@0800 03/01/21 [History] Atorvastatin [Lipitor] 20 mg PO HS@199903/01/21 [History] Fluticasone Propionate [Flovent Hfa 110 mcg] 1 puff INHALATION RT-BID@00,199903/01/21 [History] Omeprazole [PriLOSEC] 20 mg PO DAILY@0800 03/01/21 [History] ALPRAZolam [Xanax] 0.25 mg PO BID PRN #6 03/05/21 [Rx] Amoxicillin/Potassium Clav [Augmentin 875-125 Tablet] 1 tab PO Q12HR #10 tab 03/05/21 [Rx] Cyanocobalamin [Vitamin B-12] 1,000 mcg PO DAILY tab 03/05/21 [Rx] Fluconazole [Diflucan] 100 mg PO DAILY #5 tab 03/05/21 [Rx] Folic Acid 1 mg PO DAILY tab 03/05/21 [Rx] Gabapentin [Neurontin] 300 mg PO HS #0 03/05/21 [Rx] Loperamide [Imodium] 2 mg PO QID PRN cap 03/05/21 [Rx] Follow up Appointment(s)/Referral(s): Yrn Schilling DO [STAFF PHYSICIAN] - 1-2 Days Tomás Hanks DO [Primary Care Provider] - As Needed
[2021-03-05 14:01] VITALS: BP 127/59; PULSE 65; RESP 16; TEMP 97.8
[2021-03-05] MEDS: DEXTROSE 5%-0.45% NACL 1,000 ML IV SCH (14:01)
--- NOTE | 2021-03-05 16:12 | PN ---
PROGRESS NOTE DATE OF SERVICE: 03/05/2021 REASON FOR FOLLOWUP: URI symptoms. INTERVAL HISTORY: The patient is afebrile. The patient is breathing more comfortably. Denies any chest pain, cough, no abdominal pain. No diarrhea. EXAM: Blood pressure 121/73 with a pulse of 78, temperature 98.4, she is 98% on room air. General description is an elderly female lying in bed in no distress. Respiratory system: Unlabored breathing. Decreased breath sounds in the base. No wheeze. Heart S1, S2. Abdomen soft, no tenderness. LABORATORY DATA: White count normalized. Creatinine 0.96. Blood culture negative. DIAGNOSTIC IMPRESSION AND PLAN: Patient admitted to the hospital with fever with mental status changes with concern for possible aspiration pneumonitis, possible abdominal source. Culture has been negative so far. White count normalized with Unasyn, finishing course with oral Augmentin and close outpatient followup. MMODL / IJN: [id number] /
--- NOTE | 2021-03-08 08:13 | CDI ---
Documentation Clarification Form Date: 03/08/21 From: Karla Nicholson Admit Date: 03/01/2021 10:13:00 AM Patient Name: Josie Leavitt Visit Number: [id number] Discharge Date: 03/05/2021 04:05:00 PM ATTENTION: The Clinical Documentation Specialists (CDI) and [facility] Coding Staff appreciate your assistance in clarifying documentation. Please respond to the clarification below the line at the bottom and electronically sign. The CDI & [facility] Coding staff will review the response and follow-up if needed. Please note: Queries are made part of the Legal Health Record. If you have any questions, please contact the author of this message via ITS. Dr. Shekhar Palomares, Unspecified CKD is documented in Dr Akins's consult and his 03/03 PN. Additional clarification regarding the stage of CKD is requested. History/Risk Factors: old stroke with residual left sided weakness, PAF, cerebral atrophy, HLD, asthma, hypothyroidism Patients Historical BUN/CR/GFR Clinical Indicators: Hypertension, heart failure, hypernatremia, MICHAEL, metabolic encephalopathy, acidosis, thrombocytopenia Lab dates: 03/01-03/05/21 Current BUN: 103, 80, 57, 40, 24 Current CR: 2.00, 1.58, 1.09, 1.10, 0.96 Current GFR: 24, 32, 50, 50, 59 Please clarify the stage of the CKD, if known: [ ] CKD Stage 1 (GFR > 90) [ ] CKD Stage 2 (GFR 60-89) [ ] CKD Stage 3 (GFR 30-59) [ ] CKD Stage 3a (GFR 45-59) [ ] CKD Stage 3b (GFR 30-44) [ ] CKD Stage 4 (GFR 15-29) [ ] CKD Stage 5 (GFR <15) [ ] ESRD [ ] Other, please specify [ ] Unable to determine No CK D MTDD
--- NOTE | 2021-03-08 08:22 | CDI ---
Documentation Clarification Form Date: 03/08/21 From: Karla Nicholson Admit Date: 03/01/2021 10:13:00 AM Patient Name: Josie Leavitt Visit Number: [id number] Discharge Date: 03/05/2021 04:05:00 PM ATTENTION: The Clinical Documentation Specialists (CDI) and [facility] Coding Staff appreciate your assistance in clarifying documentation. Please respond to the clarification below the line at the bottom and electronically sign. The CDI & [facility] Coding staff will review the response and follow-up if needed. Please note: Queries are made part of the Legal Health Record. If you have any questions, please contact the author of this message via ITS. Dr. Shekhar Palomares, Your patient has the documented diagnosis of unspecified CHF under past medical history in the ED Note, H&P, and all consults. Additional information regarding the [type, acuity] of CHF is requested. History/Risk Factors: Old stroke with residual left sided weakness, PAF, cerebral atrophy, HLD, asthma, hypothyroidism Clinical Indicators: Hypertension with CKD VS/Pulse OX: BNP: none Echocardiogram Results: Overall left ventricular systolic function is normal with, an EF between 55 - 60 %. 03/01 Chest X Ray: Some strandy areas of atelectasis. Old healed left-sided rib fracture deformities. No definite acute process. Treatment: Home meds of Lasix 20 mg po BID were discontinued In your professional opinion, can you please clarify the [acuity and type] of CHF if known? [ ] Chronic Systolic Heart Failure (reduced EF) [ ] Chronic Diastolic Heart Failure (preserved EF) [ ] Chronic Systolic & Diastolic Heart Failure [ ] Unable to determine No CHF MTDD
== END 2021-03-05 16:05 | DRG 640 ==
LOC: EC 06:58 → 3SCARD 10:13 → 3NCARDOBS 03-02 00:08 → 3SCARD 03-02 00:08
PROVIDERS: ADMIT Hospitalist; ATTEND Hospitalist
PROC: 009U3ZX Drainage of Spinal Canal, Percutaneous Approach, Diagnostic (ICD-10-PCS; principal; 2021-03-02 16:00)
DX: E87.0 Hyperosmolality and hypernatremia (principal); G93.41 Metabolic encephalopathy; N17.9 Acute kidney failure, unspecified; I69.354 Hemiplegia and hemiparesis following cerebral infarction affecting left non-dominant side; J98.11 Atelectasis; E87.2 Acidosis; D69.6 Thrombocytopenia, unspecified; I65.03 Occlusion and stenosis of bilateral vertebral arteries; I48.0 Paroxysmal atrial fibrillation; E86.0 Dehydration; G31.9 Degenerative disease of nervous system, unspecified; Z66 Do not resuscitate; Z20.822 Contact with and (suspected) exposure to COVID-19; G93.89 Other specified disorders of brain; I10 Essential (primary) hypertension; E03.9 Hypothyroidism, unspecified; E78.5 Hyperlipidemia, unspecified; J45.909 Unspecified asthma, uncomplicated; I45.9 Conduction disorder, unspecified; K21.9 Gastro-esophageal reflux disease without esophagitis; F32.9 Major depressive disorder, single episode, unspecified; M19.90 Unspecified osteoarthritis, unspecified site; I87.8 Other specified disorders of veins; F41.9 Anxiety disorder, unspecified; R77.8 Other specified abnormalities of plasma proteins; Z79.82 Long term (current) use of aspirin; Z79.51 Long term (current) use of inhaled steroids; Z79.890 Hormone replacement therapy; Z79.899 Other long term (current) drug therapy; Z86.718 Personal history of other venous thrombosis and embolism; Z86.711 Personal history of pulmonary embolism; Z86.14 Personal history of Methicillin resistant Staphylococcus aureus infection; Z90.49 Acquired absence of other specified parts of digestive tract; Z87.19 Personal history of other diseases of the digestive system; Z90.89 Acquired absence of other organs; Z86.69 Personal history of other diseases of the nervous system and sense organs; Z87.81 Personal history of (healed) traumatic fracture; Z87.42 Personal history of other diseases of the female genital tract; Z98.890 Other specified postprocedural states; Z88.6 Allergy status to analgesic agent; Z88.1 Allergy status to other antibiotic agents; Z91.030 Bee allergy status; Z91.041 Radiographic dye allergy status; Z88.5 Allergy status to narcotic agent; Z88.7 Allergy status to serum and vaccine; Z88.8 Allergy status to other drugs, medicaments and biological substances; Z91.048 Other nonmedicinal substance allergy status; Z82.49 Family history of ischemic heart disease and other diseases of the circulatory system
CPT/HCPCS: 36415; 62270; 70450; 70551; 71046; 74176; 80048; 80053; 81003; 82607; 82746; 82747; 82945; 83036; 83605; 83873; 84145; 84157; 84439; 84443; 84484; 85025; 85610; 85730; 87040; 87070; 87205; 87529; 87635; 87801; 89050; 93005; 93306; 93880; 94760; 95816; 96365; 99285